=== PATIENT | male | born 1965 | race Caucasian/White ===

== ENCOUNTER 2020-08-05 13:24 | Emergency (ER) | payer BC ==
--- NOTE | 2020-08-05 15:55 | EDM.PDOC ---
ED HPI GENERAL MEDICAL PROBLEM - General Chief Complaint: Cardiovascular Problem Stated Complaint: WEAKNESS Time Seen by Provider: 08/05/20 13:40 Source of Information: Reports: Patient, RN Notes Reviewed - History of Present Illness INITIAL COMMENTS - FREE TEXT/NARRATIVE: 54 yr old male referred to ED to R/O OLEG. He apparently went to the clinic with C/O fatigue, not feeling well for about a month. Labs were done at the clinic, faxed over to us for review. He denies chest or abd pain at time of exam. He did admit to triage nurse that he is drinking large amounts of liquor daily. Not currently working. Chronic cough but not worse than usual. No recent fever or chills. - Related Data Allergies Allergy/AdvReac Type Severity Reaction Status Date / Time naproxen [From Aleve] Allergy Severe Rash Verified 08/05/20 13:45 Past Medical History HEENT History: Reports: Impaired Vision Cardiovascular History: Reports: Hypertension Psychiatric History: Reports: Depression - Past Surgical History Musculoskeletal Surgical History: Reports: Other (See Below) Other Musculoskeletal Surgeries/Procedures:: knee surgery Social & Family History - Tobacco Use Tobacco Use Status *Q: Current Every Day Tobacco User Years of Tobacco use: 25 Packs/Tins Daily: 2 - Caffeine Use Caffeine Use: Reports: Coffee - Recreational Drug Use Recreational Drug Use: No ED ROS GENERAL - Review of Systems Review Of Systems: See Below Constitutional: Denies: Fever, Chills, Diaphoresis HEENT: Reports: No Symptoms Respiratory: Reports: Cough Cardiovascular: Denies: Chest Pain Endocrine: Reports: Fatigue GI/Abdominal: Reports: Decreased Appetite. Denies: Nausea, Vomiting : Reports: No Symptoms Musculoskeletal: Reports: No Symptoms Skin: Reports: No Symptoms Neurological: Reports: Other (low energy). Denies: Trouble Speaking, Difficulty Walking ED EXAM, GENERAL - Physical Exam Exam: See Below General Appearance: Alert, No Apparent Distress Head: Atraumatic. No: Facial Swelling Neck: Supple, Other (No JVD) Respiratory/Chest: No Respiratory Distress, Lungs Clear, Normal Breath Sounds. No: Rhonchi, Wheezing Cardiovascular: Regular Rate, Rhythm GI/Abdominal: Soft, Non-Tender Back Exam: No: CVA Tenderness (L), CVA Tenderness (R) Extremities: Non-Tender. No: Pedal Edema, Leg Pain, Increased Warmth, Redness Neurological: Alert, Oriented, No Motor/Sensory Deficits Skin Exam: Warm, Dry, Normal Color #1 Interpretation EKG Date: 08/05/20 Rhythm: NSR [place]: Normal P-Wave: Present QRS: Normal ST-T: Normal Course - Vital Signs Last Recorded V/S: Last Vital Signs Temp 97.1 F 08/05/20 13:39 Pulse 96 08/05/20 13:39 Resp 16 08/05/20 13:39 BP 166/87 H 08/05/20 13:39 Pulse Ox 96 08/05/20 13:39 - Orders/Labs/Meds Orders: Active Orders 24 hr Category Date Time Status EKG 12 Lead [EKG Documentation Completion] [RC] STAT Care 08/05/20 13:56 Active Labs: Laboratory Tests 08/05/20 Range/Units 14:15 Troponin I < 0.017 (0.00-0.056) ng/mL - Re-Assessments/Exams Free Text/Narrative Re-Assessment/Exam: 08/05/20 16:18 EKG does not show acute changes, trop did come back neg. Labs from clinic reviewed. covid neg. Discharge instr. as documented. Departure - Departure Time of Disposition: 16:03 Disposition: Home, Self-Care 01 Condition: Fair Clinical Impression: Fatigue, Alcohol abuse Instructions: Alcohol Use Disorder, Fatigue Referrals: PCP,None [Primary Care Provider] - Forms: ED Department Discharge Additional Instructions: Cut back on the amount of alcohol you are drinking to a more reasonable amount. Eat a healthy balanced diet with regular meals and snacks. Start a multivitamin once daily. Follow up clinic later this week or early next week for further evaluation and treatment. Sepsis Event Note (ED) - Evaluation Sepsis Screening Result: No Definite Risk - Focused Exam Vital Signs: Vital Signs Temp Pulse Resp BP Pulse Ox 08/05/20 13:39 97.1 F 96 16 166/87 H 96 - My Orders Last 24 Hours: My Active Orders 08/05/20 13:56 EKG 12 Lead [EKG Documentation Completion] [RC] STAT - Assessment/Plan Last 24 Hours: My Active Orders 08/05/20 13:56 EKG 12 Lead [EKG Documentation Completion] [RC] STAT
== END 2020-08-05 16:15 | disposition home or self-care (01) ==
LOC: JD.ED 13:24
DX: R53.83 Other fatigue (principal); F10.10 Alcohol abuse, uncomplicated; I10 Essential (primary) hypertension; F17.210 Nicotine dependence, cigarettes, uncomplicated
CPT/HCPCS: 36415; 84484; 93005; 99282; 99284-25

== ENCOUNTER 2020-10-07 07:12 | Inpatient (IN) | payer BC ==
[~2020-10-07 07:12] MED LIST: Lidocaine 1%/Sod Bicarbonate in NS 8.4% 1 ML Syringe IDERM PRN; Sodium Chloride 0.9% 10 ML Syringe FLUSH PRN
[2020-10-07] MEDS ORDERED: Bupivacaine 0.5%/EPINEPHrine 1:200,000 50 ML MDV ONE (07:15)
[2020-10-07] MEDS ORDERED: Lidocaine 1% with EPINEPHrine 1:100,000 20 ML MDV ONE (07:15)
[2020-10-07] MEDS: Lactated Ringers 1,000 ML IV SCH ×2 (07:20→08:46)
[2020-10-07] MEDS ORDERED: Lidocaine 1% 4 ML ONE (07:22)
[2020-10-07] MEDS ORDERED: fentaNYL 250 MCG/5 ML SDV ONE (07:22)
[2020-10-07] MEDS ORDERED: Propofol 200 MG/20 ML SDV ONE (07:22)
[2020-10-07] MEDS ORDERED: Midazolam 1 MG/ML 2 ML SDV ONE (07:22)
[2020-10-07] MEDS ORDERED: Dexamethasone 4 MG/ML 5 ML MDV ONE (07:24)
[2020-10-07] MEDS ORDERED: Ondansetron 4 MG/2 ML SDV ONE (07:24)
[2020-10-07] MEDS ORDERED: Rocuronium 50 MG/5 ML Vial ONE ×3 (07:25→13:09)
[2020-10-07] MEDS ORDERED: Ertapenem 1 GM Vial ONE (07:26)
--- NOTE | 2020-10-07 07:29 | PCM.PREANE ---
Preanesthetic Assessment - Procedure Proposed Procedure: laparoscopic extended right colectomy - Anesthesia/Transfusion/Family Hx Anesthesia History: Prior Anesthesia Without Reaction Family History of Anesthesia Reaction: No Transfusion History: No Prior Transfusion(s) Intubation History: Unknown - Review of Systems General: No Symptoms Pulmonary: No Symptoms Cardiovascular: No Symptoms Gastrointestinal: No Symptoms Neurological: No Symptoms Other: Reports: Thyroid Problems - Physical Assessment NPO Status Date: 10/06/20 NPO Status Time: 23:00 Height: 1.93 m Weight: 90.5 kg ASA Class: 3 Mental Status: Alert & Oriented x3 Dentition: Reports: Caries (poor dentition ) Thyro-Mental Finger Breadths: 3 Mouth Opening Finger Breadths: 5 ROM/Head Extension: Full - Allergies Allergies/Adverse Reactions: Allergies Allergy/AdvReac Type Severity Reaction Status Date / Time naproxen [From Aleve] Allergy Severe Rash Verified 10/06/20 09:42 - Blood Blood Available: No - Anesthesia Plan Pre-Op Medication Ordered: None - Acknowledgements Anesthesia Type Planned: General Anesthesia Pt an Appropriate Candidate for the Planned Anesthesia: Yes Alternatives and Risks of Anesthesia Discussed w Pt/Guardian: Yes Pt/Guardian Understands and Agrees with Anesthesia Plan: Yes PreAnesthesia Questionnaire HEENT History: Reports: Impaired Vision Cardiovascular History: Reports: Hypertension Respiratory History: Reports: None Gastrointestinal History: Reports: Other (See Below) Other Gastrointestinal History: colon mass Genitourinary History: Reports: None BETTING AGENCY MANAGER History: Reports: None Musculoskeletal History: Reports: Other (See Below) Other Musculoskeletal History: left knee surgery Neurological History: Reports: Other (See Below) Other Neuro History: bilateral foot tingling Psychiatric History: Reports: Addiction, Depression Endocrine/Metabolic History: Reports: Hypothyroidism Hematologic History: Reports: None Immunologic History: Reports: None Oncologic (Cancer) History: Reports: Colon Dermatologic History: Reports: None - Infectious Disease History Infectious Disease History: Reports: None - Past Surgical History Head Surgeries/Procedures: Reports: None Cardiovascular Surgical History: Reports: None Respiratory Surgical History: Reports: None GI Surgical History: Reports: Colonoscopy Female Surgical History: Reports: None Male Surgical History: Reports: None Endocrine Surgical History: Reports: None Neurological Surgical History: Reports: None Musculoskeletal Surgical History: Reports: Arthroscopic Knee Oncologic Surgical History: Reports: None Dermatological Surgical History: Reports: None - SUBSTANCE USE Tobacco Use Status *Q: Current Every Day Tobacco User Days Per Week of Alcohol Use: 7 Number of Drinks Per Day: 8 Total Drinks Per Week: 56 Recreational Drug Use History: No - HOME MEDS Home Medications: Home Meds Folic Acid 1 mg PO DAILY 10/06/20 [History] Gabapentin [Neurontin] 300 mg PO BID 10/06/20 [History] Levothyroxine [Synthroid] 50 mcg PO DAILY 10/06/20 [History] Sertraline HCl [Zoloft] 50 mg PO DAILY 10/06/20 [History] lisinopriL [Lisinopril] 20 mg PO DAILY 10/06/20 [History] traZODone HCl [Trazodone HCl] 50 mg PO BEDTIME 10/06/20 [History] - CURRENT (IN HOUSE) MEDS Current Meds: Current Medications Lactated Ringer's (Ringers, Lactated) 1,000 mls @ 125 mls/hr IV ASDIRECTED JOSHUA Stop: 10/07/20 23:00 Lidocaine/Sodium Bicarbonate (Buffered Lidocaine 1% In Ns 8.4%) 0.25 ml IDERM ONETIME PRN PRN Reason: Prior to IV Start Stop: 10/07/20 18:00 Sodium Chloride (Saline Flush) 10 ml FLUSH ASDIRECTED PRN PRN Reason: Keep Vein Open Stop: 10/07/20 18:00
[2020-10-07] MEDS ORDERED: Morphine PF 10 MG/10 ML SDV ONE ×2 (08:10→09:08)
[2020-10-07] MEDS ORDERED: Sodium Chloride 0.9% 10 ML ONE (08:27)
[2020-10-07] MEDS ORDERED: Lidocaine 1% 2 ML ONE (08:31)
[2020-10-07] MEDS ORDERED: Dexmedetomidine 200 MCG/2 ML SDV ONE (09:08)
[2020-10-07] MEDS ORDERED: EPINEPHrine 1 MG/ML SDV ONE (09:10)
[2020-10-07] MEDS ORDERED: Sodium Chloride 0.9% 100 ML ONE (09:36)
[2020-10-07] MEDS ORDERED: ePHEDrine 50 MG/ML SDV ONE (10:20)
[2020-10-07] MEDS ORDERED: Glycopyrrolate 0.2 MG/ML SDV ONE (10:20)
[2020-10-07] MEDS ORDERED: Ketamine 500 mg/10 ML MDV ONE (10:28)
--- NOTE | 2020-10-07 11:30 | PCM.SN.2 ---
- Free Text/Narrative Note: 0810 - attempt made to place epidural catheter. 3 attempts by myself and and 2 attempts made by Shelley Riggins CRNA. When loss of resistance made, catheter unable to be thread. Decision made to cease procedure and administer test dose of 1% lidocaine , 5 cc of Lidocaine with 1:200,000 epi. negative test dose, and patient did feel that his legs did get heavy, however, narcotic not administered due to unability to ascertain this was epidural space due to lack of ability to thread catheter. Decision made to take patient to OR to place spinal narcotic for post operative pain control. Patient's anatomy of spine, is not midline, but denies any history of surgical procedure, nor does he have any incisions. Spinal anesthesia placed in the OR on first attempt with 150 mcg of duramorph, 10 mcg of precedex and 10 mcg of epi.
[2020-10-07] MEDS ORDERED: Lactated Ringers 2,000 ML ONE (12:08)
[2020-10-07] MEDS ORDERED: Furosemide 20 MG/2 ML VIAL ONE ×2 (12:41→13:39)
[2020-10-07] MEDS ORDERED: Lactated Ringers 1,000 ML ONE ×3 (13:40→15:38)
[2020-10-07] MEDS ORDERED: diphenhydrAMINE 50 MG/ML SDV IVPUSH PRN (15:06)
[2020-10-07] MEDS ORDERED: Ondansetron 4 MG/2 ML SDV IVPUSH PRN ×2 (15:06→17:10)
[2020-10-07] MEDS ORDERED: Bacitracin Oint 15 GM Tube ONE (16:19)
[2020-10-07] MEDS ORDERED: HYDROmorphone 1 MG/ML Syringe IVPUSH PRN ×2 (16:29→16:47)
--- NOTE | 2020-10-07 16:50 | PCM.POSTAN ---
POST ANESTHESIA ASSESSMENT - MENTAL STATUS Mental Status: Alert, Oriented - VITAL SIGNS Vital Signs: Last Vital Signs Temp 36.7 C 10/07/20 07:10 Pulse 69 10/07/20 08:50 Resp 16 10/07/20 07:10 BP 85/68 L 10/07/20 08:50 Pulse Ox 97 10/07/20 08:50 - RESPIRATORY Respiratory Status: Respiratory Rate WNL, Airway Patent, O2 Saturation Stable, Supplemental Oxygen - CARDIOVASCULAR CV Status: Pulse Rate WNL, Blood Pressure Stable - GASTROINTESTINAL GI Status: No Symptoms - PAIN Pain Score: 6 - POST OP HYDRATION Hydration Status: Adequate & Stable - OBSERVATIONS Free Text/Narrative:: no anesthesia complications noted
[2020-10-07] MEDS ORDERED: fentaNYL 100 MCG/2 ML SDV ONE (16:52)
[2020-10-07] MEDS: fentaNYL 100 MCG/2 ML SDV IVPUSH PRN ×2 (16:53→17:15)
[2020-10-07] MEDS ORDERED: Docusate Sodium 100 MG Cap PO PRN (17:10)
--- NOTE | 2020-10-07 18:43 | OR ---
DATE OF OPERATION: 10/07/2020 SURGEON: Barrera Chan MD PREOPERATIVE DIAGNOSIS: Colon mass in the proximal transverse colon. POSTOPERATIVE DIAGNOSIS: Colon mass in the proximal transverse colon. OPERATION PERFORMED: Laparoscopic extended right hemicolectomy. ANESTHESIA: General endotracheal and intrathecal morphine. ESTIMATED BLOOD LOSS: 100 mL. COMPLICATIONS: None. URINE OUTPUT: 340 mL. FLUIDS: 7 L. INDICATIONS AND CONSENT: The patient is a 54-year-old male with history significant for smoking and alcohol abuse. He has abstained from alcohol for the past 1.5 months. 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 He also had enlarged lymph nodes in the hepatic hilum. These were biopsied, and they appeared to be inflammatory in nature. Therefore, surgical resection of the colon mass given absence of metastatic disease was offered to the patient. We had a long discussion in clinic, where the patient and his mother were present. We discussed risks, benefits, and alternatives for this procedure specific risks discussed include complications from the surgery such as anastomotic leak, bleeding, infection, and need for further interventions. We discussed postoperative stay. The patient agreed to proceed with the procedure. All questions were answered and informed consent was obtained. DESCRIPTION OF PROCEDURE: The patient was met in the preop area. Anesthesia attempted to place an epidural catheter, but this was unsuccessful after multiple attempts, therefore intrathecal morphine was injected into the patient, and the patient was taken to the operating room and placed in supine position. The patient was padded appropriately, and general anesthesia was induced. Abdomen was clipped of any hair, and prepped and draped in the usual sterile fashion. A formal time-out was performed prior to the start of the procedure. The patient had already received 1 g of Invanz as a preoperative antibiotic. We began the procedure by injecting local anesthetic in the supraumbilical position, making a vertical incision. Then Paty clamp was used to elevate the umbilical stalk. A Veress needle was inserted through this incision, and the abdomen was insufflated to 15 mmHg. Then, at this point, the abdomen was quickly inspected. Abdominal wall was clear. Liver and the pelvis as well as the diaphragm did not reveal any evidence of metastasis. At this point, we proceeded with placing 3 additional 5 mm trocars, one was in the left lower quadrant, another in the left upper quadrant, and one in the suprapubic area. The patient was placed in the Trendelenburg position with left side down, and we began the procedure by elevating the ileocecal junction to reveal ridge of the ileocolic vessels. The peritoneum just below the ileocolic vessels was scored with LigaSure Impact, and the retroperitoneum was entered. Retroperitoneal dissection in the caudal-to- cranial fashion was performed using the lower 2 trocar sites. The duodenum was clearly visualized and protected. The right gerota's fascia was left posteriorly. The dissection was carried cranially all the way to the hepatic flexure and close to the white line of Toldt on the right side. Then, we returned to the ileocolic pedicle for ligation. Both artery and vein were dissected clear at their origin and ligated separately with 2 clips each before being transected. There was no bleeding upon ligation of this. We followed the course of the superior mesenteric artery, dissecting the right colon mesentery off the medial attachments all the way to the transverse mesocolon. Once we get to the transverse mesocolon, there was an appreciable edema at the base of the transverse mesocolon, right above the pancreatic neck. This area was thick. Middle colic vessels could not be clearly identified. Therefore, I made a decision to start cranially. The patient was changed position into reverse Trendelenburg and omentum was reflected caudally. The lesser sac was entered close to the stomach, sparing the epiploic artery. The gastrocolic ligament was divided avoiding injury to the right epiploic. This was taken all the way to the hepatic flexure which was taken down. The middle colic vessels were then meticulously identified and isolated. This was a challenging dissection due to think tissue and some edema in this area, likely secondary to the tumor. However, with meticulous dissection, the middle colic vein was isolated, and clipped at its origin with 5 mm clips and divided. Then the middle colic artery was similarly dissected, clipped and divided at its trunk before the division of the left and right branches. Efforts were made to confirm the origin of the middle colic artery both from the superior aspect and from the inferior aspect through the transverse mesocolon before its division. There was slight bleeding from the middle colic artery due to loose clip. This was controlled with a 0 Vicryl endoloop stitch successfully. Then, we proceeded with division of the transverse mesocolon. Dissection was continued until about 10 cm distal to the mass in the mid to distal transverse colon. Once this was accomplished, we proceeded with lateral mobilization of the right colon by dividing the right while line of Todt until the dissection was merged with medial dissection freeing the right colon. The terminal ileum was also mobilized. Once this was done, we went back and confirmed the margins around the mass, and these were good. Any blood from the abdomen was suctioned out, and we again inspected the ligations of all vessels, ileocolic as well as middle colic, and these were all hemostatic. Of note, in this patient there was no identifiable middle colic artery. Once colon mobilization was satisfactory, we proceeded with an extracorporeal anastomosis. To do this, a supraumbilical incision was extended. The medium Valdo wound protector was placed and the specimen was extruded from the abdomen. Proximal transection was done at the terminal ileum about 15 cm away from the ileocecal valve. We used a blue load of linear GIOVANNI stapler to divide the terminal ileum. The colon was transected at the mid to distal transverse colon, about 10 cm from the mass. Once again, we used a blue load linear GIOVANNI stapler to divide the colon at this site. The accompanying omentum of the divided colon was divided to be included with colon specimen, and the intervening mesocolon was divided as well as small bowel mesentery was also divided. Once this was done, the specimen was taken off the field. The mass was large and circumferential. It did not appear to be stuck to any particular organ, but it had caused a lot of inflammatory change around its mesentery. The mass was passed off for pathology. Then, we proceeded with side to side isoperistaltic anastomosis between the terminal ileum and distal transverse colon. To do this, the stump of the terminal ileum was opened up as well as the transverse colon, and a side to side isoperistaltic anastomosis was completed in a stapled fashion using a blue linear Endo GIOVANNI staple, and common enterotomy was closed with a TA stapler using a blue load. The staple line of the anastomosis was imbricated with 3-0 silk stitches. The staple line appeared to be hemostatic. The anastomosis was widely patent. The abdomen was reinspected. There was no accumulation of blood. Therefore, the anastomosis was placed back into the abdomen. Once this was done, we proceeded with closure of the abdominal wall. The Valdo was removed. The Mini-laparotomy was closed with 0 PDS stitches in a running fashion, and the skin was clean and reapproximated with mary. The three 5 mm trocar sites were also reapproximated with mary. This marked the end of the procedure. The patient tolerated the procedure very well. Counts were correct x2. The patient was awoken from anesthesia, extubated, and taken to the ICU for monitoring due to concerns of low urine output intraoperatively. Instruments, sharps and sponges were counted and found to be correct x 2. Patient was awakened from anesthesia, extubated and taken to the PACU in stable condition. SISSY /[id number] MTDPeña
[2020-10-07] MEDS: oxyCODONE 5 MG Tab PO PRN (19:18)
[2020-10-07] MEDS: Acetaminophen 325 MG Tab PO SCH (19:18)
[2020-10-07] MEDS: traZODone 50 MG Tab PO SCH (22:12)
[2020-10-07] MEDS: HYDROmorphone 1 MG/ML Syringe IVPUSH PRN (22:12)
[2020-10-08] MEDS ORDERED: Gabapentin 300 MG Cap PO ONE (00:30)
[2020-10-08] MEDS: Acetaminophen 325 MG Tab PO SCH ×5 (00:37→23:33)
[2020-10-08] MEDS: Lactated Ringers 1,000 ML IV SCH ×3 (02:06→22:31)
[2020-10-08] MEDS: HYDROmorphone 1 MG/ML Syringe IVPUSH PRN ×5 (03:56→23:13)
[2020-10-08] MEDS ORDERED: Magnesium Sulfate/Water 2 GM/50 ML BAG IV ONE (07:15)
--- NOTE | 2020-10-08 07:48 | PCM48HPAN ---
Post Anesthesia Note - EVALUATION WITHIN 48HRS OF ANESTHETIC Vital Signs in Normal Range: Yes Patient Participated in Evaluation: Yes Respiratory Function Stable: Yes Airway Patent: Yes Cardiovascular Function Stable: Yes Hydration Status Stable: Yes Pain Control Satisfactory: Yes Nausea and Vomiting Control Satisfactory: Yes Mental Status Recovered: Yes Vital Signs: Last Vital Signs Temp 99.2 F 10/08/20 04:00 Pulse 77 10/08/20 04:01 Resp 15 10/08/20 04:01 BP 100/56 L 10/08/20 04:00 Pulse Ox 94 L 10/08/20 04:01 - COMMENTS/OBSERVATIONS Free Text/Narrative:: laying in bed. States it doesn't hurt much unless move. Encouraged to deep breath and cough etc..States Anesthesia was good. Denies nausea
[2020-10-08] MEDS: Gabapentin 300 MG Cap PO SCH ×3 (08:26→21:04)
[2020-10-08] MEDS: oxyCODONE 5 MG Tab PO PRN ×3 (08:26→21:04)
[2020-10-08] MEDS: Enoxaparin 40 MG/0.4 ML Syringe SUBCUT SCH (08:29)
--- NOTE | 2020-10-08 14:31 | PCM.PN ---
- General Info Date of Service: 10/08/20 Subjective Update: Has pain, denies nausea, tolerating sips of water and ice chips. Has not ambulated much today. Functional Status: Reports: Pain Controlled (fairly), Ambulating - Review of Systems General: Reports: No Symptoms HEENT: Reports: No Symptoms Pulmonary: Reports: No Symptoms Cardiovascular: Reports: No Symptoms Gastrointestinal: Reports: Abdominal Pain (post surgical) Genitourinary: Reports: No Symptoms Musculoskeletal: Reports: No Symptoms Skin: Reports: No Symptoms Neurological: Reports: No Symptoms - Patient Data Vitals - Most Recent: Last Vital Signs Temp 99.1 F 10/08/20 08:00 Pulse 76 10/08/20 12:00 Resp 15 10/08/20 04:01 BP 97/59 L 10/08/20 12:00 Pulse Ox 94 L 10/08/20 12:00 Weight - Most Recent: 90.265 kg I&O - Last 24 Hours: Intake & Output 10/07/20 10/08/20 10/08/20 22:59 06:59 14:59 Intake Total 300 983 Output Total 900 1150 550 Balance -600 -167 -550 Lab Results Last 24 Hours: Laboratory Results - last 24 hr 10/08/20 10/08/20 Range/Units 05:51 05:51 WBC 8.93 (4.23-9.07) K/mm3 RBC 3.70 L (4.63-6.08) M/mm3 Hgb 11.0 L D (13.7-17.5) gm/dl Hct 34.8 L (40.1-51.0) % MCV 94.1 H (79.0-92.2) fl MCH 29.7 (25.7-32.2) pg MCHC 31.6 L (32.2-35.5) g/dl RDW Std Deviation 47.8 H (35.1-43.9) fL Plt Count 153 L D (163-337) K/mm3 MPV 10.4 (9.4-12.3) fl Neut % (Auto) 70.1 H (34.0-67.9) % Lymph % (Auto) 18.8 L (21.8-53.1) % [facility] % (Auto) 10.4 (5.3-12.2) % Eos % (Auto) 0.4 L (0.8-7.0) Baso % (Auto) 0.1 (0.1-1.2) % Neut # (Auto) 6.25 H (1.78-5.38) K/mm3 Lymph # (Auto) 1.68 (1.32-3.57) K/mm3 [facility] # (Auto) 0.93 H (0.30-0.82) K/mm3 Eos # (Auto) 0.04 (0.04-0.54) K/mm3 Baso # (Auto) 0.01 (0.01-0.08) K/mm3 Sodium 142 (136-145) mEq/L Potassium 4.1 (3.5-5.1) mEq/L Chloride 107 (98-107) mEq/L Carbon Dioxide 25 (21-32) mEq/L Anion Gap 14.1 (5-15) BUN 14 (7-18) mg/dL Creatinine 0.8 (0.7-1.3) mg/dL Est Cr Clr Drug Dosing 129.60 mL/min Estimated GFR (MDRD) > 60 (>60) mL/min BUN/Creatinine Ratio 17.5 (14-18) Glucose 109 H (74-106) mg/dL Calcium 8.6 (8.5-10.1) mg/dL Phosphorus 5.5 H (2.6-4.7) mg/dL Magnesium 1.4 L (1.8-2.4) mg/dl Med Orders - Current: Current Medications Acetaminophen (Tylenol) 650 mg PO Q6H [facility] Last Admin: 10/08/20 12:21 Dose: 650 mg Documented by: Docusate Sodium (Colace) 100 mg PO BID PRN PRN Reason: Constipation Enoxaparin Sodium (Lovenox) 40 mg SUBCUT DAILY [facility] Last Admin: 10/08/20 08:29 Dose: 40 mg Documented by: Gabapentin (Neurontin) 300 mg PO TID [facility] Last Admin: 10/08/20 08:26 Dose: 300 mg Documented by: Hydromorphone HCl (Dilaudid) 1 mg IVPUSH Q3H PRN PRN Reason: Pain (severe 7-10) Last Admin: 10/08/20 11:18 Dose: 1 mg Documented by: Lactated Ringer's (Ringers, Lactated) 1,000 mls @ 100 mls/hr IV ASDIRECTED [facility] Last Admin: 10/08/20 12:17 Dose: 100 mls/hr Documented by: Ondansetron HCl (Zofran) 4 mg IVPUSH Q6H PRN PRN Reason: Nausea/Vomiting Oxycodone HCl (Oxycodone) 5 mg PO Q6H PRN PRN Reason: Pain (moderate 4-6) Last Admin: 10/08/20 08:26 Dose: 5 mg Documented by: Trazodone HCl (Trazodone) 50 mg PO BEDTIME [facility] Last Admin: 10/07/20 22:12 Dose: Not Given Documented by: Discontinued Medications Bacitracin (Bacitracin Oint) Confirm Administered Dose 15 gm .ROUTE .STK-MED ONE Stop: 10/07/20 16:20 Bupivacaine HCl/Epinephrine Bitart (Marcaine 0.5%/Epinephrine 1:200,000) Confirm Administered Dose 50 ml .ROUTE .STK-MED ONE Stop: 10/07/20 07:16 Last Admin: 10/07/20 09:49 Dose: 38 ml Documented by: Dexamethasone (Dexamethasone) Confirm Administered Dose 20 mg .ROUTE .STK-MED ONE Stop: 10/07/20 07:25 Dexmedetomidine HCl (Precedex) Confirm Administered Dose 200 mcg .ROUTE .STK-MED ONE Stop: 10/07/20 09:09 Diphenhydramine HCl (Benadryl) 25 mg IVPUSH Q6H PRN PRN Reason: pruritis Stop: 10/07/20 18:00 Ephedrine Sulfate (Ephedrine Sulfate) Confirm Administered Dose 50 mg .ROUTE .STK-MED ONE Stop: 10/07/20 10:21 Epinephrine HCl (Adrenalin) Confirm Administered Dose 1 mg .ROUTE .STK-MED ONE Stop: 10/07/20 09:11 Ertapenem (Invanz) Confirm Administered Dose 1 gm .ROUTE .STK-MED ONE Stop: 10/07/20 07:27 Fentanyl (Sublimaze) Confirm Administered Dose 250 mcg .ROUTE .STK-MED ONE Stop: 10/07/20 07:23 Fentanyl (Sublimaze) 50 mcg IVPUSH Q5M PRN PRN Reason: Pain Stop: 10/07/20 19:00 Last Admin: 10/07/20 17:15 Dose: 50 mcg Documented by: Fentanyl (Sublimaze) Confirm Administered Dose 100 mcg .ROUTE .STK-MED ONE Stop: 10/07/20 16:53 Last Admin: 10/07/20 19:00 Dose: Not Given Documented by: Furosemide (Lasix) Confirm Administered Dose 20 mg .ROUTE .STK-MED ONE Stop: 10/07/20 12:42 Furosemide (Lasix) Confirm Administered Dose 20 mg .ROUTE .STK-MED ONE Stop: 10/07/20 13:40 Gabapentin (Neurontin) 300 mg PO ONETIME ONE Stop: 10/08/20 00:31 Last Admin: 10/08/20 00:38 Dose: 300 mg Documented by: Glycopyrrolate (Robinul) Confirm Administered Dose 0.6 mg .ROUTE .STK-MED ONE Stop: 10/07/20 10:21 Hydromorphone HCl (Dilaudid) 1 mg IVPUSH Q3H PRN PRN Reason: Pain Hydromorphone HCl (Dilaudid) 1 mg IVPUSH Q1H PRN PRN Reason: Abdominal Pain Stop: 10/07/20 19:00 Lactated Ringer's (Ringers, Lactated) 1,000 mls @ 125 mls/hr IV ASDIRECTED [facility] Stop: 10/07/20 23:00 Last Infusion: 10/07/20 18:01 Dose: Infused Documented by: Lidocaine HCl (Xylocaine-Mpf 1%) Confirm Administered Dose 4 mls @ as directed .ROUTE .ST-MED ONE Stop: 10/07/20 07:23 Sodium Chloride (Normal Saline) Confirm Administered Dose 10 mls @ as directed .ROUTE .ST-MED ONE Stop: 10/07/20 08:28 Lidocaine HCl (Xylocaine-Mpf 1%) Confirm Administered Dose 2 mls @ as directed .ROUTE .STK-MED ONE Stop: 10/07/20 08:32 Sodium Chloride (Normal Saline) Confirm Administered Dose 100 mls @ as directed .ROUTE .ST-MED ONE Stop: 10/07/20 09:37 Lactated Ringer's (Ringers, Lactated) Confirm Administered Dose 2,000 mls @ as directed .ROUTE .STK-MED ONE Stop: 10/07/20 12:09 Lactated Ringer's (Ringers, Lactated) Confirm Administered Dose 1,000 mls @ as directed .ROUTE .STK-MED ONE Stop: 10/07/20 13:41 Lactated Ringer's (Ringers, Lactated) Confirm Administered Dose 1,000 mls @ as directed .ROUTE .STK-MED ONE Stop: 10/07/20 14:20 Lactated Ringer's (Ringers, Lactated) Confirm Administered Dose 1,000 mls @ as directed .ROUTE .STK-MED ONE Stop: 10/07/20 15:39 Magnesium Sulfate (Magnesium Sulfate In Water 2 Gm/50 Ml) 2 gm in 50 mls @ 50 mls/hr IV ONETIME ONE Stop: 10/08/20 08:14 Last Admin: 10/08/20 08:29 Dose: 50 mls/hr Documented by: Ketamine HCl (Ketalar) Confirm Administered Dose 500 mg .ROUTE .STK-MED ONE Stop: 10/07/20 10:29 Lidocaine/Epinephrine (Xylocaine 1% With Epinephrine 1:100,000) Confirm Administered Dose 20 ml .ROUTE .STK-MED ONE Stop: 10/07/20 07:16 Lidocaine/Sodium Bicarbonate (Buffered Lidocaine 1% In Ns 8.4%) 0.25 ml IDERM ONETIME PRN PRN Reason: Prior to IV Start Stop: 10/07/20 18:00 Last Admin: 10/07/20 07:20 Dose: 0.25 ml Documented by: Midazolam HCl (Versed 1 Mg/Ml) Confirm Administered Dose 2 mg .ROUTE .STK-MED ONE Stop: 10/07/20 07:23 Morphine Sulfate (Duramorph Pf) Confirm Administered Dose 10 mg .ROUTE .STK-MED ONE Stop: 10/07/20 08:11 Morphine Sulfate (Duramorph Pf) Confirm Administered Dose 10 mg .ROUTE .STK-MED ONE Stop: 10/07/20 09:09 Neostigmine Methylsulfate (Neostigmine Methylsulfate) Confirm Administered Dose 5 mg .ROUTE .STK-MED ONE Stop: 10/07/20 10:21 Ondansetron HCl (Zofran) Confirm Administered Dose 4 mg .ROUTE .STK-MED ONE Stop: 10/07/20 07:25 Ondansetron HCl (Zofran) 4 mg IVPUSH ONETIME PRN PRN Reason: Nausea/Vomiting Stop: 10/07/20 18:00 Propofol (Diprivan 20 Ml) Confirm Administered Dose 200 mg .ROUTE .STK-MED ONE Stop: 10/07/20 07:23 Rocuronium [place] (Zemuron) Confirm Administered Dose 50 mg .ROUTE .STK-MED ONE Stop: 10/07/20 07:26 Rocuronium [place] (Zemuron) Confirm Administered Dose 50 mg .ROUTE .STK-MED ONE Stop: 10/07/20 09:48 Rocuronium [place] (Zemuron) Confirm Administered Dose 50 mg .ROUTE .STK-MED ONE Stop: 10/07/20 13:10 Sodium Chloride (Saline Flush) 10 ml FLUSH ASDIRECTED PRN PRN Reason: Keep Vein Open Stop: 10/07/20 18:00 - Exam Quality Assessment: DVT Prophylaxis General: Alert, Oriented, Cooperative Lungs: Clear to Auscultation, Normal Respiratory Effort, Crackles (at the bases) Cardiovascular: Regular Rate, Regular Rhythm, No Murmurs GI/Abdominal Exam: Soft, No Distention, No Mass, Tender (to palpation) Sepsis Event Note - Evaluation Sepsis Screening Result: No Definite Risk - Focused Exam Vital Signs: Vital Signs Temp Pulse Resp BP BP Pulse Ox Pulse Ox 10/08/20 12:00 76 97/59 L 94 L 10/08/20 09:06 95 10/08/20 08:50 78 114/52 L 94 L 10/08/20 08:00 99.1 F 69 92/52 L 98 10/08/20 04:01 77 15 94 L 10/08/20 04:00 99.2 F 84 16 100/56 L 94 L 10/08/20 03:59 85 15 95 10/08/20 03:30 80 16 102/54 L 99 10/08/20 03:29 83 15 99 10/08/20 03:01 81 15 97 10/08/20 03:00 77 15 102/53 L 97 10/08/20 02:59 78 16 96 10/08/20 02:30 79 15 97/55 L 97 10/08/20 02:29 77 17 96 - Problem List Review Problem List Initiated/Reviewed/Updated: No - My Orders Last 24 Hours: My Active Orders 10/07/20 Dinner Nothing Per Oral Diet [DIET] 10/07/20 17:03 Cardiac Monitoring [RC] . DIRECTED RT Incentive Spirometry [RC] Q1HWA Up ad Swetha [RC] ASDIRECTED Resuscitation Status Routine 10/07/20 17:04 Patient Status [ADT] Routine Oxygen Therapy [RC] PRN 10/07/20 17:05 Head of Bed Elevation [RC] BID Up to Chair [RC] .TID 10/07/20 17:10 Docusate Sodium [Colace] 100 mg PO BID PRN HYDROmorphone [Dilaudid] 1 mg IVPUSH Q3H PRN Ondansetron [Zofran] 4 mg IVPUSH Q6H PRN oxyCODONE 5 mg PO Q6H PRN DVT/VTE Prophylaxis Reflex [OM.PC] Routine 10/07/20 17:12 Antiembolic Devices [RC] BID VTE/DVT Education [RC] BID 10/07/20 18:00 Acetaminophen [TylenoL] 650 mg PO Q6H Lactated Ringers [Ringers, Lactated] 1,000 ml IV ASDIRECTED 10/07/20 21:00 traZODone 50 mg PO BEDTIME 10/08/20 09:00 Enoxaparin [Lovenox] 40 mg SUBCUT DAILY Gabapentin [Neurontin] 300 mg PO TID 10/09/20 05:11 BASIC METABOLIC PANEL,BMP [CHEM] AM CBC WITH AUTO DIFF [HEME] AM MAGNESIUM [CHEM] AM PHOSPHORUS [CHEM] AM 10/10/20 05:11 BASIC METABOLIC PANEL,BMP [CHEM] AM CBC WITH AUTO DIFF [HEME] AM MAGNESIUM [CHEM] AM PHOSPHORUS [CHEM] AM 10/11/20 05:11 BASIC METABOLIC PANEL,BMP [CHEM] AM CBC WITH AUTO DIFF [HEME] AM MAGNESIUM [CHEM] AM PHOSPHORUS [CHEM] AM 10/12/20 05:11 BASIC METABOLIC PANEL,BMP [CHEM] AM CBC WITH AUTO DIFF [HEME] AM MAGNESIUM [CHEM] AM PHOSPHORUS [CHEM] AM - Assessment Assessment:: POD1 extended right hemicolectomy. Progressing fine - Plan Plan:: - Pain control today - OOB to chair and ambulate - DC holbrook catheter - continue ice chips and sips of water - Will continue to follow
[2020-10-08] MEDS: traZODone 50 MG Tab PO SCH (21:04)
[2020-10-09] MEDS: HYDROmorphone 1 MG/ML Syringe IVPUSH PRN ×5 (03:17→22:58)
[2020-10-09] MEDS: Acetaminophen 325 MG Tab PO SCH ×3 (06:23→17:48)
[2020-10-09] MEDS ORDERED: Lidocaine 1% 2 ML ONE (08:08)
[2020-10-09] MEDS: D5 1/2 NS w/ 20 mEq/L KCl 1,000 ML IV SCH (08:27)
[2020-10-09] MEDS: Gabapentin 300 MG Cap PO SCH ×3 (08:27→20:30)
[2020-10-09] MEDS: Enoxaparin 40 MG/0.4 ML Syringe SUBCUT SCH (08:27)
[2020-10-09] MEDS: oxyCODONE 5 MG Tab PO PRN ×2 (08:30→17:48)
[2020-10-09] MEDS ORDERED: Magnesium Sulfate/Water 2 GM/50 ML BAG IV ONE (13:35)
--- NOTE | 2020-10-09 13:50 | PCM.PN ---
- General Info Date of Service: 10/09/20 Subjective Update: Patient had trouble voiding spontaneously and had to be straight cathed twice, more than 400 mL were removed. This morning he could not urinate again and 900 mL were drained after holbrook replaced. He denies nausea or vomiting. Tolerating sips of fluid. Has ambulated. Pain is better controlled. Functional Status: Reports: Pain Controlled, Ambulating, Incentive Spirometry - Review of Systems General: Reports: No Symptoms HEENT: Reports: No Symptoms Pulmonary: Reports: No Symptoms Cardiovascular: Reports: No Symptoms Gastrointestinal: Reports: Abdominal Pain (post op) Genitourinary: Reports: No Symptoms Musculoskeletal: Reports: No Symptoms Skin: Reports: No Symptoms Neurological: Reports: No Symptoms Psychiatric: Reports: No Symptoms - Patient Data Vitals - Most Recent: Last Vital Signs Temp 98.1 F 10/09/20 08:34 Pulse 76 10/09/20 05:00 Resp 13 10/09/20 08:34 BP 85/55 L 10/09/20 08:34 Pulse Ox 94 L 10/09/20 08:54 Weight - Most Recent: 95.118 kg I&O - Last 24 Hours: Intake & Output 10/08/20 10/09/20 10/09/20 22:59 06:59 14:59 Intake Total 1345 1200 Output Total 550 1500 900 Balance 795 -300 -900 Lab Results Last 24 Hours: Laboratory Results - last 24 hr 10/09/20 10/09/20 Range/Units 07:11 07:11 WBC 7.87 (4.23-9.07) K/mm3 RBC 3.44 L (4.63-6.08) M/mm3 Hgb 10.1 L (13.7-17.5) gm/dl Hct 32.5 L (40.1-51.0) % MCV 94.5 H (79.0-92.2) fl MCH 29.4 (25.7-32.2) pg MCHC 31.1 L (32.2-35.5) g/dl RDW Std Deviation 47.3 H (35.1-43.9) fL Plt Count 152 L (163-337) K/mm3 MPV 10.1 (9.4-12.3) fl Neut % (Auto) 65.8 (34.0-67.9) % Lymph % (Auto) 19.3 L (21.8-53.1) % Hand % (Auto) 11.3 (5.3-12.2) % Eos % (Auto) 3.2 (0.8-7.0) Baso % (Auto) 0.3 (0.1-1.2) % Neut # (Auto) 5.18 (1.78-5.38) K/mm3 Lymph # (Auto) 1.52 (1.32-3.57) K/mm3 Hand # (Auto) 0.89 H (0.30-0.82) K/mm3 Eos # (Auto) 0.25 (0.04-0.54) K/mm3 Baso # (Auto) 0.02 (0.01-0.08) K/mm3 Sodium 139 (136-145) mEq/L Potassium 3.8 (3.5-5.1) mEq/L Chloride 104 (98-107) mEq/L Carbon Dioxide 27 (21-32) mEq/L Anion Gap 11.8 (5-15) BUN 8 (7-18) mg/dL Creatinine 0.7 (0.7-1.3) mg/dL Est Cr Clr Drug Dosing 148.11 mL/min Estimated GFR (MDRD) > 60 (>60) mL/min BUN/Creatinine Ratio 11.4 L (14-18) Glucose 98 (74-106) mg/dL Calcium 9.0 (8.5-10.1) mg/dL Phosphorus 3.6 (2.6-4.7) mg/dL Magnesium 1.5 L (1.8-2.4) mg/dl Med Orders - Current: Current Medications Acetaminophen (Tylenol) 650 mg PO Q6H [facility] Last Admin: 10/09/20 12:16 Dose: 650 mg Documented by: Docusate Sodium (Colace) 100 mg PO BID PRN PRN Reason: Constipation Last Admin: 10/08/20 21:04 Dose: 100 mg Documented by: Enoxaparin Sodium (Lovenox) 40 mg SUBCUT DAILY [facility] Last Admin: 10/09/20 08:27 Dose: 40 mg Documented by: Gabapentin (Neurontin) 300 mg PO TID [facility] Last Admin: 10/09/20 08:27 Dose: 300 mg Documented by: Hydromorphone HCl (Dilaudid) 1 mg IVPUSH Q3H PRN PRN Reason: Pain (severe 7-10) Last Admin: 10/09/20 06:25 Dose: 1 mg Documented by: Potassium Chloride/Dextrose/Sod Cl (D5 1/2 Ns W/ 20 Meq/L Kcl) 1,000 mls @ 50 mls/hr IV ASDIRECTED [facility] Last Admin: 10/09/20 08:27 Dose: 50 mls/hr Documented by: Magnesium Sulfate (Magnesium Sulfate In Water 2 Gm/50 Ml) 2 gm in 50 mls @ 25 mls/hr IV ONETIME ONE Stop: 10/09/20 15:34 Ondansetron HCl (Zofran) 4 mg IVPUSH Q6H PRN PRN Reason: Nausea/Vomiting Oxycodone HCl (Oxycodone) 5 mg PO Q6H PRN PRN Reason: Pain (moderate 4-6) Last Admin: 10/09/20 08:30 Dose: 5 mg Documented by: Trazodone HCl (Trazodone) 50 mg PO BEDTIME [facility] Last Admin: 10/08/20 21:04 Dose: 50 mg Documented by: Discontinued Medications Bacitracin (Bacitracin Oint) Confirm Administered Dose 15 gm .ROUTE .STK-MED ONE Stop: 10/07/20 16:20 Bupivacaine HCl/Epinephrine Bitart (Marcaine 0.5%/Epinephrine 1:200,000) Confirm Administered Dose 50 ml .ROUTE .STK-MED ONE Stop: 10/07/20 07:16 Last Admin: 10/07/20 09:49 Dose: 38 ml Documented by: Dexamethasone (Dexamethasone) Confirm Administered Dose 20 mg .ROUTE .STK-MED ONE Stop: 10/07/20 07:25 Dexmedetomidine HCl (Precedex) Confirm Administered Dose 200 mcg .ROUTE .STK-MED ONE Stop: 10/07/20 09:09 Diphenhydramine HCl (Benadryl) 25 mg IVPUSH Q6H PRN PRN Reason: pruritis Stop: 10/07/20 18:00 Ephedrine Sulfate (Ephedrine Sulfate) Confirm Administered Dose 50 mg .ROUTE .STK-MED ONE Stop: 10/07/20 10:21 Epinephrine HCl (Adrenalin) Confirm Administered Dose 1 mg .ROUTE .STK-MED ONE Stop: 10/07/20 09:11 Ertapenem (Invanz) Confirm Administered Dose 1 gm .ROUTE .STK-MED ONE Stop: 10/07/20 07:27 Fentanyl (Sublimaze) Confirm Administered Dose 250 mcg .ROUTE .STK-MED ONE Stop: 10/07/20 07:23 Fentanyl (Sublimaze) 50 mcg IVPUSH Q5M PRN PRN Reason: Pain Stop: 10/07/20 19:00 Last Admin: 10/07/20 17:15 Dose: 50 mcg Documented by: Fentanyl (Sublimaze) Confirm Administered Dose 100 mcg .ROUTE .STK-MED ONE Stop: 10/07/20 16:53 Last Admin: 10/07/20 19:00 Dose: Not Given Documented by: Furosemide (Lasix) Confirm Administered Dose 20 mg .ROUTE .STK-MED ONE Stop: 10/07/20 12:42 Furosemide (Lasix) Confirm Administered Dose 20 mg .ROUTE .STK-MED ONE Stop: 10/07/20 13:40 Gabapentin (Neurontin) 300 mg PO ONETIME ONE Stop: 10/08/20 00:31 Last Admin: 10/08/20 00:38 Dose: 300 mg Documented by: Glycopyrrolate (Robinul) Confirm Administered Dose 0.6 mg .ROUTE .STK-MED ONE Stop: 10/07/20 10:21 Hydromorphone HCl (Dilaudid) 1 mg IVPUSH Q3H PRN PRN Reason: Pain Hydromorphone HCl (Dilaudid) 1 mg IVPUSH Q1H PRN PRN Reason: Abdominal Pain Stop: 10/07/20 19:00 Lactated Ringer's (Ringers, Lactated) 1,000 mls @ 125 mls/hr IV ASDIRECTED [facility] Stop: 10/07/20 23:00 Last Infusion: 10/07/20 18:01 Dose: Infused Documented by: Lidocaine HCl (Xylocaine-Mpf 1%) Confirm Administered Dose 4 mls @ as directed .ROUTE .STK-MED ONE Stop: 10/07/20 07:23 Sodium Chloride (Normal Saline) Confirm Administered Dose 10 mls @ as directed .ROUTE .STK-MED ONE Stop: 10/07/20 08:28 Lidocaine HCl (Xylocaine-Mpf 1%) Confirm Administered Dose 2 mls @ as directed .ROUTE .STK-MED ONE Stop: 10/07/20 08:32 Sodium Chloride (Normal Saline) Confirm Administered Dose 100 mls @ as directed .ROUTE .STK-MED ONE Stop: 10/07/20 09:37 Lactated Ringer's (Ringers, Lactated) Confirm Administered Dose 2,000 mls @ as directed .ROUTE .STK-MED ONE Stop: 10/07/20 12:09 Lactated Ringer's (Ringers, Lactated) Confirm Administered Dose 1,000 mls @ as directed .ROUTE .STK-MED ONE Stop: 10/07/20 13:41 Lactated Ringer's (Ringers, Lactated) Confirm Administered Dose 1,000 mls @ as directed .ROUTE .STK-MED ONE Stop: 10/07/20 14:20 Lactated Ringer's (Ringers, Lactated) Confirm Administered Dose 1,000 mls @ as directed .ROUTE .STK-MED ONE Stop: 10/07/20 15:39 Lactated Ringer's (Ringers, Lactated) 1,000 mls @ 100 mls/hr IV ASDIRECTED [facility] Last Admin: 10/08/20 22:31 Dose: 100 mls/hr Documented by: Magnesium Sulfate (Magnesium Sulfate In Water 2 Gm/50 Ml) 2 gm in 50 mls @ 50 mls/hr IV ONETIME ONE Stop: 10/08/20 08:14 Last Admin: 10/08/20 08:29 Dose: 50 mls/hr Documented by: Lidocaine HCl (Xylocaine-Mpf 1%) Confirm Administered Dose 2 mls @ as directed .ROUTE .ST-MED ONE Stop: 10/09/20 08:09 Ketamine HCl (Ketalar) Confirm Administered Dose 500 mg .ROUTE .STK-MED ONE Stop: 10/07/20 10:29 Lidocaine/Epinephrine (Xylocaine 1% With Epinephrine 1:100,000) Confirm Administered Dose 20 ml .ROUTE .STK-MED ONE Stop: 10/07/20 07:16 Lidocaine/Sodium Bicarbonate (Buffered Lidocaine 1% In Ns 8.4%) 0.25 ml IDERM ONETIME PRN PRN Reason: Prior to IV Start Stop: 10/07/20 18:00 Last Admin: 10/07/20 07:20 Dose: 0.25 ml Documented by: Midazolam HCl (Versed 1 Mg/Ml) Confirm Administered Dose 2 mg .ROUTE .STK-MED ONE Stop: 10/07/20 07:23 Morphine Sulfate (Duramorph Pf) Confirm Administered Dose 10 mg .ROUTE .STK-MED ONE Stop: 10/07/20 08:11 Morphine Sulfate (Duramorph Pf) Confirm Administered Dose 10 mg .ROUTE .STK-MED ONE Stop: 10/07/20 09:09 Neostigmine Methylsulfate (Neostigmine Methylsulfate) Confirm Administered Dose 5 mg .ROUTE .STK-MED ONE Stop: 10/07/20 10:21 Ondansetron HCl (Zofran) Confirm Administered Dose 4 mg .ROUTE .STK-MED ONE Stop: 10/07/20 07:25 Ondansetron HCl (Zofran) 4 mg IVPUSH ONETIME PRN PRN Reason: Nausea/Vomiting Stop: 10/07/20 18:00 Propofol (Diprivan 20 Ml) Confirm Administered Dose 200 mg .ROUTE .STK-MED ONE Stop: 10/07/20 07:23 Rocuronium [place] (Zemuron) Confirm Administered Dose 50 mg .ROUTE .STK-MED ONE Stop: 10/07/20 07:26 Rocuronium [place] (Zemuron) Confirm Administered Dose 50 mg .ROUTE .STK-MED ONE Stop: 10/07/20 09:48 Rocuronium [place] (Zemuron) Confirm Administered Dose 50 mg .ROUTE .STK-MED ONE Stop: 10/07/20 13:10 Sodium Chloride (Saline Flush) 10 ml FLUSH ASDIRECTED PRN PRN Reason: Keep Vein Open Stop: 10/07/20 18:00 - Exam Quality Assessment: Supplemental Oxygen General: Alert, Oriented, Cooperative Cardiovascular: Regular Rate, Regular Rhythm, No Murmurs GI/Abdominal Exam: Soft, Distended, Tender Sepsis Event Note - Evaluation Sepsis Screening Result: No Definite Risk - Focused Exam Vital Signs: Vital Signs Temp Pulse Resp BP Pulse Ox Pulse Ox 10/09/20 08:54 94 L 10/09/20 08:34 98.1 F 13 85/55 L 92 L 10/09/20 05:00 76 16 95 10/09/20 04:00 97.7 F 15 99/56 L 96 10/09/20 03:00 76 19 90 L 10/09/20 02:00 68 17 92 L - Problem List Review Problem List Initiated/Reviewed/Updated: No - My Orders Last 24 Hours: My Active Orders 10/09/20 07:24 Patient Status [ADT] Routine 10/09/20 08:00 D5 1/2 NS w/ 20 mEq/L KCl 1,000 ml IV ASDIRECTED 10/09/20 Lunch Clear Liquid Diet [DIET] 10/09/20 13:35 Magnesium Sulfate/Water [Magnesium Sulfate in Water 2 GM/50 ML] 2 gm in 50 ml IV ONETIME 10/10/20 05:11 BASIC METABOLIC PANEL,BMP [CHEM] AM CBC WITH AUTO DIFF [HEME] AM MAGNESIUM [CHEM] AM PHOSPHORUS [CHEM] AM 10/11/20 05:11 BASIC METABOLIC PANEL,BMP [CHEM] AM CBC WITH AUTO DIFF [HEME] AM MAGNESIUM [CHEM] AM PHOSPHORUS [CHEM] AM 10/12/20 05:11 BASIC METABOLIC PANEL,BMP [CHEM] AM CBC WITH AUTO DIFF [HEME] AM MAGNESIUM [CHEM] AM PHOSPHORUS [CHEM] AM - Assessment Assessment:: POD2 extended right hemicolectomy. Could not void, holbrook re-placed - Plan Plan:: - Continue ambulation - Start clears today, take it slow to avoid nausea and vomiting as the abdomen is still distended - Continue holbrook catheter for at least 48 hrs - change fluid to d5 1/2 NS with 20 mED KCL - Transfer to MEd/Surg status without Tele today - Repleted Mag - Continue daily labs
[2020-10-09] MEDS: traZODone 50 MG Tab PO SCH (20:30)
[2020-10-10] MEDS: oxyCODONE 5 MG Tab PO PRN (00:32)
[2020-10-10] MEDS: Acetaminophen 325 MG Tab PO SCH ×2 (00:33→05:41)
[2020-10-10] MEDS: HYDROmorphone 1 MG/ML Syringe IVPUSH PRN ×7 (02:06→22:23)
[2020-10-10] MEDS ORDERED: Lactated Ringers 500 ML IV ONE (02:36)
[2020-10-10] MEDS: D5 1/2 NS w/ 20 mEq/L KCl 1,000 ML IV SCH (04:22)
[2020-10-10] MEDS ORDERED: Lactated Ringers 1,000 ML IV ONE (08:31)
--- NOTE | 2020-10-10 08:47 | PCM.PN ---
- General Info Date of Service: 10/10/20 Subjective Update: Patient had increased pain overnight. Started having nausea and feelings of heartburn. No flatus or BM yet. No fevers or chills. UOP dropped to 15 cc/hr and appears concentrated. Functional Status: Reports: Ambulating Pain Score: 7 - Review of Systems General: Reports: Other (nausea) HEENT: Reports: No Symptoms Pulmonary: Reports: No Symptoms Cardiovascular: Reports: No Symptoms Gastrointestinal: Reports: Abdominal Pain, Nausea Genitourinary: Reports: No Symptoms Musculoskeletal: Reports: Back Pain - Patient Data Vitals - Most Recent: Last Vital Signs Temp 97.0 F 10/10/20 04:00 Pulse 79 10/09/20 22:00 Resp 20 10/10/20 04:00 BP 113/67 10/10/20 04:00 Pulse Ox 95 10/10/20 04:00 Weight - Most Recent: 95.311 kg I&O - Last 24 Hours: Intake & Output 10/09/20 10/10/20 10/10/20 22:59 06:59 14:59 Intake Total 1322 1404 Output Total 1110 150 Balance 212 1254 Lab Results Last 24 Hours: Laboratory Results - last 24 hr 10/10/20 10/10/20 Range/Units 05:27 05:27 WBC 13.28 H (4.23-9.07) K/mm3 RBC 4.12 L (4.63-6.08) M/mm3 Hgb 12.2 L D (13.7-17.5) gm/dl Hct 38.1 L (40.1-51.0) % MCV 92.5 H (79.0-92.2) fl MCH 29.6 (25.7-32.2) pg MCHC 32.0 L (32.2-35.5) g/dl RDW Std Deviation 47.0 H (35.1-43.9) fL Plt Count 216 (163-337) K/mm3 MPV 10.6 (9.4-12.3) fl Neut % (Auto) 83.0 H (34.0-67.9) % Lymph % (Auto) 9.9 L (21.8-53.1) % [place] % (Auto) 6.0 (5.3-12.2) % Eos % (Auto) 0.8 (0.8-7.0) Baso % (Auto) 0.1 (0.1-1.2) % Neut # (Auto) 11.02 H (1.78-5.38) K/mm3 Lymph # (Auto) 1.31 L (1.32-3.57) K/mm3 [place] # (Auto) 0.80 (0.30-0.82) K/mm3 Eos # (Auto) 0.11 (0.04-0.54) K/mm3 Baso # (Auto) 0.01 (0.01-0.08) K/mm3 Manual Slide Review Abnormal smear Sodium 140 (136-145) mEq/L Potassium 4.1 (3.5-5.1) mEq/L Chloride 102 (98-107) mEq/L Carbon Dioxide 28 (21-32) mEq/L Anion Gap 14.1 (5-15) BUN 8 (7-18) mg/dL Creatinine 0.7 (0.7-1.3) mg/dL Est Cr Clr Drug Dosing 148.11 mL/min Estimated GFR (MDRD) > 60 (>60) mL/min BUN/Creatinine Ratio 11.4 L (14-18) Glucose 140 H (74-106) mg/dL Calcium 9.2 (8.5-10.1) mg/dL Phosphorus 5.1 H (2.6-4.7) mg/dL Magnesium 1.5 L (1.8-2.4) mg/dl Med Orders - Current: Current Medications Docusate Sodium (Colace) 100 mg PO BID PRN PRN Reason: Constipation Last Admin: 10/08/20 21:04 Dose: 100 mg Documented by: Enoxaparin Sodium (Lovenox) 40 mg SUBCUT DAILY [facility] Last Admin: 10/09/20 08:27 Dose: 40 mg Documented by: Hydromorphone HCl (Dilaudid) 1 mg IVPUSH Q3H PRN PRN Reason: Pain (severe 7-10) Last Admin: 10/10/20 05:41 Dose: 1 mg Documented by: Potassium Chloride/Dextrose/Sod Cl (D5 1/2 Ns W/ 20 Meq/L Kcl) 1,000 mls @ 125 mls/hr IV ASDIRECTED [facility] Last Admin: 10/10/20 04:22 Dose: 100 mls/hr Documented by: Lactated Ringer's (Ringers, Lactated) 1,000 mls @ 1,000 mls/hr IV .BOLUS ONE Stop: 10/10/20 09:30 Magnesium Sulfate (Magnesium Sulfate In Water 2 Gm/50 Ml) 2 gm in 50 mls @ 25 mls/hr IV ONETIME ONE Stop: 10/10/20 10:59 Ondansetron HCl (Zofran) 4 mg IVPUSH Q6H PRN PRN Reason: Nausea/Vomiting Last Admin: 10/10/20 01:12 Dose: 4 mg Documented by: Trazodone HCl (Trazodone) 50 mg PO BEDTIME [facility] Last Admin: 10/09/20 20:30 Dose: 50 mg Documented by: Discontinued Medications Acetaminophen (Tylenol) 650 mg PO Q6H [facility] Last Admin: 10/10/20 05:41 Dose: 650 mg Documented by: Bacitracin (Bacitracin Oint) Confirm Administered Dose 15 gm .ROUTE .STK-MED ONE Stop: 10/07/20 16:20 Bupivacaine HCl/Epinephrine Bitart (Marcaine 0.5%/Epinephrine 1:200,000) Confirm Administered Dose 50 ml .ROUTE .STK-MED ONE Stop: 10/07/20 07:16 Last Admin: 10/07/20 09:49 Dose: 38 ml Documented by: Dexamethasone (Dexamethasone) Confirm Administered Dose 20 mg .ROUTE .STK-MED ONE Stop: 10/07/20 07:25 Dexmedetomidine HCl (Precedex) Confirm Administered Dose 200 mcg .ROUTE .STK-MED ONE Stop: 10/07/20 09:09 Diphenhydramine HCl (Benadryl) 25 mg IVPUSH Q6H PRN PRN Reason: pruritis Stop: 10/07/20 18:00 Ephedrine Sulfate (Ephedrine Sulfate) Confirm Administered Dose 50 mg .ROUTE .STK-MED ONE Stop: 10/07/20 10:21 Epinephrine HCl (Adrenalin) Confirm Administered Dose 1 mg .ROUTE .STK-MED ONE Stop: 10/07/20 09:11 Ertapenem (Invanz) Confirm Administered Dose 1 gm .ROUTE .STK-MED ONE Stop: 10/07/20 07:27 Fentanyl (Sublimaze) Confirm Administered Dose 250 mcg .ROUTE .STK-MED ONE Stop: 10/07/20 07:23 Fentanyl (Sublimaze) 50 mcg IVPUSH Q5M PRN PRN Reason: Pain Stop: 10/07/20 19:00 Last Admin: 10/07/20 17:15 Dose: 50 mcg Documented by: Fentanyl (Sublimaze) Confirm Administered Dose 100 mcg .ROUTE .STK-MED ONE Stop: 10/07/20 16:53 Last Admin: 10/07/20 19:00 Dose: Not Given Documented by: Furosemide (Lasix) Confirm Administered Dose 20 mg .ROUTE .STK-MED ONE Stop: 10/07/20 12:42 Furosemide (Lasix) Confirm Administered Dose 20 mg .ROUTE .STK-MED ONE Stop: 10/07/20 13:40 Gabapentin (Neurontin) 300 mg PO TID [facility] Last Admin: 10/09/20 20:30 Dose: 300 mg Documented by: Gabapentin (Neurontin) 300 mg PO ONETIME ONE Stop: 10/08/20 00:31 Last Admin: 10/08/20 00:38 Dose: 300 mg Documented by: Glycopyrrolate (Robinul) Confirm Administered Dose 0.6 mg .ROUTE .STK-MED ONE Stop: 10/07/20 10:21 Hydromorphone HCl (Dilaudid) 1 mg IVPUSH Q3H PRN PRN Reason: Pain Hydromorphone HCl (Dilaudid) 1 mg IVPUSH Q1H PRN PRN Reason: Abdominal Pain Stop: 10/07/20 19:00 Lactated Ringer's (Ringers, Lactated) 1,000 mls @ 125 mls/hr IV ASDIRECTED [facility] Stop: 10/07/20 23:00 Last Infusion: 10/07/20 18:01 Dose: Infused Documented by: Lidocaine HCl (Xylocaine-Mpf 1%) Confirm Administered Dose 4 mls @ as directed .ROUTE .STK-MED ONE Stop: 10/07/20 07:23 Sodium Chloride (Normal Saline) Confirm Administered Dose 10 mls @ as directed .ROUTE .STK-MED ONE Stop: 10/07/20 08:28 Lidocaine HCl (Xylocaine-Mpf 1%) Confirm Administered Dose 2 mls @ as directed .ROUTE .STK-MED ONE Stop: 10/07/20 08:32 Sodium Chloride (Normal Saline) Confirm Administered Dose 100 mls @ as directed .ROUTE .STK-MED ONE Stop: 10/07/20 09:37 Lactated Ringer's (Ringers, Lactated) Confirm Administered Dose 2,000 mls @ as directed .ROUTE .STK-MED ONE Stop: 10/07/20 12:09 Lactated Ringer's (Ringers, Lactated) Confirm Administered Dose 1,000 mls @ as directed .ROUTE .STK-MED ONE Stop: 10/07/20 13:41 Lactated Ringer's (Ringers, Lactated) Confirm Administered Dose 1,000 mls @ as directed .ROUTE .STK-MED ONE Stop: 10/07/20 14:20 Lactated Ringer's (Ringers, Lactated) Confirm Administered Dose 1,000 mls @ as directed .ROUTE .STK-MED ONE Stop: 10/07/20 15:39 Lactated Ringer's (Ringers, Lactated) 1,000 mls @ 100 mls/hr IV ASDIRECTED [facility] Last Admin: 10/08/20 22:31 Dose: 100 mls/hr Documented by: Magnesium Sulfate (Magnesium Sulfate In Water 2 Gm/50 Ml) 2 gm in 50 mls @ 50 mls/hr IV ONETIME ONE Stop: 10/08/20 08:14 Last Admin: 10/08/20 08:29 Dose: 50 mls/hr Documented by: Lidocaine HCl (Xylocaine-Mpf 1%) Confirm Administered Dose 2 mls @ as directed .ROUTE .STK-MED ONE Stop: 10/09/20 08:09 Magnesium Sulfate (Magnesium Sulfate In Water 2 Gm/50 Ml) 2 gm in 50 mls @ 25 mls/hr IV ONETIME ONE Stop: 10/09/20 15:34 Last Admin: 10/09/20 13:48 Dose: 25 mls/hr Documented by: Lactated Ringer's (Ringers, Lactated) 500 mls @ 999 mls/hr IV .BOLUS ONE Stop: 10/10/20 03:06 Last Admin: 10/10/20 03:40 Dose: 999 mls/hr Documented by: Ketamine HCl (Ketalar) Confirm Administered Dose 500 mg .ROUTE .STK-MED ONE Stop: 10/07/20 10:29 Lidocaine/Epinephrine (Xylocaine 1% With Epinephrine 1:100,000) Confirm Administered Dose 20 ml .ROUTE .STK-MED ONE Stop: 10/07/20 07:16 Lidocaine/Sodium Bicarbonate (Buffered Lidocaine 1% In Ns 8.4%) 0.25 ml IDERM ONETIME PRN PRN Reason: Prior to IV Start Stop: 10/07/20 18:00 Last Admin: 10/07/20 07:20 Dose: 0.25 ml Documented by: Midazolam HCl (Versed 1 Mg/Ml) Confirm Administered Dose 2 mg .ROUTE .STK-MED ONE Stop: 10/07/20 07:23 Morphine Sulfate (Duramorph Pf) Confirm Administered Dose 10 mg .ROUTE .STK-MED ONE Stop: 10/07/20 08:11 Morphine Sulfate (Duramorph Pf) Confirm Administered Dose 10 mg .ROUTE .STK-MED ONE Stop: 10/07/20 09:09 Neostigmine Methylsulfate (Neostigmine Methylsulfate) Confirm Administered Dose 5 mg .ROUTE .STK-MED ONE Stop: 10/07/20 10:21 Ondansetron HCl (Zofran) Confirm Administered Dose 4 mg .ROUTE .STK-MED ONE Stop: 10/07/20 07:25 Ondansetron HCl (Zofran) 4 mg IVPUSH ONETIME PRN PRN Reason: Nausea/Vomiting Stop: 10/07/20 18:00 Oxycodone HCl (Oxycodone) 5 mg PO Q6H PRN PRN Reason: Pain (moderate 4-6) Last Admin: 10/10/20 00:32 Dose: 5 mg Documented by: Propofol (Diprivan 20 Ml) Confirm Administered Dose 200 mg .ROUTE .STK-MED ONE Stop: 10/07/20 07:23 Rocuronium Tell (Zemuron) Confirm Administered Dose 50 mg .ROUTE .STK-MED ONE Stop: 10/07/20 07:26 Rocuronium Tell (Zemuron) Confirm Administered Dose 50 mg .ROUTE .STK-MED ONE Stop: 10/07/20 09:48 Rocuronium Tell (Zemuron) Confirm Administered Dose 50 mg .ROUTE .STK-MED ONE Stop: 10/07/20 13:10 Sodium Chloride (Saline Flush) 10 ml FLUSH ASDIRECTED PRN PRN Reason: Keep Vein Open Stop: 10/07/20 18:00 - Exam Quality Assessment: Supplemental Oxygen General: Alert, Oriented, Cooperative Lungs: Normal Respiratory Effort, Crackles Cardiovascular: Regular Rate, Regular Rhythm, No Murmurs GI/Abdominal Exam: Soft, Distended (significantly), Tender (diffusely, no rebound), Other (incisions are well appearing, mary intact. ) Sepsis Event Note - Evaluation Sepsis Screening Result: No Definite Risk - Focused Exam Vital Signs: Vital Signs Temp Pulse Resp BP Pulse Ox 10/10/20 04:00 97.0 F 20 113/67 95 10/09/20 22:00 97.1 F 79 17 117/62 95 - Problem List Review Problem List Initiated/Reviewed/Updated: No - My Orders Last 24 Hours: My Active Orders 10/09/20 08:00 D5 1/2 NS w/ 20 mEq/L KCl 1,000 ml IV ASDIRECTED 10/09/20 Lunch Clear Liquid Diet [DIET] 10/10/20 08:31 Lactated Ringers [Ringers, Lactated] 1,000 ml IV .BOLUS Magnesium Sulfate/Water [Magnesium Sulfate in Water 2 GM/50 ML] 2 gm in 50 ml IV ONETIME 10/10/20 08:34 Gastrointestinal Tube Mgmt [RC] ASDIRECTED Abdomen 1V Upright [CR] Stat Chest 1V Frontal [CR] Stat NG [Nasogastric Orogastric Tube Insertion] [OM.PC] Routine 10/11/20 05:11 BASIC METABOLIC PANEL,BMP [CHEM] AM CBC WITH AUTO DIFF [HEME] AM MAGNESIUM [CHEM] AM PHOSPHORUS [CHEM] AM 10/12/20 05:11 BASIC METABOLIC PANEL,BMP [CHEM] AM CBC WITH AUTO DIFF [HEME] AM MAGNESIUM [CHEM] AM PHOSPHORUS [CHEM] AM - Assessment Assessment:: POD3 extended right hemicolectomy. Developed worsening ileus and dehydration - Plan Plan:: - We will place NGT today to help with distention - Stop PO meds, we will do IV only at this time due to worsening ileus - Give 1L LR bolus and increase maintenance IVF to 125 mL/hr - Monitor UOP - Continue to encourage ambulation - Continue to encourage IS - Incisions appear well - Vitals are stable. We will continue to monitor
[2020-10-10] MEDS ORDERED: Magnesium Sulfate/Water 2 GM/50 ML BAG IV ONE (09:00)
--- NOTE | 2020-10-10 09:21 | CR ---
Chest: Frontal view of the chest was obtained. Comparison: No prior chest imaging is available. Free air is seen beneath the right and left hemidiaphragms. Atelectasis is noted within the left lung base. Endotracheal tube courses into the proximal stomach. No acute bony abnormality is appreciated. Impression: 1. Free air beneath both hemidiaphragms. 2. Left basilar atelectasis. 3. Tip of nasogastric tube is not seen but courses into the proximal stomach. Diagnostic code #3
--- NOTE | 2020-10-10 09:24 | CR ---
Abdomen: Supine and upright views of the abdomen were obtained. Comparison: No previous study. Tip of endogastric tube lies within the proximal stomach. Small bowel shows differential air-fluid levels and dilatation. Surgical clips are noted within the mid abdomen. Two surgical clips are also seen within the upper right abdomen. Free air is seen beneath both hemidiaphragms. Impression: 1. Dilated small bowel loops showing differential air-fluid levels, please correlate if this represents small bowel obstruction. 2. Free air beneath both hemidiaphragms. 3. Previous surgery as noted above. 4. Tip of nasogastric tube within the proximal stomach. Diagnostic code #3
[2020-10-10] MEDS: Enoxaparin 40 MG/0.4 ML Syringe SUBCUT SCH (09:47)
--- NOTE | 2020-10-10 11:26 | PCM.SN.2 ---
- Free Text/Narrative Note: I reviewed the Xrays chest and abdomen. - Patient has more free air than would be expected post operatively. Concern for anastomotic leak. Vitals are stable. - Will obtain CT a/p with PO and IV contrast - NPO now - Resuscitative IVF - LR at 150 cc/hr - Broad spectrum antibiotics - Zosyn
[2020-10-10] MEDS: Lactated Ringers 1,000 ML IV SCH (11:36)
[2020-10-10] MEDS ORDERED: Diatrizoate Meglumine/Diatrizoate Sodium 37% 120 ML Bottle PO ONE (11:38)
[2020-10-10] MEDS ORDERED: Sodium Chloride 0.9% 10 ML Syringe FLUSH PRN (11:38)
[2020-10-10] MEDS ORDERED: Iopamidol 612 MG/ML 50 ML SDV IVPUSH ONE (11:38)
[2020-10-10] MEDS ORDERED: Iopamidol 612 MG/ML 100 ML Bottle IVPUSH ONE (11:38)
[2020-10-10] MEDS ORDERED: Piperacillin/Tazobactam 4.5 GM in Sodium Chloride 0.9% 100 ML IV ONE (12:00)
--- NOTE | 2020-10-10 13:26 | CT ---
CT abdomen and pelvis Technique: Multiple axial sections were obtained from above the dome of the diaphragm inferiorly through the pubic symphysis. Intravenous contrast was utilized. No oral contrast has been given. Reconstructed coronal and sagittal images were obtained. Comparison: Prior abdominal x-ray performed on the same day (8:54 AM). Findings: Increased density is seen within both lung bases either due to prominent atelectasis, aspiration or pneumonia. Very minimal bilateral pleural effusions are noted. There is ascites being seen around the liver and around the spleen. Spleen has a length of 16.6 cm. Liver contains no focal parenchymal abnormality. Adrenal glands show no nodule. Pancreas is within normal limits. Gallbladder contains no calcified gallstones. Aorta shows no aneurysm. Anterior skin mary are present within the abdominal wall. Ascites is noted within the pelvis which extends along the paracolic gutters. No retroperitoneal adenopathy is seen. Dilated small bowel loops are seen and this finding is either due to prominent small bowel ileus or obstruction at the anastomotic site of the transverse colon. There is evidence of prior right colectomy. Free air is identified within the abdomen. No discrete pelvic abnormality is seen other than ascites. Bone window settings were reviewed and show scattered degenerative change within the spine. Impression: 1. Very minimal bilateral pleural effusions. Thick area of atelectasis, aspiration or pneumonia noted within both lung bases. 2. Ascites around the liver and spleen and extending along the paracolic gutter into the pelvis. 3. Small amount of free air. 4. Prior right colectomy is present. Small bowel is dilated down to the anastomotic site into the transverse colon. Findings most likely represent prominent small bowel ileus although difficult to exclude small bowel obstruction at the anastomotic site. 5. Splenomegaly is seen with a length of 16.6 cm. Diagnostic code #3
--- NOTE | 2020-10-10 14:02 | PCM.SN.2 ---
- Free Text/Narrative Note: I reviewed the Ct images and read. No clear evidence of anastomotic leakage. patient felt better after NGT placement. Vitals remain stable. Patient likely has an ileus and/or edema at the anastomosis. We will continue expectant management at this time. - IVF resuscitation - Antibiotics - NPO and NGT to low wall suction - Pain management
[2020-10-10] MEDS: Piperacillin/Tazobactam 4.5 GM in Sodium Chloride 0.9% 100 ML IV SCH (20:12)
[2020-10-10] MEDS: traZODone 50 MG Tab PO SCH (21:47)
[2020-10-11] MEDS: Lactated Ringers 1,000 ML IV SCH (01:27)
[2020-10-11] MEDS: HYDROmorphone 1 MG/ML Syringe IVPUSH PRN ×7 (01:59→23:15)
[2020-10-11] MEDS: Piperacillin/Tazobactam 4.5 GM in Sodium Chloride 0.9% 100 ML IV SCH ×3 (04:25→19:57)
[2020-10-11] MEDS ORDERED: Magnesium Sulfate/Water 2 GM/50 ML BAG IV ONE (07:20)
[2020-10-11] MEDS ORDERED: Magnesium Sulfate/Water 50 ML IV ONE (08:00)
--- NOTE | 2020-10-11 08:08 | PCM.PN ---
- General Info Date of Service: 10/11/20 Subjective Update: patient is stable. no major issues overnight except that the urine turned more turbid overnight. UA was sent and has bacteria and WBC. No fevers. 1100cc per NGT overnight Functional Status: Reports: Ambulating - Review of Systems General: Reports: No Symptoms HEENT: Reports: No Symptoms Pulmonary: Reports: No Symptoms Cardiovascular: Reports: No Symptoms Gastrointestinal: Reports: Abdominal Pain Genitourinary: Reports: No Symptoms Musculoskeletal: Reports: No Symptoms Skin: Reports: No Symptoms - Patient Data Vitals - Most Recent: Last Vital Signs Temp 98.0 F 10/11/20 04:00 Pulse 69 10/11/20 04:00 Resp 14 10/11/20 04:00 BP 118/67 10/11/20 04:00 Pulse Ox 96 10/11/20 06:00 Weight - Most Recent: 96.524 kg I&O - Last 24 Hours: Intake & Output 10/10/20 10/11/20 10/11/20 22:59 06:59 14:59 Intake Total 2530 2019 Output Total 1425 1285 Balance 1105 734 Lab Results Last 24 Hours: Laboratory Results - last 24 hr 10/11/20 10/11/20 10/11/20 Range/Units 00:18 04:54 04:54 WBC 9.01 (4.23-9.07) K/mm3 RBC 3.69 L (4.63-6.08) M/mm3 Hgb 10.7 L D (13.7-17.5) gm/dl Hct 34.1 L (40.1-51.0) % MCV 92.4 H (79.0-92.2) fl MCH 29.0 (25.7-32.2) pg MCHC 31.4 L (32.2-35.5) g/dl RDW Std Deviation 46.6 H (35.1-43.9) fL Plt Count 214 (163-337) K/mm3 MPV 10.4 (9.4-12.3) fl Neut % (Auto) 67.4 (34.0-67.9) % Lymph % (Auto) 20.2 L (21.8-53.1) % [place] % (Auto) 6.3 (5.3-12.2) % Eos % (Auto) 5.8 (0.8-7.0) Baso % (Auto) 0.2 (0.1-1.2) % Neut # (Auto) 6.07 H (1.78-5.38) K/mm3 Lymph # (Auto) 1.82 (1.32-3.57) K/mm3 [place] # (Auto) 0.57 (0.30-0.82) K/mm3 Eos # (Auto) 0.52 (0.04-0.54) K/mm3 Baso # (Auto) 0.02 (0.01-0.08) K/mm3 Sodium 142 (136-145) mEq/L Potassium 3.6 (3.5-5.1) mEq/L Chloride 102 (98-107) mEq/L Carbon Dioxide 31 (21-32) mEq/L Anion Gap 12.6 (5-15) BUN 8 (7-18) mg/dL Creatinine 0.7 (0.7-1.3) mg/dL Est Cr Clr Drug Dosing 148.11 mL/min Estimated GFR (MDRD) > 60 (>60) mL/min BUN/Creatinine Ratio 11.4 L (14-18) Glucose 106 (74-106) mg/dL Calcium 9.2 (8.5-10.1) mg/dL Phosphorus 4.8 H (2.6-4.7) mg/dL Magnesium 1.4 L (1.8-2.4) mg/dl Urine Color Yellow (Yellow) Urine Appearance Turbid H (Clear) Urine pH 6.0 (5.0-8.0) Ur Specific [place] 1.025 (1.005-1.030) Urine Protein Trace H (Negative) Urine Glucose (UA) Negative (Negative) Urine Ketones Trace H (Negative) Urine Occult Blood Trace-intact H (Negative) Urine Nitrite Negative (Negative) Urine Bilirubin 1+ H (Negative) Urine Urobilinogen 0.2 (0.2-1.0) Ur Leukocyte Esterase Negative (Negative) Urine RBC 0-5 (0-5) /hpf Urine WBC 0-5 (0-5) /hpf Ur Squamous Epith Cells 0-5 (0-5) /hpf Calcium Carbonate Cryst Few H (NONE) Amorphous Sediment Many H (NOT SEEN) /hpf Urine Bacteria Many H (FEW) /hpf Urine Mucus Not seen (FEW) /hpf Med Orders - Current: Current Medications Docusate Sodium (Colace) 100 mg PO BID PRN PRN Reason: Constipation Last Admin: 10/08/20 21:04 Dose: 100 mg Documented by: Enoxaparin Sodium (Lovenox) 40 mg SUBCUT DAILY [facility] Last Admin: 10/10/20 09:47 Dose: 40 mg Documented by: Hydromorphone HCl (Dilaudid) 1 mg IVPUSH Q3H PRN PRN Reason: Pain (severe 7-10) Last Admin: 10/11/20 05:47 Dose: 1 mg Documented by: Piperacillin Sod/Tazobactam (Sod 4.5 gm/ Sodium Chloride) 100 mls @ 25 mls/hr IV Q8H [facility] Last Admin: 10/11/20 04:25 Dose: 25 mls/hr Documented by: Magnesium Sulfate (Magnesium Sulfate In Water 4 Gm/50 Ml) 50 mls @ 12.5 mls/hr IV ONETIME ONE Stop: 10/11/20 11:59 Potassium Cl/Dextrose/Lact Ringer's (D5 Lr With 20 Meq Kcl) 1,000 mls @ 150 mls/hr IV ASDIRECTED [facility] Ondansetron HCl (Zofran) 4 mg IVPUSH Q6H PRN PRN Reason: Nausea/Vomiting Last Admin: 10/10/20 01:12 Dose: 4 mg Documented by: Pantoprazole Sodium (Protonix Iv) 40 mg IVPUSH Q12H [facility] Sodium Chloride (Saline Flush) 10 ml FLUSH ONETIME PRN PRN Reason: IV FLUSH Last Admin: 10/10/20 12:49 Dose: 10 ml Documented by: Tamsulosin HCl (Flomax) 0.4 mg PO BIDPC [facility] Trazodone HCl (Trazodone) 50 mg PO BEDTIME [facility] Last Admin: 10/10/20 21:47 Dose: Not Given Documented by: Discontinued Medications Acetaminophen (Tylenol) 650 mg PO Q6H [facility] Last Admin: 10/10/20 05:41 Dose: 650 mg Documented by: Bacitracin (Bacitracin Oint) Confirm Administered Dose 15 gm .ROUTE .STK-MED ONE Stop: 10/07/20 16:20 Bupivacaine HCl/Epinephrine Bitart (Marcaine 0.5%/Epinephrine 1:200,000) Confirm Administered Dose 50 ml .ROUTE .STK-MED ONE Stop: 10/07/20 07:16 Last Admin: 10/07/20 09:49 Dose: 38 ml Documented by: Dexamethasone (Dexamethasone) Confirm Administered Dose 20 mg .ROUTE .STK-MED ONE Stop: 10/07/20 07:25 Dexmedetomidine HCl (Precedex) Confirm Administered Dose 200 mcg .ROUTE .STK-MED ONE Stop: 10/07/20 09:09 Diatrizoate Meglum/Diatrizoate Sod (Gastrografin 37%) 120 ml PO ONETIME ONE Stop: 10/10/20 11:39 Diphenhydramine HCl (Benadryl) 25 mg IVPUSH Q6H PRN PRN Reason: pruritis Stop: 10/07/20 18:00 Ephedrine Sulfate (Ephedrine Sulfate) Confirm Administered Dose 50 mg .ROUTE .STK-MED ONE Stop: 10/07/20 10:21 Epinephrine HCl (Adrenalin) Confirm Administered Dose 1 mg .ROUTE .STK-MED ONE Stop: 10/07/20 09:11 Ertapenem (Invanz) Confirm Administered Dose 1 gm .ROUTE .STK-MED ONE Stop: 10/07/20 07:27 Fentanyl (Sublimaze) Confirm Administered Dose 250 mcg .ROUTE .STK-MED ONE Stop: 10/07/20 07:23 Fentanyl (Sublimaze) 50 mcg IVPUSH Q5M PRN PRN Reason: Pain Stop: 10/07/20 19:00 Last Admin: 10/07/20 17:15 Dose: 50 mcg Documented by: Fentanyl (Sublimaze) Confirm Administered Dose 100 mcg .ROUTE .STK-MED ONE Stop: 10/07/20 16:53 Last Admin: 10/07/20 19:00 Dose: Not Given Documented by: Furosemide (Lasix) Confirm Administered Dose 20 mg .ROUTE .STK-MED ONE Stop: 10/07/20 12:42 Furosemide (Lasix) Confirm Administered Dose 20 mg .ROUTE .STK-MED ONE Stop: 10/07/20 13:40 Gabapentin (Neurontin) 300 mg PO TID JOSHUA Last Admin: 10/09/20 20:30 Dose: 300 mg Documented by: Gabapentin (Neurontin) 300 mg PO ONETIME ONE Stop: 10/08/20 00:31 Last Admin: 10/08/20 00:38 Dose: 300 mg Documented by: Glycopyrrolate (Robinul) Confirm Administered Dose 0.6 mg .ROUTE .STK-MED ONE Stop: 10/07/20 10:21 Hydromorphone HCl (Dilaudid) 1 mg IVPUSH Q3H PRN PRN Reason: Pain Hydromorphone HCl (Dilaudid) 1 mg IVPUSH Q1H PRN PRN Reason: Abdominal Pain Stop: 10/07/20 19:00 Lactated Ringer's (Ringers, Lactated) 1,000 mls @ 125 mls/hr IV ASDIRECTED [facility] Stop: 10/07/20 23:00 Last Infusion: 10/07/20 18:01 Dose: Infused Documented by: Lidocaine HCl (Xylocaine-Mpf 1%) Confirm Administered Dose 4 mls @ as directed .ROUTE .ST-MED ONE Stop: 10/07/20 07:23 Sodium Chloride (Normal Saline) Confirm Administered Dose 10 mls @ as directed .ROUTE .ST-MED ONE Stop: 10/07/20 08:28 Lidocaine HCl (Xylocaine-Mpf 1%) Confirm Administered Dose 2 mls @ as directed .ROUTE .ST-MED ONE Stop: 10/07/20 08:32 Sodium Chloride (Normal Saline) Confirm Administered Dose 100 mls @ as directed .ROUTE .ST-MED ONE Stop: 10/07/20 09:37 Lactated Ringer's (Ringers, Lactated) Confirm Administered Dose 2,000 mls @ as directed .ROUTE .ST-MED ONE Stop: 10/07/20 12:09 Lactated Ringer's (Ringers, Lactated) Confirm Administered Dose 1,000 mls @ as directed .ROUTE .ST-MED ONE Stop: 10/07/20 13:41 Lactated Ringer's (Ringers, Lactated) Confirm Administered Dose 1,000 mls @ as directed .ROUTE .ST-MED ONE Stop: 10/07/20 14:20 Lactated Ringer's (Ringers, Lactated) Confirm Administered Dose 1,000 mls @ as directed .ROUTE .STK-MED ONE Stop: 10/07/20 15:39 Lactated Ringer's (Ringers, Lactated) 1,000 mls @ 100 mls/hr IV ASDIRECTED [facility] Last Admin: 10/08/20 22:31 Dose: 100 mls/hr Documented by: Magnesium Sulfate (Magnesium Sulfate In Water 2 Gm/50 Ml) 2 gm in 50 mls @ 50 mls/hr IV ONETIME ONE Stop: 10/08/20 08:14 Last Admin: 10/08/20 08:29 Dose: 50 mls/hr Documented by: Potassium Chloride/Dextrose/Sod Cl (D5 1/2 Ns W/ 20 Meq/L Kcl) 1,000 mls @ 125 mls/hr IV ASDIRECTED [facility] Last Infusion: 10/10/20 10:19 Dose: 125 mls/hr Documented by: Lidocaine HCl (Xylocaine-Mpf 1%) Confirm Administered Dose 2 mls @ as directed .ROUTE .STK-MED ONE Stop: 10/09/20 08:09 Magnesium Sulfate (Magnesium Sulfate In Water 2 Gm/50 Ml) 2 gm in 50 mls @ 25 mls/hr IV ONETIME ONE Stop: 10/09/20 15:34 Last Admin: 10/09/20 13:48 Dose: 25 mls/hr Documented by: Lactated Ringer's (Ringers, Lactated) 500 mls @ 999 mls/hr IV .BOLUS ONE Stop: 10/10/20 03:06 Last Admin: 10/10/20 03:40 Dose: 999 mls/hr Documented by: Lactated Ringer's (Ringers, Lactated) 1,000 mls @ 1,000 mls/hr IV .BOLUS ONE Stop: 10/10/20 09:30 Last Admin: 10/10/20 09:15 Dose: 1,000 mls/hr Documented by: Magnesium Sulfate (Magnesium Sulfate In Water 2 Gm/50 Ml) 2 gm in 50 mls @ 25 mls/hr IV ONETIME ONE Stop: 10/10/20 10:59 Last Admin: 10/10/20 09:49 Dose: 25 mls/hr Documented by: Lactated Ringer's (Ringers, Lactated) 1,000 mls @ 150 mls/hr IV ASDIRECTED [facility] Last Admin: 10/11/20 01:27 Dose: 150 mls/hr Documented by: Piperacillin Sod/Tazobactam (Sod 4.5 gm/ Sodium Chloride) 100 mls @ 200 mls/hr IV ONETIME ONE Stop: 10/10/20 12:29 Last Admin: 10/10/20 11:31 Dose: 200 mls/hr Documented by: Iopamidol (Isovue-300 (61%)) 50 ml IVPUSH ONETIME ONE Stop: 10/10/20 11:39 Last Admin: 10/10/20 12:48 Dose: 50 ml Documented by: Iopamidol (Isovue-300 (61%)) 100 ml IVPUSH ONETIME ONE Stop: 10/10/20 11:39 Last Admin: 10/10/20 12:49 Dose: 100 ml Documented by: Ketamine HCl (Ketalar) Confirm Administered Dose 500 mg .ROUTE .STK-MED ONE Stop: 10/07/20 10:29 Lidocaine/Epinephrine (Xylocaine 1% With Epinephrine 1:100,000) Confirm Admi nistered Dose 20 ml .ROUTE .STK-MED ONE Stop: 10/07/20 07:16 Lidocaine/Sodium Bicarbonate (Buffered Lidocaine 1% In Ns 8.4%) 0.25 ml IDERM ONETIME PRN PRN Reason: Prior to IV Start Stop: 10/07/20 18:00 Last Admin: 10/07/20 07:20 Dose: 0.25 ml Documented by: Midazolam HCl (Versed 1 Mg/Ml) Confirm Administered Dose 2 mg .ROUTE .STK-MED ONE Stop: 10/07/20 07:23 Morphine Sulfate (Duramorph Pf) Confirm Administered Dose 10 mg .ROUTE .STK-MED ONE Stop: 10/07/20 08:11 Morphine Sulfate (Duramorph Pf) Confirm Administered Dose 10 mg .ROUTE .STK-MED ONE Stop: 10/07/20 09:09 Neostigmine Methylsulfate (Neostigmine Methylsulfate) Confirm Administered Dose 5 mg .ROUTE .STK-MED ONE Stop: 10/07/20 10:21 Ondansetron HCl (Zofran) Confirm Administered Dose 4 mg .ROUTE .STK-MED ONE Stop: 10/07/20 07:25 Ondansetron HCl (Zofran) 4 mg IVPUSH ONETIME PRN PRN Reason: Nausea/Vomiting Stop: 10/07/20 18:00 Oxycodone HCl (Oxycodone) 5 mg PO Q6H PRN PRN Reason: Pain (moderate 4-6) Last Admin: 10/10/20 00:32 Dose: 5 mg Documented by: Propofol (Diprivan 20 Ml) Confirm Administered Dose 200 mg .ROUTE .STK-MED ONE Stop: 10/07/20 07:23 Rocuronium [place] (Zemuron) Confirm Administered Dose 50 mg .ROUTE .STK-MED ONE Stop: 10/07/20 07:26 Rocuronium [place] (Zemuron) Confirm Administered Dose 50 mg .ROUTE .STK-MED ONE Stop: 10/07/20 09:48 Rocuronium [place] (Zemuron) Confirm Administered Dose 50 mg .ROUTE .STK-MED ONE Stop: 10/07/20 13:10 Sodium Chloride (Saline Flush) 10 ml FLUSH ASDIRECTED PRN PRN Reason: Keep Vein Open Stop: 10/07/20 18:00 - Exam Quality Assessment: Supplemental Oxygen General: Alert, Oriented, Cooperative, Moderate Distress Lungs: Normal Respiratory Effort, Crackles (in lower lungs) GI/Abdominal Exam: Soft, Distended, Tender (no rebound), Other (incisions are well approximated.) Sepsis Event Note - Evaluation Sepsis Screening Result: No Definite Risk - Focused Exam Vital Signs: Vital Signs Temp Pulse Resp BP Pulse Ox Pulse Ox 10/11/20 06:00 96 10/11/20 04:00 98.0 F 69 14 118/67 95 10/11/20 00:00 97.4 F 62 13 115/71 94 L 10/10/20 21:51 97.3 F 20 136/89 95 10/10/20 20:48 94 L - Problem List Review Problem List Initiated/Reviewed/Updated: No - My Orders Last 24 Hours: My Active Orders 10/10/20 08:34 Gastrointestinal Tube Mgmt [RC] Q4H NG [Nasogastric Orogastric Tube Insertion] [OM.PC] Routine 10/10/20 Lunch NPO Now [Nothing per Oral Now Diet] [DIET] 10/10/20 11:38 Sodium Chloride 0.9% [Saline Flush] 10 ml FLUSH ONETIME PRN 10/10/20 12:51 Admission Status [Patient Status] [ADT] Routine 10/10/20 20:00 Piperacillin/Tazobactam [Piperacil-Tazobact] 4.5 gm Sodium Chloride 0.9% [Normal Saline] 100 ml IV Q8H 10/11/20 07:30 Dextrose 5%-Lact Ringers w/KCl [D5 LR with 20 mEq KCl] 1,000 ml IV ASDIRECTED 10/11/20 08:00 Magnesium Sulfate/Water [Magnesium Sulfate in Water 4 GM/50 ML] 50 ml IV ONETIME Pantoprazole [ProTONIX IV] 40 mg IVPUSH Q12H 10/11/20 09:00 Tamsulosin [Flomax] 0.4 mg PO BIDPC 10/12/20 05:11 BASIC METABOLIC PANEL,BMP [CHEM] AM CBC WITH AUTO DIFF [HEME] AM MAGNESIUM [CHEM] AM PHOSPHORUS [CHEM] AM - Assessment Assessment:: POD4 extended right hemicolectomy. Has passed flatus x 1 today. Still distended abdomen. More back pain than abd pain - Plan Plan:: - Continue NGT, NPO, IVF - Start Flomax PO and attempt holbrook removal later today - NGT output is slight coffee ground. We will start PPIs 40 IV BID - Continue ambulation and IS - Replete magnesium - will change IVF to d5 LR - Continue current pain meds with dilaudid.
[2020-10-11] MEDS: Dextrose 5%-Lact Ringers w/KCl 1,000 ML IV SCH ×3 (08:09→22:38)
[2020-10-11] MEDS: Enoxaparin 40 MG/0.4 ML Syringe SUBCUT SCH (08:12)
[2020-10-11] MEDS: Pantoprazole 40 MG Vial IVPUSH SCH ×2 (08:12→20:26)
[2020-10-11] MEDS: Tamsulosin 0.4 MG Cap.ER PO SCH ×2 (09:23→18:17)
[2020-10-11] MEDS: Lidocaine 4% 1 each Patch TOP SCH (16:51)
[2020-10-11] MEDS: traZODone 50 MG Tab PO SCH (22:17)
[2020-10-12] MEDS: Piperacillin/Tazobactam 4.5 GM in Sodium Chloride 0.9% 100 ML IV SCH (03:19)
[2020-10-12] MEDS: HYDROmorphone 1 MG/ML Syringe IVPUSH PRN ×5 (03:19→23:01)
[2020-10-12] MEDS: Dextrose 5%-Lact Ringers w/KCl 1,000 ML IV SCH ×3 (05:10→20:54)
[2020-10-12] MEDS: Pantoprazole 40 MG Vial IVPUSH SCH ×2 (08:11→20:53)
[2020-10-12] MEDS: Tamsulosin 0.4 MG Cap.ER PO SCH ×2 (08:15→17:21)
[2020-10-12] MEDS: Lidocaine 4% 1 each Patch TOP SCH (08:16)
[2020-10-12] MEDS: Enoxaparin 40 MG/0.4 ML Syringe SUBCUT SCH (08:16)
[2020-10-12] MEDS ORDERED: Magnesium Sulfate/Water 4 GM in Premix Bag 1 BAG IV ONE (09:45)
[2020-10-12] MEDS ORDERED: Dextrose 5%-0.9% NaCl with KCl 1,000 ML IV SCH (09:45)
--- NOTE | 2020-10-12 10:03 | PCM.PN ---
- General Info Date of Service: 10/12/20 Subjective Update: Patient is passing flatus and had bowel movements x 2 overnight and this morning. He is ambulating. Oxygen is weaned off. Back pain is the main problem for him now. He reports that the lidocaine patch did not help much. He voided spontaneously x 3 Functional Status: Reports: Ambulating, Urinating - Review of Systems General: Reports: No Symptoms HEENT: Reports: No Symptoms Pulmonary: Reports: No Symptoms Cardiovascular: Reports: No Symptoms Gastrointestinal: Reports: Abdominal Pain Genitourinary: Reports: No Symptoms Musculoskeletal: Reports: Back Pain Skin: Reports: No Symptoms Neurological: Reports: No Symptoms - Patient Data Vitals - Most Recent: Last Vital Signs Temp 97.7 F 10/12/20 04:42 Pulse 60 10/12/20 04:42 Resp 13 10/12/20 05:00 BP 117/65 10/12/20 04:42 Pulse Ox 97 10/12/20 08:54 Weight - Most Recent: 96.615 kg I&O - Last 24 Hours: Intake & Output 10/11/20 10/12/20 10/12/20 22:59 06:59 14:59 Intake Total 2250 2500 Output Total 1200 350 Balance 1050 2150 Lab Results Last 24 Hours: Laboratory Results - last 24 hr 10/12/20 10/12/20 10/12/20 Range/Units 01:01 05:09 05:09 WBC 6.50 (4.23-9.07) K/mm3 RBC 3.34 L (4.63-6.08) M/mm3 Hgb 9.7 L (13.7-17.5) gm/dl Hct 31.2 L (40.1-51.0) % MCV 93.4 H (79.0-92.2) fl MCH 29.0 (25.7-32.2) pg MCHC 31.1 L (32.2-35.5) g/dl RDW Std Deviation 46.6 H (35.1-43.9) fL Plt Count 187 (163-337) K/mm3 MPV 10.2 (9.4-12.3) fl Neut % (Auto) 65.3 (34.0-67.9) % Lymph % (Auto) 19.7 L (21.8-53.1) % [place] % (Auto) 8.0 (5.3-12.2) % Eos % (Auto) 6.5 (0.8-7.0) Baso % (Auto) 0.3 (0.1-1.2) % Neut # (Auto) 4.25 (1.78-5.38) K/mm3 Lymph # (Auto) 1.28 L (1.32-3.57) K/mm3 [place] # (Auto) 0.52 (0.30-0.82) K/mm3 Eos # (Auto) 0.42 (0.04-0.54) K/mm3 Baso # (Auto) 0.02 (0.01-0.08) K/mm3 Sodium 144 (136-145) mEq/L Potassium 3.6 (3.5-5.1) mEq/L Chloride 106 (98-107) mEq/L Carbon Dioxide 30 (21-32) mEq/L Anion Gap 11.6 (5-15) BUN 5 L (7-18) mg/dL Creatinine 0.7 (0.7-1.3) mg/dL Est Cr Clr Drug Dosing 148.11 mL/min Estimated GFR (MDRD) > 60 (>60) mL/min BUN/Creatinine Ratio 7.1 L (14-18) Glucose 131 H (74-106) mg/dL POC Glucose 136 H (70-105) mg/dL Calcium 8.7 (8.5-10.1) mg/dL Phosphorus 4.4 (2.6-4.7) mg/dL Magnesium 1.6 L (1.8-2.4) mg/dl Med Orders - Current: Current Medications Cyclobenzaprine HCl (Flexeril) 10 mg PO Q8HR PRN PRN Reason: Spasms Docusate Sodium (Colace) 100 mg PO BID PRN PRN Reason: Constipation Last Admin: 10/08/20 21:04 Dose: 100 mg Documented by: Enoxaparin Sodium (Lovenox) 40 mg SUBCUT DAILY JOS[facility]UA Last Admin: 10/12/20 08:16 Dose: 40 mg Documented by: Hydromorphone HCl (Dilaudid) 1 mg IVPUSH Q6H PRN PRN Reason: Pain Potassium Chloride/Dextrose/Sod Cl (D5 Ns With 20 Meq Kcl) 1,000 mls @ 125 mls/hr IV ASDIRECTED [facility] Magnesium Sulfate 4 gm/ Premix 50 mls @ 12.5 mls/hr IV ONETIME ONE Stop: 10/12/20 13:44 Miscellaneous Information (Remove Patch) 0 ea TRDERM BEDTIME [facility] Stop: 10/12/20 23:00 Last Admin: 10/12/20 00:53 Dose: 1 ea Documented by: Ondansetron HCl (Zofran) 4 mg IVPUSH Q6H PRN PRN Reason: Nausea/Vomiting Last Admin: 10/10/20 01:12 Dose: 4 mg Documented by: Pantoprazole Sodium (Protonix Iv) 40 mg IVPUSH Q12H [facility] Last Admin: 10/12/20 08:11 Dose: 40 mg Documented by: Tamsulosin HCl (Flomax) 0.4 mg PO BIDPC [facility] Last Admin: 10/12/20 08:15 Dose: 0.4 mg Documented by: Trazodone HCl (Trazodone) 50 mg PO BEDTIME [facility] Last Admin: 10/11/20 22:17 Dose: Not Given Documented by: Discontinued Medications Acetaminophen (Tylenol) 650 mg PO Q6H [facility] Last Admin: 10/10/20 05:41 Dose: 650 mg Documented by: Bacitracin (Bacitracin Oint) Confirm Administered Dose 15 gm .ROUTE .STK-MED ONE Stop: 10/07/20 16:20 Bupivacaine HCl/Epinephrine Bitart (Marcaine 0.5%/Epinephrine 1:200,000) Confirm Administered Dose 50 ml .ROUTE .STK-MED ONE Stop: 10/07/20 07:16 Last Admin: 10/07/20 09:49 Dose: 38 ml Documented by: Dexamethasone (Dexamethasone) Confirm Administered Dose 20 mg .ROUTE .STK-MED ONE Stop: 10/07/20 07:25 Dexmedetomidine HCl (Precedex) Confirm Administered Dose 200 mcg .ROUTE .STK-MED ONE Stop: 10/07/20 09:09 Diatrizoate Meglum/Diatrizoate Sod (Gastrografin 37%) 120 ml PO ONETIME ONE Stop: 10/10/20 11:39 Last Admin: 10/11/20 14:25 Dose: Not Given Documented by: Diphenhydramine HCl (Benadryl) 25 mg IVPUSH Q6H PRN PRN Reason: pruritis Stop: 10/07/20 18:00 Ephedrine Sulfate (Ephedrine Sulfate) Confirm Administered Dose 50 mg .ROUTE .STK-MED ONE Stop: 10/07/20 10:21 Epinephrine HCl (Adrenalin) Confirm Administered Dose 1 mg .ROUTE .STK-MED ONE Stop: 10/07/20 09:11 Ertapenem (Invanz) Confirm Administered Dose 1 gm .ROUTE .STK-MED ONE Stop: 10/07/20 07:27 Fentanyl (Sublimaze) Confirm Administered Dose 250 mcg .ROUTE .STK-MED ONE Stop: 10/07/20 07:23 Fentanyl (Sublimaze) 50 mcg IVPUSH Q5M PRN PRN Reason: Pain Stop: 10/07/20 19:00 Last Admin: 10/07/20 17:15 Dose: 50 mcg Documented by: Fentanyl (Sublimaze) Confirm Administered Dose 100 mcg .ROUTE .STK-MED ONE Stop: 10/07/20 16:53 Last Admin: 10/07/20 19:00 Dose: Not Given Documented by: Furosemide (Lasix) Confirm Administered Dose 20 mg .ROUTE .STK-MED ONE Stop: 10/07/20 12:42 Furosemide (Lasix) Confirm Administered Dose 20 mg .ROUTE .STK-MED ONE Stop: 10/07/20 13:40 Gabapentin (Neurontin) 300 mg PO TID JOSHUA Last Admin: 10/09/20 20:30 Dose: 300 mg Documented by: Gabapentin (Neurontin) 300 mg PO ONETIME ONE Stop: 10/08/20 00:31 Last Admin: 10/08/20 00:38 Dose: 300 mg Documented by: Glycopyrrolate (Robinul) Confirm Administered Dose 0.6 mg .ROUTE .STK-MED ONE Stop: 10/07/20 10:21 Hydromorphone HCl (Dilaudid) 1 mg IVPUSH Q3H PRN PRN Reason: Pain Hydromorphone HCl (Dilaudid) 1 mg IVPUSH Q1H PRN PRN Reason: Abdominal Pain Stop: 10/07/20 19:00 Hydromorphone HCl (Dilaudid) 1 mg IVPUSH Q3H PRN PRN Reason: Pain (severe 7-10) Last Admin: 10/12/20 06:36 Dose: 1 mg Documented by: Lactated Ringer's (Ringers, Lactated) 1,000 mls @ 125 mls/hr IV ASDIRECTED [facility] Stop: 10/07/20 23:00 Last Infusion: 10/07/20 18:01 Dose: Infused Documented by: Lidocaine HCl (Xylocaine-Mpf 1%) Confirm Administered Dose 4 mls @ as directed .ROUTE .[facility] ONE Stop: 10/07/20 07:23 Sodium Chloride (Normal Saline) Confirm Administered Dose 10 mls @ as directed .ROUTE .[facility] ONE Stop: 10/07/20 08:28 Lidocaine HCl (Xylocaine-Mpf 1%) Confirm Administered Dose 2 mls @ as directed .ROUTE .[facility] ONE Stop: 10/07/20 08:32 Sodium Chloride (Normal Saline) Confirm Administered Dose 100 mls @ as directed .ROUTE .[facility] ONE Stop: 10/07/20 09:37 Lactated Ringer's (Ringers, Lactated) Confirm Administered Dose 2,000 mls @ as directed .ROUTE .[facility] ONE Stop: 10/07/20 12:09 Lactated Ringer's (Ringers, Lactated) Confirm Administered Dose 1,000 mls @ as directed .ROUTE .[facility] ONE Stop: 10/07/20 13:41 Lactated Ringer's (Ringers, Lactated) Confirm Administered Dose 1,000 mls @ as directed .ROUTE .[facility] ONE Stop: 10/07/20 14:20 Lactated Ringer's (Ringers, Lactated) Confirm Administered Dose 1,000 mls @ as directed .ROUTE .[facility] ONE Stop: 10/07/20 15:39 Lactated Ringer's (Ringers, Lactated) 1,000 mls @ 100 mls/hr IV ASDIRECTED [facility] Last Admin: 10/08/20 22:31 Dose: 100 mls/hr Documented by: Magnesium Sulfate (Magnesium Sulfate In Water 2 Gm/50 Ml) 2 gm in 50 mls @ 50 mls/hr IV ONETIME ONE Stop: 10/08/20 08:14 Last Admin: 10/08/20 08:29 Dose: 50 mls/hr Documented by: Potassium Chloride/Dextrose/Sod Cl (D5 1/2 Ns W/ 20 Meq/L Kcl) 1,000 mls @ 125 mls/hr IV ASDIRECTED [facility] Last Infusion: 10/10/20 10:19 Dose: 125 mls/hr Documented by: Lidocaine HCl (Xylocaine-Mpf 1%) Confirm Administered Dose 2 mls @ as directed .ROUTE .STK-MED ONE Stop: 10/09/20 08:09 Magnesium Sulfate (Magnesium Sulfate In Water 2 Gm/50 Ml) 2 gm in 50 mls @ 25 mls/hr IV ONETIME ONE Stop: 10/09/20 15:34 Last Admin: 10/09/20 13:48 Dose: 25 mls/hr Documented by: Lactated Ringer's (Ringers, Lactated) 500 mls @ 999 mls/hr IV .[facility] ONE Stop: 10/10/20 03:06 Last Admin: 10/10/20 03:40 Dose: 999 mls/hr Documented by: Lactated Ringer's (Ringers, Lactated) 1,000 mls @ 1,000 mls/hr IV .[facility] ONE Stop: 10/10/20 09:30 Last Admin: 10/10/20 09:15 Dose: 1,000 mls/hr Documented by: Magnesium Sulfate (Magnesium Sulfate In Water 2 Gm/50 Ml) 2 gm in 50 mls @ 25 mls/hr IV ONETIME ONE Stop: 10/10/20 10:59 Last Admin: 10/10/20 09:49 Dose: 25 mls/hr Documented by: Lactated Ringer's (Ringers, Lactated) 1,000 mls @ 150 mls/hr IV ASDIRECTED [facility] Last Admin: 10/11/20 01:27 Dose: 150 mls/hr Documented by: Piperacillin Sod/Tazobactam (Sod 4.5 gm/ Sodium Chloride) 100 mls @ 25 mls/hr IV Q8H [facility] Last Admin: 10/12/20 03:19 Dose: 25 mls/hr Documented by: Piperacillin Sod/Tazobactam (Sod 4.5 gm/ Sodium Chloride) 100 mls @ 200 mls/hr IV ONETIME ONE Stop: 10/10/20 12:29 Last Admin: 10/10/20 11:31 Dose: 200 mls/hr Documented by: Magnesium Sulfate (Magnesium Sulfate In Water 4 Gm/50 Ml) 50 mls @ 12.5 mls/hr IV ONETIME ONE Stop: 10/11/20 11:59 Last Admin: 10/11/20 08:11 Dose: 12.5 mls/hr Documented by: Potassium Cl/Dextrose/Lact Ringer's (D5 Lr With 20 Meq Kcl) 1,000 mls @ 150 mls/hr IV ASDIRECTED [facility] Last Admin: 10/12/20 05:10 Dose: 150 mls/hr Documented by: Iopamidol (Isovue-300 (61%)) 50 ml IVPUSH ONETIME ONE Stop: 10/10/20 11:39 Last Admin: 10/10/20 12:48 Dose: 50 ml Documented by: Iopamidol (Isovue-300 (61%)) 100 ml IVPUSH ONETIME ONE Stop: 10/10/20 11:39 Last Admin: 10/10/20 12:49 Dose: 100 ml Documented by: Ketamine HCl (Ketalar) Confirm Administered Dose 500 mg .ROUTE .STK-MED ONE Stop: 10/07/20 10:29 Lidocaine (Aspercreme 4%) 1 each TOP DAILY [facility] Last Admin: 10/12/20 08:16 Dose: 1 each Documented by: Lidocaine/Epinephrine (Xylocaine 1% With Epinephrine 1:100,000) Confirm Administered Dose 20 ml .ROUTE .STK-MED ONE Stop: 10/07/20 07:16 Lidocaine/Sodium Bicarbonate (Buffered Lidocaine 1% In Ns 8.4%) 0.25 ml IDERM ONETIME PRN PRN Reason: Prior to IV Start Stop: 10/07/20 18:00 Last Admin: 10/07/20 07:20 Dose: 0.25 ml Documented by: Midazolam HCl (Versed 1 Mg/Ml) Confirm Administered Dose 2 mg .ROUTE .STK-MED ONE Stop: 10/07/20 07:23 Morphine Sulfate (Duramorph Pf) Confirm Administered Dose 10 mg .ROUTE .STK-MED ONE Stop: 10/07/20 08:11 Morphine Sulfate (Duramorph Pf) Confirm Administered Dose 10 mg .ROUTE .STK-MED ONE Stop: 10/07/20 09:09 Neostigmine Methylsulfate (Neostigmine Methylsulfate) Confirm Administered Dose 5 mg .ROUTE .STK-MED ONE Stop: 10/07/20 10:21 Ondansetron HCl (Zofran) Confirm Administered Dose 4 mg .ROUTE .STK-MED ONE Stop: 10/07/20 07:25 Ondansetron HCl (Zofran) 4 mg IVPUSH ONETIME PRN PRN Reason: Nausea/Vomiting Stop: 10/07/20 18:00 Oxycodone HCl (Oxycodone) 5 mg PO Q6H PRN PRN Reason: Pain (moderate 4-6) Last Admin: 10/10/20 00:32 Dose: 5 mg Documented by: Propofol (Diprivan 20 Ml) Confirm Administered Dose 200 mg .ROUTE .STK-MED ONE Stop: 10/07/20 07:23 Rocuronium [place] (Zemuron) Confirm Administered Dose 50 mg .ROUTE .STK-MED ONE Stop: 10/07/20 07:26 Rocuronium [place] (Zemuron) Confirm Administered Dose 50 mg .ROUTE .STK-MED ONE Stop: 10/07/20 09:48 Rocuronium [place] (Zemuron) Confirm Administered Dose 50 mg .ROUTE .STK-MED ONE Stop: 10/07/20 13:10 Sodium Chloride (Saline Flush) 10 ml FLUSH ASDIRECTED PRN PRN Reason: Keep Vein Open Stop: 10/07/20 18:00 Sodium Chloride (Saline Flush) 10 ml FLUSH ONETIME PRN PRN Reason: IV FLUSH Last Admin: 10/10/20 12:49 Dose: 10 ml Documented by: - Exam Quality Assessment: DVT Prophylaxis General: Alert, Oriented, Cooperative Lungs: Crackles (lower lungs) Cardiovascular: Regular Rate, Regular Rhythm, No Murmurs GI/Abdominal Exam: Soft, Distended (moderately), Tender (appropriately), Other (incisions are C/D/I) Sepsis Event Note - Evaluation Sepsis Screening Result: No Definite Risk - Focused Exam Vital Signs: Vital Signs Temp Pulse Resp BP Pulse Ox Pulse Ox Pulse Ox 10/12/20 08:54 97 10/12/20 06:00 99 10/12/20 05:59 99 10/12/20 05:00 13 10/12/20 04:42 97.7 F 60 18 117/65 96 10/12/20 04:00 14 10/12/20 03:00 11 L 10/12/20 02:01 14 10/12/20 01:00 13 10/12/20 00:09 69 95 10/12/20 00:00 14 10/11/20 23:57 98.1 F 71 20 121/94 H 90 L 10/11/20 23:10 65 16 94 L 10/11/20 23:00 18 10/11/20 22:00 16 - Problem List Review Problem List Initiated/Reviewed/Updated: No - My Orders Last 24 Hours: My Active Orders 10/11/20 09:00 Pantoprazole [ProTONIX IV] 40 mg IVPUSH Q12H Tamsulosin [Flomax] 0.4 mg PO BIDPC 10/11/20 11:28 Heat Therapy [OM.PC] Routine 10/11/20 21:00 Remove Patch 0 ea TRDERM BEDTIME 10/12/20 00:00 Blood Glucose Check, Bedside [RC] Q6H 10/12/20 09:44 Cyclobenzaprine [Flexeril] 10 mg PO Q8HR PRN 10/12/20 09:45 Dextrose 5%-0.9% NaCl with KCl [D5 NS with 20 mEq KCl] 1,000 ml IV ASDIRECTED Magnesium Sulfate/Water [Magnesium Sulfate in Water 4 GM/50 ML] 4 gm Premix Bag 1 bag IV ONETIME 10/12/20 09:47 HYDROmorphone [Dilaudid] 1 mg IVPUSH Q6H PRN - Assessment Assessment:: POD5 extended right hemicolectomy. Passing flatus and had loose stools. NGT output has dropped down significantly to 1100/24 hrs and mostly gastric contents - Plan Plan:: - Will take NGT out today. I discussed with him that is ileus worsens we may need to put it back in. He is willing to continue with plan to remove it - Start ice chips and sips of water today. It no nausea or vomiting, we will advance to clears for dinner around 4 PM - Able to void spontaneously. No need for interventions - Will make dilaudid Q6H PRN now, to help minimize narcotic ileus - Will add Flexeril for back pain/spasms - If tolerating diet, we will add PO pills tonight - Replete Magnesium - IVF to 125 mL/hr - We will stop antibiotics today. No signs of intraabdominal infection at this time. Dispo: pending clinical improvement
[2020-10-12] MEDS: Cyclobenzaprine 10 MG Tab PO PRN (15:53)
[2020-10-12] MEDS: Acetaminophen 325 MG Tab PO SCH (20:53)
[2020-10-12] MEDS: Gabapentin 300 MG Cap PO SCH (20:53)
[2020-10-12] MEDS: traZODone 50 MG Tab PO SCH (22:08)
[2020-10-13] MEDS: Acetaminophen 325 MG Tab PO SCH ×4 (01:48→20:16)
[2020-10-13] MEDS: Dextrose 5%-Lact Ringers w/KCl 1,000 ML IV SCH (05:01)
[2020-10-13] MEDS: HYDROmorphone 1 MG/ML Syringe IVPUSH PRN (05:01)
[2020-10-13] MEDS: Gabapentin 300 MG Cap PO SCH ×2 (08:31→20:17)
[2020-10-13] MEDS: Tamsulosin 0.4 MG Cap.ER PO SCH ×2 (08:33→17:21)
[2020-10-13] MEDS: Enoxaparin 40 MG/0.4 ML Syringe SUBCUT SCH (08:33)
[2020-10-13] MEDS: Pantoprazole 40 MG Vial IVPUSH SCH ×2 (08:34→20:17)
[2020-10-13] MEDS ORDERED: Docusate Sodium 100 MG Cap PO PRN (09:58)
[2020-10-13] MEDS ORDERED: Magnesium Sulfate/Water 2 GM/50 ML BAG IV ONE (10:03)
[2020-10-13] MEDS ORDERED: HYDROmorphone 0.5 MG/0.5 ML Syringe IVPUSH PRN (10:14)
[2020-10-13] MEDS ORDERED: Dextrose 5%-Lact Ringers w/KCl 1,000 ML IV SCH (10:15)
--- NOTE | 2020-10-13 10:21 | PCM.PN ---
- General Info Date of Service: 10/13/20 Subjective Update: Tolerated clears. continued to pass flatus. No nausea or vomiting. ambulating. Pain is controlled adequately Functional Status: Reports: Pain Controlled, Tolerating Diet (clears), Ambulating, Urinating - Review of Systems General: Reports: No Symptoms HEENT: Reports: No Symptoms Pulmonary: Reports: No Symptoms Cardiovascular: Reports: No Symptoms Gastrointestinal: Reports: Abdominal Pain, Flatus (passing) Genitourinary: Reports: No Symptoms Musculoskeletal: Reports: Back Pain Skin: Reports: No Symptoms Neurological: Reports: No Symptoms - Patient Data Vitals - Most Recent: Last Vital Signs Temp 98.1 F 10/13/20 07:51 Pulse 60 10/13/20 07:51 Resp 14 10/13/20 09:00 BP 119/66 10/13/20 07:51 Pulse Ox 91 L 10/13/20 07:51 Weight - Most Recent: 97.704 kg I&O - Last 24 Hours: Intake & Output 10/12/20 10/13/20 10/13/20 22:59 06:59 14:59 Intake Total 2645 600 Output Total 750 750 Balance 1895 -150 Lab Results Last 24 Hours: Laboratory Results - last 24 hr 10/12/20 10/12/20 10/13/20 Range/Units 12:27 18:40 05:11 Sodium 145 (136-145) mEq/L Potassium 3.6 (3.5-5.1) mEq/L Chloride 108 H (98-107) mEq/L Carbon Dioxide 29 (21-32) mEq/L Anion Gap 11.6 (5-15) BUN 4 L (7-18) mg/dL Creatinine 0.7 (0.7-1.3) mg/dL Est Cr Clr Drug Dosing 148.11 mL/min Estimated GFR (MDRD) > 60 (>60) mL/min BUN/Creatinine Ratio 5.7 L (14-18) Glucose 100 (74-106) mg/dL POC Glucose 129 H 140 H (70-105) mg/dL Calcium 8.6 (8.5-10.1) mg/dL Phosphorus 4.6 (2.6-4.7) mg/dL Magnesium 1.7 L (1.8-2.4) mg/dl Med Orders - Current: Current Medications Acetaminophen (Tylenol) 650 mg PO Q6H [facility] Last Admin: 10/13/20 08:31 Dose: 650 mg Documented by: Cyclobenzaprine HCl (Flexeril) 10 mg PO Q8HR PRN PRN Reason: Spasms Last Admin: 10/12/20 15:53 Dose: 10 mg Documented by: Docusate Sodium (Colace) 100 mg PO BID PRN PRN Reason: Constipation Last Admin: 10/08/20 21:04 Dose: 100 mg Documented by: Enoxaparin Sodium (Lovenox) 40 mg SUBCUT DAILY [facility] Last Admin: 10/13/20 08:33 Dose: 40 mg Documented by: Gabapentin (Neurontin) 300 mg PO BID [facility] Last Admin: 10/13/20 08:31 Dose: 300 mg Documented by: Hydromorphone HCl (Dilaudid) 0.5 mg IVPUSH Q6H PRN PRN Reason: Pain Magnesium Sulfate (Magnesium Sulfate In Water 2 Gm/50 Ml) 2 gm in 50 mls @ 25 mls/hr IV ONETIME ONE Stop: 10/13/20 12:02 Potassium Cl/Dextrose/Lact Ringer's (D5 Lr With 20 Meq Kcl) 1,000 mls @ 50 mls/hr IV ASDIRECTED [facility] Ondansetron HCl (Zofran) 4 mg IVPUSH Q6H PRN PRN Reason: Nausea/Vomiting Last Admin: 10/10/20 01:12 Dose: 4 mg Documented by: Oxycodone HCl (Oxycodone) 5 mg PO Q6H PRN PRN Reason: Abdominal Pain Pantoprazole Sodium (Protonix Iv) 40 mg IVPUSH Q12H [facility] Last Admin: 10/13/20 08:34 Dose: 40 mg Documented by: Tamsulosin HCl (Flomax) 0.4 mg PO BIDPC [facility] Last Admin: 10/13/20 08:33 Dose: 0.4 mg Documented by: Trazodone HCl (Trazodone) 50 mg PO BEDTIME [facility] Last Admin: 10/12/20 22:08 Dose: 50 mg Documented by: Discontinued Medications Acetaminophen (Tylenol) 650 mg PO Q6H [facility] Last Admin: 10/10/20 05:41 Dose: 650 mg Documented by: Bacitracin (Bacitracin Oint) Confirm Administered Dose 15 gm .ROUTE .STK-MED ONE Stop: 10/07/20 16:20 Bupivacaine HCl/Epinephrine Bitart (Marcaine 0.5%/Epinephrine 1:200,000) Confirm Administered Dose 50 ml .ROUTE .STK-MED ONE Stop: 10/07/20 07:16 Last Admin: 10/07/20 09:49 Dose: 38 ml Documented by: Dexamethasone (Dexamethasone) Confirm Administered Dose 20 mg .ROUTE .STK-MED ONE Stop: 10/07/20 07:25 Dexmedetomidine HCl (Precedex) Confirm Administered Dose 200 mcg .ROUTE .STK-MED ONE Stop: 10/07/20 09:09 Diatrizoate Meglum/Diatrizoate Sod (Gastrografin 37%) 120 ml PO ONETIME ONE Stop: 10/10/20 11:39 Last Admin: 10/11/20 14:25 Dose: Not Given Documented by: Diphenhydramine HCl (Benadryl) 25 mg IVPUSH Q6H PRN PRN Reason: pruritis Stop: 10/07/20 18:00 Docusate Sodium (Colace) 100 mg PO BID PRN PRN Reason: Constipation Ephedrine Sulfate (Ephedrine Sulfate) Confirm Administered Dose 50 mg .ROUTE .STK-MED ONE Stop: 10/07/20 10:21 Epinephrine HCl (Adrenalin) Confirm Administered Dose 1 mg .ROUTE .STK-MED ONE Stop: 10/07/20 09:11 Ertapenem (Invanz) Confirm Administered Dose 1 gm .ROUTE .STK-MED ONE Stop: 10/07/20 07:27 Fentanyl (Sublimaze) Confirm Administered Dose 250 mcg .ROUTE .STK-MED ONE Stop: 10/07/20 07:23 Fentanyl (Sublimaze) 50 mcg IVPUSH Q5M PRN PRN Reason: Pain Stop: 10/07/20 19:00 Last Admin: 10/07/20 17:15 Dose: 50 mcg Documented by: Fentanyl (Sublimaze) Confirm Administered Dose 100 mcg .ROUTE .STK-MED ONE Stop: 10/07/20 16:53 Last Admin: 10/07/20 19:00 Dose: Not Given Documented by: Furosemide (Lasix) Confirm Administered Dose 20 mg .ROUTE .STK-MED ONE Stop: 10/07/20 12:42 Furosemide (Lasix) Confirm Administered Dose 20 mg .ROUTE .STK-MED ONE Stop: 10/07/20 13:40 Gabapentin (Neurontin) 300 mg PO TID [facility] Last Admin: 10/09/20 20:30 Dose: 300 mg Documented by: Gabapentin (Neurontin) 300 mg PO ONETIME ONE Stop: 10/08/20 00:31 Last Admin: 10/08/20 00:38 Dose: 300 mg Documented by: Glycopyrrolate (Robinul) Confirm Administered Dose 0.6 mg .ROUTE .STK-MED ONE Stop: 10/07/20 10:21 Hydromorphone HCl (Dilaudid) 1 mg IVPUSH Q3H PRN PRN Reason: Pain Hydromorphone HCl (Dilaudid) 1 mg IVPUSH Q1H PRN PRN Reason: Abdominal Pain Stop: 10/07/20 19:00 Hydromorphone HCl (Dilaudid) 1 mg IVPUSH Q3H PRN PRN Reason: Pain (severe 7-10) Last Admin: 10/12/20 06:36 Dose: 1 mg Documented by: Hydromorphone HCl (Dilaudid) 1 mg IVPUSH Q6H PRN PRN Reason: Pain Last Admin: 10/13/20 05:01 Dose: 1 mg Documented by: Lactated Ringer's (Ringers, Lactated) 1,000 mls @ 125 mls/hr IV ASDIRECTED [facility] Stop: 10/07/20 23:00 Last Infusion: 10/07/20 18:01 Dose: Infused Documented by: Lidocaine HCl (Xylocaine-Mpf 1%) Confirm Administered Dose 4 mls @ as directed .ROUTE .STK-MED ONE Stop: 10/07/20 07:23 Sodium Chloride (Normal Saline) Confirm Administered Dose 10 mls @ as directed .ROUTE .STK-MED ONE Stop: 10/07/20 08:28 Lidocaine HCl (Xylocaine-Mpf 1%) Confirm Administered Dose 2 mls @ as directed .ROUTE .STK-MED ONE Stop: 10/07/20 08:32 Sodium Chloride (Normal Saline) Confirm Administered Dose 100 mls @ as directed .ROUTE .STK-MED ONE Stop: 10/07/20 09:37 Lactated Ringer's (Ringers, Lactated) Confirm Administered Dose 2,000 mls @ as directed .ROUTE .STK-MED ONE Stop: 10/07/20 12:09 Lactated Ringer's (Ringers, Lactated) Confirm Administered Dose 1,000 mls @ as directed .ROUTE .[facility] ONE Stop: 10/07/20 13:41 Lactated Ringer's (Ringers, Lactated) Confirm Administered Dose 1,000 mls @ as directed .ROUTE .[facility] ONE Stop: 10/07/20 14:20 Lactated Ringer's (Ringers, Lactated) Confirm Administered Dose 1,000 mls @ as directed .ROUTE .[facility] ONE Stop: 10/07/20 15:39 Lactated Ringer's (Ringers, Lactated) 1,000 mls @ 100 mls/hr IV ASDIRECTED [facility] Last Admin: 10/08/20 22:31 Dose: 100 mls/hr Documented by: Magnesium Sulfate (Magnesium Sulfate In Water 2 Gm/50 Ml) 2 gm in 50 mls @ 50 mls/hr IV ONETIME ONE Stop: 10/08/20 08:14 Last Admin: 10/08/20 08:29 Dose: 50 mls/hr Documented by: Potassium Chloride/Dextrose/Sod Cl (D5 1/2 Ns W/ 20 Meq/L Kcl) 1,000 mls @ 125 mls/hr IV ASDIRECTED [facility] Last Infusion: 10/10/20 10:19 Dose: 125 mls/hr Documented by: Lidocaine HCl (Xylocaine-Mpf 1%) Confirm Administered Dose 2 mls @ as directed .ROUTE .[facility] ONE Stop: 10/09/20 08:09 Magnesium Sulfate (Magnesium Sulfate In Water 2 Gm/50 Ml) 2 gm in 50 mls @ 25 mls/hr IV ONETIME ONE Stop: 10/09/20 15:34 Last Admin: 10/09/20 13:48 Dose: 25 mls/hr Documented by: Lactated Ringer's (Ringers, Lactated) 500 mls @ 999 mls/hr IV .[facility] ONE Stop: 10/10/20 03:06 Last Admin: 10/10/20 03:40 Dose: 999 mls/hr Documented by: Lactated Ringer's (Ringers, Lactated) 1,000 mls @ 1,000 mls/hr IV .[facility]OLUS ONE Stop: 10/10/20 09:30 Last Admin: 10/10/20 09:15 Dose: 1,000 mls/hr Documented by: Magnesium Sulfate (Magnesium Sulfate In Water 2 Gm/50 Ml) 2 gm in 50 mls @ 25 mls/hr IV ONETIME ONE Stop: 10/10/20 10:59 Last Admin: 10/10/20 09:49 Dose: 25 mls/hr Documented by: Lactated Ringer's (Ringers, Lactated) 1,000 mls [facility] Admin: 10/11/20 01:27 Dose: 150 mls/hr Documented by: Piperacillin Sod/Tazobactam (Sod 4.5 gm/ Sodium Chloride) 100 mls @ 25 mls/hr IV Q8H [facility] Last Admin: 10/12/20 03:19 Dose: 25 mls/hr Documented by: Piperacillin Sod/Tazobactam (Sod 4.5 gm/ Sodium Chloride) 100 mls @ 200 mls/hr IV ONETIME ONE Stop: 10/10/20 12:29 Last Admin: 10/10/20 11:31 Dose: 200 mls/hr Documented by: Magnesium Sulfate (Magnesium Sulfate In Water 4 Gm/50 Ml) 50 mls @ 12.5 mls/hr IV ONETIME ONE Stop: 10/11/20 11:59 Last Admin: 10/11/20 08:11 Dose: 12.5 mls/hr Documented by: Potassium Cl/Dextrose/Lact Ringer's (D5 Lr With 20 Meq Kcl) 1,000 mls @ 150 [facility] Last Admin: 10/12/20 05:10 Dose: 150 mls/hr Documented by: Magnesium Sulfate 4 gm/ Premix 50 mls @ 12.5 mls/hr IV ONETIME ONE Stop: 10/12/20 13:44 Last Admin: 10/12/20 09:54 Dose: 12.5 mls/hr Documented by: Potassium Cl/Dextrose/Lact Ringer's (D5 Lr With 20 Meq Kcl) 1,000 mls @ 125 [facility]ls[facility] Last Admin: 10/13/20 05:01 Dose: 125 mls/hr Documented by: Iopamidol (Isovue-300 (61%)) 50 ml IVPUSH ONETIME ONE Stop: 10/10/20 11:39 Last Admin: 10/10/20 12:48 Dose: 50 ml Documented by: Iopamidol (Isovue-300 (61%)) 100 ml IVPUSH ONETIME ONE Stop: 10/10/20 11:39 Last Admin: 10/10/20 12:49 Dose: 100 ml Documented by: Ketamine HCl (Ketalar) Confirm Administered Dose 500 mg .ROUTE .STK-MED ONE Stop: 10/07/20 10:29 Lidocaine (Aspercreme 4%) 1 each TOP DAILY [facility] Last Admin: 10/12/20 08:16 Dose: 1 each Documented by: Lidocaine/Epinephrine (Xylocaine 1% With Epinephrine 1:100,000) Confirm Administered Dose 20 ml .ROUTE .STK-MED ONE Stop: 10/07/20 07:16 Lidocaine/Sodium Bicarbonate (Buffered Lidocaine 1% In Ns 8.4%) 0.25 ml IDERM ONETIME PRN PRN Reason: Prior to IV Start Stop: 10/07/20 18:00 Last Admin: 10/07/20 07:20 Dose: 0.25 ml Documented by: Midazolam HCl (Versed 1 Mg/Ml) Confirm Administered Dose 2 mg .ROUTE .STK-MED ONE Stop: 10/07/20 07:23 Miscellaneous Information (Remove Patch) 0 ea TRDERM BEDTIME [facility] Stop: 10/12/20 23:00 Last Admin: 10/12/20 20:56 Dose: 1 ea Documented by: Morphine Sulfate (Duramorph Pf) Confirm Administered Dose 10 mg .ROUTE .STK-MED ONE Stop: 10/07/20 08:11 Morphine Sulfate (Duramorph Pf) Confirm Administered Dose 10 mg .ROUTE .STK-MED ONE Stop: 10/07/20 09:09 Neostigmine Methylsulfate (Neostigmine Methylsulfate) Confirm Administered Dose 5 mg .ROUTE .STK-MED ONE Stop: 10/07/20 10:21 Ondansetron HCl (Zofran) Confirm Administered Dose 4 mg .ROUTE .STK-MED ONE Stop: 10/07/20 07:25 Ondansetron HCl (Zofran) 4 mg IVPUSH ONETIME PRN PRN Reason: Nausea/Vomiting Stop: 10/07/20 18:00 Oxycodone HCl (Oxycodone) 5 mg PO Q6H PRN PRN Reason: Pain (moderate 4-6) Last Admin: 10/10/20 00:32 Dose: 5 mg Documented by: Propofol (Diprivan 20 Ml) Confirm Administered Dose 200 mg .ROUTE .STK-MED ONE Stop: 10/07/20 07:23 Rocuronium [place] (Zemuron) Confirm Administered Dose 50 mg .ROUTE .STK-MED ONE Stop: 10/07/20 07:26 Rocuronium [place] (Zemuron) Confirm Administered Dose 50 mg .ROUTE .STK-MED ONE Stop: 10/07/20 09:48 Rocuronium [place] (Zemuron) Confirm Administered Dose 50 mg .ROUTE .STK-MED ONE Stop: 10/07/20 13:10 Sodium Chloride (Saline Flush) 10 ml FLUSH ASDIRECTED PRN PRN Reason: Keep Vein Open Stop: 10/07/20 18:00 Sodium Chloride (Saline Flush) 10 ml FLUSH ONETIME PRN PRN Reason: IV FLUSH Last Admin: 10/10/20 12:49 Dose: 10 ml Documented by: - Exam Quality Assessment: DVT Prophylaxis General: Alert, Oriented, Cooperative Lungs: Normal Respiratory Effort, Crackles (lower lngs) Cardiovascular: Regular Rate, Regular Rhythm, No Murmurs GI/Abdominal Exam: Soft, Distended (still moderately distended), Tender, Other (incisions c/d/i) Extremities: Normal Inspection, No Pedal Edema Sepsis Event Note - Evaluation Sepsis Screening Result: No Definite Risk - Focused Exam Vital Signs: Vital Signs Temp Pulse Resp BP Pulse Ox 10/13/20 09:00 14 10/13/20 08:00 27 H 10/13/20 07:51 98.1 F 60 16 119/66 91 L 10/13/20 07:00 14 10/13/20 06:00 14 10/13/20 05:00 22 H 10/13/20 04:58 71 19 117/61 92 L 10/13/20 04:55 97.5 F 66 20 100/59 L 90 L 10/13/20 04:00 16 10/13/20 03:00 17 10/13/20 02:00 15 10/13/20 01:01 12 10/13/20 00:10 98.2 F 61 16 109/54 L 91 L 10/13/20 00:00 12 10/12/20 23:00 24 H - Problem List Review Problem List Initiated/Reviewed/Updated: No - My Orders Last 24 Hours: My Active Orders 10/12/20 09:44 Cyclobenzaprine [Flexeril] 10 mg PO Q8HR PRN 10/12/20 Dinner Clear Liquid Diet [DIET] 10/12/20 20:38 oxyCODONE 5 mg PO Q6H PRN 10/12/20 20:45 Acetaminophen [TylenoL] 650 mg PO Q6H 10/12/20 21:00 Gabapentin [Neurontin] 300 mg PO BID 10/13/20 10:03 Magnesium Sulfate/Water [Magnesium Sulfate in Water 2 GM/50 ML] 2 gm in 50 ml IV ONETIME 10/13/20 10:14 HYDROmorphone [Dilaudid] 0.5 mg IVPUSH Q6H PRN 10/13/20 10:15 Dextrose 5%-Lact Ringers w/KCl [D5 LR with 20 mEq KCl] 1,000 ml IV ASDIRECTED 10/13/20 Lunch Full Liquid Diet [DIET] 10/14/20 05:11 BASIC METABOLIC PANEL,BMP [CHEM] AM CBC WITH AUTO DIFF [HEME] AM MAGNESIUM [CHEM] AM PHOSPHORUS [CHEM] AM 10/15/20 05:11 BASIC METABOLIC PANEL,BMP [CHEM] AM CBC WITH AUTO DIFF [HEME] AM MAGNESIUM [CHEM] AM PHOSPHORUS [CHEM] AM 10/16/20 05:11 BASIC METABOLIC PANEL,BMP [CHEM] AM CBC WITH AUTO DIFF [HEME] AM MAGNESIUM [CHEM] AM PHOSPHORUS [CHEM] AM 10/17/20 05:11 BASIC METABOLIC PANEL,BMP [CHEM] AM MAGNESIUM [CHEM] AM PHOSPHORUS [CHEM] AM - Assessment Assessment:: POD6 extended right hemicolectomy. Passing flatus. Tolerating clears. continues to pass flatus. Abdomen is still moderately distended - Plan Plan:: - Will advance to FLD today. I discussed with the patient to take it slow with PO intake - IVF to 50 cc/hr - will add colace and Miralax - Continue ambulation and incentive spirometry - Continue current pain management with multimodal therapy - Will replete Magnesium Dispo: pending clinical improvement
[2020-10-13] MEDS: Polyethylene Glycol 3350 Powder 17 GM Packet PO SCH (10:33)
[2020-10-13] MEDS: oxyCODONE 5 MG Tab PO PRN ×2 (10:42→17:21)
[2020-10-13] MEDS: Cyclobenzaprine 10 MG Tab PO PRN ×2 (13:38→22:39)
[2020-10-13] MEDS: traZODone 50 MG Tab PO SCH (20:16)
[2020-10-14] MEDS: oxyCODONE 5 MG Tab PO PRN ×2 (00:03→06:19)
[2020-10-14] MEDS: Acetaminophen 325 MG Tab PO SCH ×4 (05:34→21:22)
[2020-10-14] MEDS: Enoxaparin 40 MG/0.4 ML Syringe SUBCUT SCH (08:18)
[2020-10-14] MEDS: Tamsulosin 0.4 MG Cap.ER PO SCH ×2 (08:19→17:51)
[2020-10-14] MEDS: Gabapentin 300 MG Cap PO SCH ×2 (08:19→21:22)
[2020-10-14] MEDS: Pantoprazole 40 MG Vial IVPUSH SCH ×2 (08:19→21:22)
[2020-10-14] MEDS ORDERED: Magnesium Sulfate/Water 4 GM in Premix Bag 1 BAG IV ONE (08:24)
[2020-10-14] MEDS: Polyethylene Glycol 3350 Powder 17 GM Packet PO SCH (10:00)
--- NOTE | 2020-10-14 13:50 | PCM.PN ---
- General Info Date of Service: 10/14/20 Subjective Update: Patient tolerated full liquid diet since yesterday. He denies any nausea or vomiting. He continues to pass flatus and had 2 BMs. he continues to ambulate and voiding spontaneously. Pain is controlled. Functional Status: Reports: Pain Controlled, Tolerating Diet, Ambulating, Urinating - Review of Systems General: Reports: No Symptoms HEENT: Reports: No Symptoms Pulmonary: Reports: No Symptoms Cardiovascular: Reports: No Symptoms Gastrointestinal: Reports: Abdominal Pain (post op) Musculoskeletal: Reports: No Symptoms Skin: Reports: No Symptoms Neurological: Reports: No Symptoms Psychiatric: Reports: No Symptoms - Patient Data Vitals - Most Recent: Last Vital Signs Temp 98.1 F 10/14/20 08:30 Pulse 64 10/14/20 08:30 Resp 18 10/14/20 08:30 BP 125/66 10/14/20 08:30 Pulse Ox 94 L 10/14/20 08:30 Weight - Most Recent: 98.747 kg I&O - Last 24 Hours: Intake & Output 10/13/20 10/14/20 10/14/20 22:59 06:59 14:59 Intake Total 2370 950 180 Output Total 2150 900 Balance 220 50 180 Lab Results Last 24 Hours: Laboratory Results - last 24 hr 10/14/20 10/14/20 Range/Units 05:44 05:44 WBC 6.32 (4.23-9.07) K/mm3 RBC 3.59 L (4.63-6.08) M/mm3 Hgb 10.3 L (13.7-17.5) gm/dl Hct 33.4 L (40.1-51.0) % MCV 93.0 H (79.0-92.2) fl MCH 28.7 (25.7-32.2) pg MCHC 30.8 L (32.2-35.5) g/dl RDW Std Deviation 46.7 H (35.1-43.9) fL Plt Count 199 (163-337) K/mm3 MPV 10.4 (9.4-12.3) fl Neut % (Auto) 60.7 (34.0-67.9) % Lymph % (Auto) 25.3 (21.8-53.1) % Mccone % (Auto) 7.0 (5.3-12.2) % Eos % (Auto) 6.3 (0.8-7.0) Baso % (Auto) 0.5 (0.1-1.2) % Neut # (Auto) 3.84 (1.78-5.38) K/mm3 Lymph # (Auto) 1.60 (1.32-3.57) K/mm3 Mccone # (Auto) 0.44 (0.30-0.82) K/mm3 Eos # (Auto) 0.40 (0.04-0.54) K/mm3 Baso # (Auto) 0.03 (0.01-0.08) K/mm3 Sodium 147 H (136-145) mEq/L Potassium 3.9 (3.5-5.1) mEq/L Chloride 108 H (98-107) mEq/L Carbon Dioxide 29 (21-32) mEq/L Anion Gap 13.9 (5-15) BUN 3 L (7-18) mg/dL Creatinine 0.8 (0.7-1.3) mg/dL Est Cr Clr Drug Dosing 129.60 mL/min Estimated GFR (MDRD) > 60 (>60) mL/min BUN/Creatinine Ratio 3.8 L (14-18) Glucose 92 (74-106) mg/dL Calcium 8.9 (8.5-10.1) mg/dL Phosphorus 4.9 H (2.6-4.7) mg/dL Magnesium 1.6 L (1.8-2.4) mg/dl Med Orders - Current: Current Medications Acetaminophen (Tylenol) 650 mg PO Q6H [facility] Last Admin: 10/14/20 08:18 Dose: 650 mg Documented by: Cyclobenzaprine HCl (Flexeril) 10 mg PO Q8HR PRN PRN Reason: Spasms Last Admin: 10/13/20 22:39 Dose: 10 mg Documented by: Docusate Sodium (Colace) 100 mg PO BID PRN PRN Reason: Constipation Last Admin: 10/08/20 21:04 Dose: 100 mg Documented by: Enoxaparin Sodium (Lovenox) 40 mg SUBCUT DAILY [facility] Last Admin: 10/14/20 08:18 Dose: 40 mg Documented by: Gabapentin (Neurontin) 300 mg PO BID [facility] Last Admin: 10/14/20 08:19 Dose: 300 mg Documented by: Ondansetron HCl (Zofran) 4 mg IVPUSH Q6H PRN PRN Reason: Nausea/Vomiting Last Admin: 10/10/20 01:12 Dose: 4 mg Documented by: Oxycodone HCl (Oxycodone) 5 mg PO Q6H PRN PRN Reason: Abdominal Pain Last Admin: 10/14/20 06:19 Dose: 5 mg Documented by: Pantoprazole Sodium (Protonix Iv) 40 mg IVPUSH Q12H [facility] Last Admin: 10/14/20 08:19 Dose: 40 mg Documented by: Polyethylene Glycol (Miralax) 17 gm PO DAILY [facility] Last Admin: 10/14/20 10:00 Dose: 17 gm Documented by: Tamsulosin HCl (Flomax) 0.4 mg PO BIDPC [facility] Last Admin: 10/14/20 08:19 Dose: 0.4 mg Documented by: Trazodone HCl (Trazodone) 50 mg PO BEDTIME [facility] Last Admin: 10/13/20 20:16 Dose: 50 mg Documented by: Discontinued Medications Acetaminophen (Tylenol) 650 mg PO Q6H [facility] Last Admin: 10/10/20 05:41 Dose: 650 mg Documented by: Bacitracin (Bacitracin Oint) Confirm Administered Dose 15 gm .ROUTE .STK-MED ONE Stop: 10/07/20 16:20 Bupivacaine HCl/Epinephrine Bitart (Marcaine 0.5%/Epinephrine 1:200,000) Confirm Administered Dose 50 ml .ROUTE .STK-MED ONE Stop: 10/07/20 07:16 Last Admin: 10/07/20 09:49 Dose: 38 ml Documented by: Dexamethasone (Dexamethasone) Confirm Administered Dose 20 mg .ROUTE .STK-MED ONE Stop: 10/07/20 07:25 Dexmedetomidine HCl (Precedex) Confirm Administered Dose 200 mcg .ROUTE .STK-MED ONE Stop: 10/07/20 09:09 Diatrizoate Meglum/Diatrizoate Sod (Gastrografin 37%) 120 ml PO ONETIME ONE Stop: 10/10/20 11:39 Last Admin: 10/11/20 14:25 Dose: Not Given Documented by: Diphenhydramine HCl (Benadryl) 25 mg IVPUSH Q6H PRN PRN Reason: pruritis Stop: 10/07/20 18:00 Docusate Sodium (Colace) 100 mg PO BID PRN PRN Reason: Constipation Ephedrine Sulfate (Ephedrine Sulfate) Confirm Administered Dose 50 mg .ROUTE .STK-MED ONE Stop: 10/07/20 10:21 Epinephrine HCl (Adrenalin) Confirm Administered Dose 1 mg .ROUTE .STK-MED ONE Stop: 10/07/20 09:11 Ertapenem (Invanz) Confirm Administered Dose 1 gm .ROUTE .STK-MED ONE Stop: 10/07/20 07:27 Fentanyl (Sublimaze) Confirm Administered Dose 250 mcg .ROUTE .STK-MED ONE Stop: 10/07/20 07:23 Fentanyl (Sublimaze) 50 mcg IVPUSH Q5M PRN PRN Reason: Pain Stop: 10/07/20 19:00 Last Admin: 10/07/20 17:15 Dose: 50 mcg Documented by: Fentanyl (Sublimaze) Confirm Administered Dose 100 mcg .ROUTE .STK-MED ONE Stop: 10/07/20 16:53 Last Admin: 10/07/20 19:00 Dose: Not Given Documented by: Furosemide (Lasix) Confirm Administered Dose 20 mg .ROUTE .STK-MED ONE Stop: 10/07/20 12:42 Furosemide (Lasix) Confirm Administered Dose 20 mg .ROUTE .STK-MED ONE Stop: 10/07/20 13:40 Gabapentin (Neurontin) 300 mg PO TID JOSHUA Last Admin: 10/09/20 20:30 Dose: 300 mg Documented by: Gabapentin (Neurontin) 300 mg PO ONETIME ONE Stop: 10/08/20 00:31 Last Admin: 10/08/20 00:38 Dose: 300 mg Documented by: Glycopyrrolate (Robinul) Confirm Administered Dose 0.6 mg .ROUTE .STK-MED ONE Stop: 10/07/20 10:21 Hydromorphone HCl (Dilaudid) 1 mg IVPUSH Q3H PRN PRN Reason: Pain Hydromorphone HCl (Dilaudid) 1 mg IVPUSH Q1H PRN PRN Reason: Abdominal Pain Stop: 10/07/20 19:00 Hydromorphone HCl (Dilaudid) 1 mg IVPUSH Q3H PRN PRN Reason: Pain (severe 7-10) Last Admin: 10/12/20 06:36 Dose: 1 mg Documented by: Hydromorphone HCl (Dilaudid) 1 mg IVPUSH Q6H PRN PRN Reason: Pain Last Admin: 10/13/20 05:01 Dose: 1 mg Documented by: Hydromorphone HCl (Dilaudid) 0.5 mg IVPUSH Q6H PRN PRN Reason: Pain Lactated Ringer's (Ringers, Lactated) 1,000 mls @ 125 mls/hr IV ASDIRECTED [facility] Stop: 10/07/20 23:00 Last Infusion: 10/07/20 18:01 Dose: Infused Documented by: Lidocaine HCl (Xylocaine-Mpf 1%) Confirm Administered Dose 4 mls @ as directed .ROUTE .[facility] ONE Stop: 10/07/20 07:23 Sodium Chloride (Normal Saline) Confirm Administered Dose 10 mls @ as directed .ROUTE .[facility] ONE Stop: 10/07/20 08:28 Lidocaine HCl (Xylocaine-Mpf 1%) Confirm Administered Dose 2 mls @ as directed .ROUTE .[facility] ONE Stop: 10/07/20 08:32 Sodium Chloride (Normal Saline) Confirm Administered Dose 100 mls @ as directed .ROUTE .[facility] ONE Stop: 10/07/20 09:37 Lactated Ringer's (Ringers, Lactated) Confirm Administered Dose 2,000 mls @ as directed .ROUTE .[facility] ONE Stop: 10/07/20 12:09 Lactated Ringer's (Ringers, Lactated) Confirm Administered Dose 1,000 mls @ as directed .ROUTE .[facility] ONE Stop: 10/07/20 13:41 Lactated Ringer's (Ringers, Lactated) Confirm Administered Dose 1,000 mls @ as directed .ROUTE .ST-MED ONE Stop: 10/07/20 14:20 Lactated Ringer's (Ringers, Lactated) Confirm Administered Dose 1,000 mls @ as directed .ROUTE .ST-MED ONE Stop: 10/07/20 15:39 Lactated Ringer's (Ringers, Lactated) 1,000 mls @ 100 mls/hr IV ASDIRECTED [facility] Last Admin: 10/08/20 22:31 Dose: 100 mls/hr Documented by: Magnesium Sulfate (Magnesium Sulfate In Water 2 Gm/50 Ml) 2 gm in 50 mls @ 50 mls/hr IV ONETIME ONE Stop: 10/08/20 08:14 Last Admin: 10/08/20 08:29 Dose: 50 mls/hr Documented by: Potassium Chloride/Dextrose/Sod Cl (D5 1/2 Ns W/ 20 Meq/L Kcl) 1,000 mls @ 125 mls/hr IV ASDIRECTED [facility] Last Infusion: 10/10/20 10:19 Dose: 125 mls/hr Documented by: Lidocaine HCl (Xylocaine-Mpf 1%) Confirm Administered Dose 2 mls @ as directed .ROUTE .STK-MED ONE Stop: 10/09/20 08:09 Magnesium Sulfate (Magnesium Sulfate In Water 2 Gm/50 Ml) 2 gm in 50 mls @ 25 mls/hr IV ONETIME ONE Stop: 10/09/20 15:34 Last Admin: 10/09/20 13:48 Dose: 25 mls/hr Documented by: Lactated Ringer's (Ringers, Lactated) 500 mls @ 999 mls/hr IV .[facility] ONE Stop: 10/10/20 03:06 Last Admin: 10/10/20 03:40 Dose: 999 mls/hr Documented by: Lactated Ringer's (Ringers, Lactated) 1,000 mls @ 1,000 mls/hr IV .[facility] ONE Stop: 10/10/20 09:30 Last Admin: 10/10/20 09:15 Dose: 1,000 mls/hr Documented by: Magnesium Sulfate (Magnesium Sulfate In Water 2 Gm/50 Ml) 2 gm in 50 mls @ 25 mls/hr IV ONETIME ONE Stop: 10/10/20 10:59 Last Admin: 10/10/20 09:49 Dose: 25 mls/hr Documented by: Lactated Ringer's (Ringers, Lactated) 1,000 mls @ 150 mls/hr IV ASDIRECTED [facility] Last Admin: 10/11/20 01:27 Dose: 150 mls/hr Documented by: Piperacillin Sod/Tazobactam (Sod 4.5 gm/ Sodium Chloride) 100 mls @ 25 mls/hr IV Q8H [facility] Last Admin: 10/12/20 03:19 Dose: 25 mls/hr Documented by: Piperacillin Sod/Tazobactam (Sod 4.5 gm/ Sodium Chloride) 100 mls @ 200 mls/hr IV ONETIME ONE Stop: 10/10/20 12:29 Last Admin: 10/10/20 11:31 Dose: 200 mls/hr Documented by: Magnesium Sulfate (Magnesium Sulfate In Water 4 Gm/50 Ml) 50 mls @ 12.5 mls/hr IV ONETIME ONE Stop: 10/11/20 11:59 Last Admin: 10/11/20 08:11 Dose: 12.5 mls/hr Documented by: Potassium Cl/Dextrose/Lact Ringer's (D5 Lr With 20 Meq Kcl) 1,000 mls @ 150 [facility] Last Admin: 10/12/20 05:10 Dose: 150 mls/hr Documented by: Magnesium Sulfate 4 gm/ Premix 50 mls @ 12.5 mls/hr IV ONETIME ONE Stop: 10/12/20 13:44 Last Admin: 10/12/20 09:54 Dose: 12.5 mls/hr Documented by: Potassium Cl/Dextrose/Lact Ringer's (D5 Lr With 20 Meq Kcl) 1,000 mls [facility] Admin: 10/13/20 05:01 Dose: 125 mls/hr Documented by: Magnesium Sulfate (Magnesium Sulfate In Water 2 Gm/50 Ml) 2 gm in 50 mls @ 25 mls/hr IV ONETIME ONE Stop: 10/13/20 12:02 Last Admin: 10/13/20 10:33 Dose: 25 mls/hr Documented by: Potassium Cl/Dextrose/Lact Ringer's (D5 Lr With 20 Meq Kcl) 1,000 mls [facility] Last Admin: 10/13/20 16:26 Dose: 50 mls/hr Documented by: Magnesium Sulfate 4 gm/ Premix 50 mls @ 12.5 mls/hr IV ONETIME ONE Stop: 10/14/20 12:23 Last Admin: 10/14/20 08:39 Dose: 12.5 mls/hr Documented by: Iopamidol (Isovue-300 (61%)) 50 ml IVPUSH ONETIME ONE Stop: 10/10/20 11:39 Last Admin: 10/10/20 12:48 Dose: 50 ml Documented by: Iopamidol (Isovue-300 (61%)) 100 ml IVPUSH ONETIME ONE Stop: 10/10/20 11:39 Last Admin: 10/10/20 12:49 Dose: 100 ml Documented by: Ketamine HCl (Ketalar) Confirm Administered Dose 500 mg .ROUTE .STK-MED ONE Stop: 10/07/20 10:29 Lidocaine (Aspercreme 4%) 1 each TOP DAILY [facility]OS[facility] Last Admin: 10/12/20 08:16 Dose: 1 each Documented by: Lidocaine/Epinephrine (Xylocaine 1% With Epinephrine 1:100,000) Confirm Administered Dose 20 ml .ROUTE .STK-MED ONE Stop: 10/07/20 07:16 Lidocaine/Sodium Bicarbonate (Buffered Lidocaine 1% In Ns 8.4%) 0.25 ml IDERM ONETIME PRN PRN Reason: Prior to IV Start Stop: 10/07/20 18:00 Last Admin: 10/07/20 07:20 Dose: 0.25 ml Documented by: Midazolam HCl (Versed 1 Mg/Ml) Confirm Administered Dose 2 mg .ROUTE .STK-MED ONE Stop: 10/07/20 07:23 Miscellaneous Information (Remove Patch) 0 ea TRDERM BEDTIME JOSHUA Stop: 10/12/20 23:00 Last Admin: 10/12/20 20:56 Dose: 1 ea Documented by: Morphine Sulfate (Duramorph Pf) Confirm Administered Dose 10 mg .ROUTE .STK-MED ONE Stop: 10/07/20 08:11 Morphine Sulfate (Duramorph Pf) Confirm Administered Dose 10 mg .ROUTE .STK-MED ONE Stop: 10/07/20 09:09 Neostigmine Methylsulfate (Neostigmine Methylsulfate) Confirm Administered Dose 5 mg .ROUTE .STK-MED ONE Stop: 10/07/20 10:21 Ondansetron HCl (Zofran) Confirm Administered Dose 4 mg .ROUTE .STK-MED ONE Stop: 10/07/20 07:25 Ondansetron HCl (Zofran) 4 mg IVPUSH ONETIME PRN PRN Reason: Nausea/Vomiting Stop: 10/07/20 18:00 Oxycodone HCl (Oxycodone) 5 mg PO Q6H PRN PRN Reason: Pain (moderate 4-6) Last Admin: 10/10/20 00:32 Dose: 5 mg Documented by: Propofol (Diprivan 20 Ml) Confirm Administered Dose 200 mg .ROUTE .STK-MED ONE Stop: 10/07/20 07:23 Rocuronium [place] (Zemuron) Confirm Administered Dose 50 mg .ROUTE .STK-MED ONE Stop: 10/07/20 07:26 Rocuronium [place] (Zemuron) Confirm Administered Dose 50 mg .ROUTE .STK-MED ONE Stop: 10/07/20 09:48 Rocuronium [place] (Zemuron) Confirm Administered Dose 50 mg .ROUTE .STK-MED ONE Stop: 10/07/20 13:10 Sodium Chloride (Saline Flush) 10 ml FLUSH ASDIRECTED PRN PRN Reason: Keep Vein Open Stop: 10/07/20 18:00 Sodium Chloride (Saline Flush) 10 ml FLUSH ONETIME PRN PRN Reason: IV FLUSH Last Admin: 10/10/20 12:49 Dose: 10 ml Documented by: - Exam General: Alert, Oriented, Cooperative Lungs: Normal Respiratory Effort, Crackles (bibasilar) Cardiovascular: Regular Rate, Regular Rhythm, No Murmurs GI/Abdominal Exam: Soft, Distended (moderately), Tender (mildly), Other (incisions c/d/i) Sepsis Event Note - Evaluation Sepsis Screening Result: No Definite Risk - Focused Exam Vital Signs: Vital Signs Temp Temp Pulse Resp BP BP Pulse Ox 10/14/20 08:30 98.1 F 64 18 125/66 94 L 10/14/20 06:17 98.4 F 62 16 126/73 95 - Problem List Review Problem List Initiated/Reviewed/Updated: No - My Orders Last 24 Hours: My Active Orders 10/14/20 Breakfast Regular Diet [DIET] 10/15/20 05:11 BASIC METABOLIC PANEL,BMP [CHEM] AM MAGNESIUM [CHEM] AM PHOSPHORUS [CHEM] AM 10/16/20 05:11 BASIC METABOLIC PANEL,BMP [CHEM] AM MAGNESIUM [CHEM] AM PHOSPHORUS [CHEM] AM 10/17/20 05:11 BASIC METABOLIC PANEL,BMP [CHEM] AM MAGNESIUM [CHEM] AM PHOSPHORUS [CHEM] AM - Assessment Assessment:: POD7 extended right hemicolectomy. Passing flatus. Tolerating diet. Still moderate distension - Plan Plan:: - Will advance diet to regular - D/c IVF - D/C IV pain meds - continue ambulation and incentive spirometer - Replete magnesium - daily chem, d/c CBC since has been stable Dispo: pending diet tolerance. Possibly tomorrow.
[2020-10-14] MEDS: traZODone 50 MG Tab PO SCH (21:22)
[2020-10-15] MEDS: Acetaminophen 325 MG Tab PO SCH ×3 (03:42→14:39)
--- NOTE | 2020-10-15 07:21 | PCM.PN ---
- General Info Date of Service: 10/15/20 Subjective Update: Patient is tolerating diet, feeling better. No nausea or vomiting. Functional Status: Reports: Pain Controlled, Tolerating Diet, Ambulating, Urinating - Review of Systems General: Reports: No Symptoms HEENT: Reports: No Symptoms Pulmonary: Reports: No Symptoms Cardiovascular: Reports: No Symptoms Gastrointestinal: Reports: Abdominal Pain (eloy-incisional) - Patient Data Vitals - Most Recent: Last Vital Signs Temp 97.8 F 10/15/20 04:00 Pulse 66 10/15/20 04:00 Resp 18 10/15/20 04:00 BP 97/53 L 10/15/20 04:00 Pulse Ox 96 10/15/20 04:00 Weight - Most Recent: 98.883 kg I&O - Last 24 Hours: Intake & Output 10/14/20 10/15/20 10/15/20 22:59 06:59 14:59 Intake Total 717 325 Output Total 1000 1200 Balance -283 -875 Lab Results Last 24 Hours: Laboratory Results - last 24 hr 10/15/20 Range/Units 04:50 Sodium 144 (136-145) mEq/L Potassium 3.7 (3.5-5.1) mEq/L Chloride 108 H (98-107) mEq/L Carbon Dioxide 25 (21-32) mEq/L Anion Gap 14.7 (5-15) BUN 6 L (7-18) mg/dL Creatinine 0.9 (0.7-1.3) mg/dL Est Cr Clr Drug Dosing 113.86 mL/min Estimated GFR (MDRD) > 60 (>60) mL/min BUN/Creatinine Ratio 6.7 L (14-18) Glucose 105 (74-106) mg/dL Calcium 8.5 (8.5-10.1) mg/dL Phosphorus 4.6 (2.6-4.7) mg/dL Magnesium 1.7 L (1.8-2.4) mg/dl Med Orders - Current: Current Medications Acetaminophen (Tylenol) 650 mg PO Q6H [facility] Last Admin: 10/15/20 03:42 Dose: Not Given Documented by: Cyclobenzaprine HCl (Flexeril) 10 mg PO Q8HR PRN PRN Reason: Spasms Last Admin: 10/13/20 22:39 Dose: 10 mg Documented by: Docusate Sodium (Colace) 100 mg PO BID PRN PRN Reason: Constipation Last Admin: 10/08/20 21:04 Dose: 100 mg Documented by: Enoxaparin Sodium (Lovenox) 40 mg SUBCUT DAILY [facility] Last Admin: 10/14/20 08:18 Dose: 40 mg Documented by: Gabapentin (Neurontin) 300 mg PO BID [facility] Last Admin: 10/14/20 21:22 Dose: 300 mg Documented by: Ondansetron HCl (Zofran) 4 mg IVPUSH Q6H PRN PRN Reason: Nausea/Vomiting Last Admin: 10/10/20 01:12 Dose: 4 mg Documented by: Oxycodone HCl (Oxycodone) 5 mg PO Q6H PRN PRN Reason: Abdominal Pain Last Admin: 10/14/20 06:19 Dose: 5 mg Documented by: Pantoprazole Sodium (Protonix Iv) 40 mg IVPUSH Q12H [facility] Last Admin: 10/14/20 21:22 Dose: 40 mg Documented by: Polyethylene Glycol (Miralax) 17 gm PO DAILY [facility] Last Admin: 10/14/20 10:00 Dose: 17 gm Documented by: Tamsulosin HCl (Flomax) 0.4 mg PO BIDPC [facility] Last Admin: 10/14/20 17:51 Dose: 0.4 mg Documented by: Trazodone HCl (Trazodone) 50 mg PO BEDTIME [facility] Last Admin: 10/14/20 21:22 Dose: 50 mg Documented by: Discontinued Medications Acetaminophen (Tylenol) 650 mg PO Q6H [facility] Last Admin: 10/10/20 05:41 Dose: 650 mg Documented by: Bacitracin (Bacitracin Oint) Confirm Administered Dose 15 gm .ROUTE .STK-MED ONE Stop: 10/07/20 16:20 Bupivacaine HCl/Epinephrine Bitart (Marcaine 0.5%/Epinephrine 1:200,000) Confirm Administered Dose 50 ml .ROUTE .STK-MED ONE Stop: 10/07/20 07:16 Last Admin: 10/07/20 09:49 Dose: 38 ml Documented by: Dexamethasone (Dexamethasone) Confirm Administered Dose 20 mg .ROUTE .STK-MED ONE Stop: 10/07/20 07:25 Dexmedetomidine HCl (Precedex) Confirm Administered Dose 200 mcg .ROUTE .STK-MED ONE Stop: 10/07/20 09:09 Diatrizoate Meglum/Diatrizoate Sod (Gastrografin 37%) 120 ml PO ONETIME ONE Stop: 10/10/20 11:39 Last Admin: 10/11/20 14:25 Dose: Not Given Documented by: Diphenhydramine HCl (Benadryl) 25 mg IVPUSH Q6H PRN PRN Reason: pruritis Stop: 10/07/20 18:00 Docusate Sodium (Colace) 100 mg PO BID PRN PRN Reason: Constipation Ephedrine Sulfate (Ephedrine Sulfate) Confirm Administered Dose 50 mg .ROUTE .STK-MED ONE Stop: 10/07/20 10:21 Epinephrine HCl (Adrenalin) Confirm Administered Dose 1 mg .ROUTE .STK-MED ONE Stop: 10/07/20 09:11 Ertapenem (Invanz) Confirm Administered Dose 1 gm .ROUTE .STK-MED ONE Stop: 10/07/20 07:27 Fentanyl (Sublimaze) Confirm Administered Dose 250 mcg .ROUTE .STK-MED ONE Stop: 10/07/20 07:23 Fentanyl (Sublimaze) 50 mcg IVPUSH Q5M PRN PRN Reason: Pain Stop: 10/07/20 19:00 Last Admin: 10/07/20 17:15 Dose: 50 mcg Documented by: Fentanyl (Sublimaze) Confirm Administered Dose 100 mcg .ROUTE .STK-MED ONE Stop: 10/07/20 16:53 Last Admin: 10/07/20 19:00 Dose: Not Given Documented by: Furosemide (Lasix) Confirm Administered Dose 20 mg .ROUTE .STK-MED ONE Stop: 10/07/20 12:42 Furosemide (Lasix) Confirm Administered Dose 20 mg .ROUTE .STK-MED ONE Stop: 10/07/20 13:40 Gabapentin (Neurontin) 300 mg PO TID [facility] Last Admin: 10/09/20 20:30 Dose: 300 mg Documented by: Gabapentin (Neurontin) 300 mg PO ONETIME ONE Stop: 10/08/20 00:31 Last Admin: 10/08/20 00:38 Dose: 300 mg Documented by: Glycopyrrolate (Robinul) Confirm Administered Dose 0.6 mg .ROUTE .STK-MED ONE Stop: 10/07/20 10:21 Hydromorphone HCl (Dilaudid) 1 mg IVPUSH Q3H PRN PRN Reason: Pain Hydromorphone HCl (Dilaudid) 1 mg IVPUSH Q1H PRN PRN Reason: Abdominal Pain Stop: 10/07/20 19:00 Hydromorphone HCl (Dilaudid) 1 mg IVPUSH Q3H PRN PRN Reason: Pain (severe 7-10) Last Admin: 10/12/20 06:36 Dose: 1 mg Documented by: Hydromorphone HCl (Dilaudid) 1 mg IVPUSH Q6H PRN PRN Reason: Pain Last Admin: 10/13/20 05:01 Dose: 1 mg Documented by: Hydromorphone HCl (Dilaudid) 0.5 mg IVPUSH Q6H PRN PRN Reason: Pain Lactated Ringer's (Ringers, Lactated) 1,000 mls @ 125 mls/hr IV ASDIRECTED JOSHUA Stop: 10/07/20 23:00 Last Infusion: 10/07/20 18:01 Dose: Infused Documented by: Lidocaine HCl (Xylocaine-Mpf 1%) Confirm Administered Dose 4 mls @ as directed .ROUTE .STK-MED ONE Stop: 10/07/20 07:23 Sodium Chloride (Normal Saline) Confirm Administered Dose 10 mls @ as directed .ROUTE .STK-MED ONE Stop: 10/07/20 08:28 Lidocaine HCl (Xylocaine-Mpf 1%) Confirm Administered Dose 2 mls @ as directed .ROUTE .STK-MED ONE Stop: 10/07/20 08:32 Sodium Chloride (Normal Saline) Confirm Administered Dose 100 mls @ as directed .ROUTE .STK-MED ONE Stop: 10/07/20 09:37 Lactated Ringer's (Ringers, Lactated) Confirm Administered Dose 2,000 mls @ as directed .ROUTE .STK-MED ONE Stop: 10/07/20 12:09 Lactated Ringer's (Ringers, Lactated) Confirm Administered Dose 1,000 mls @ as directed .ROUTE .STK-MED ONE Stop: 10/07/20 13:41 Lactated Ringer's (Ringers, Lactated) Confirm Administered Dose 1,000 mls @ as directed .ROUTE .STK-MED ONE Stop: 10/07/20 14:20 Lactated Ringer's (Ringers, Lactated) Confirm Administered Dose 1,000 mls @ as directed .ROUTE .STK-MED ONE Stop: 10/07/20 15:39 Lactated Ringer's (Ringers, Lactated) 1,000 [facility]ls [facility]: 10/08/20 22:31 Dose: 100 mls/hr Documented by: Magnesium Sulfate (Magnesium Sulfate In Water 2 Gm/50 Ml) 2 gm in 50 mls @ 50 mls/hr IV ONETIME ONE Stop: 10/08/20 08:14 Last Admin: 10/08/20 08:29 Dose: 50 mls/hr Documented by: Potassium Chloride/Dextrose/Sod Cl (D5 1/2 Ns W/ 20 Meq/L Kcl) 1,000 mls @ 125 mls/hr IV ASDIRECTED [facility] Last Infusion: 10/10/20 10:19 Dose: 125 mls/hr Documented by: Lidocaine HCl (Xylocaine-Mpf 1%) Confirm Administered Dose 2 mls @ as directed .ROUTE .[facility] ONE Stop: 10/09/20 08:09 Magnesium Sulfate (Magnesium Sulfate In Water 2 Gm/50 Ml) 2 gm in 50 mls @ 25 mls/hr IV ONETIME ONE Stop: 10/09/20 15:34 Last Admin: 10/09/20 13:48 Dose: 25 mls/hr Documented by: Lactated Ringer's (Ringers, Lactated) 500 mls @ 999 mls/hr IV .BOLUS ONE Stop: 10/10/20 03:06 Last Admin: 10/10/20 03:40 Dose: 999 mls/hr Documented by: Lactated Ringer's (Ringers, Lactated) 1,000 mls @ 1,000 mls/hr IV .BOLUS ONE Stop: 10/10/20 09:30 Last Admin: 10/10/20 09:15 Dose: 1,000 mls/hr Documented by: Magnesium Sulfate (Magnesium Sulfate In Water 2 Gm/50 Ml) 2 gm in 50 mls @ 25 mls/hr IV ONETIME ONE Stop: 10/10/20 10:59 Last Admin: 10/10/20 09:49 Dose: 25 mls/hr Documented by: Lactated Ringer's (Ringers, Lactated) 1,000 mls [facility] Admin: 10/11/20 01:27 Dose: 150 mls/hr Documented by: Piperacillin Sod/Tazobactam (Sod 4.5 gm/ Sodium Chloride) 100 mls @ 25 mls/hr IV Q8H [facility] Last Admin: 10/12/20 03:19 Dose: 25 mls/hr Documented by: Piperacillin Sod/Tazobactam (Sod 4.5 gm/ Sodium Chloride) 100 mls @ 200 mls/hr IV ONETIME ONE Stop: 10/10/20 12:29 Last Admin: 10/10/20 11:31 Dose: 200 mls/hr Documented by: Magnesium Sulfate (Magnesium Sulfate In Water 4 Gm/50 Ml) 50 mls @ 12.5 mls/hr IV ONETIME ONE Stop: 10/11/20 11:59 Last Admin: 10/11/20 08:11 Dose: 12.5 mls/hr Documented by: Potassium Cl/Dextrose/Lact Ringer's (D5 Lr With 20 Meq Kcl) 1,000 mls [facility] Admin: 10/12/20 05:10 Dose: 150 mls/hr Documented by: Magnesium Sulfate 4 gm/ Premix 50 mls @ 12.5 mls/hr IV ONETIME ONE Stop: 10/12/20 13:44 Last Admin: 10/12/20 09:54 Dose: 12.5 mls/hr Documented by: Potassium Cl/Dextrose/Lact Ringer's (D5 Lr With 20 Meq Kcl) 1,000 mls @ 125 [facility] Last Admin: 10/13/20 05:01 Dose: 125 mls/hr Documented by: Magnesium Sulfate (Magnesium Sulfate In Water 2 Gm/50 Ml) 2 gm in 50 mls @ 25 mls/hr IV ONETIME ONE Stop: 10/13/20 12:02 Last Admin: 10/13/20 10:33 Dose: 25 mls/hr Documented by: Potassium Cl/Dextrose/Lact Ringer's (D5 Lr With 20 Meq Kcl) 1,000 mls @ 50 [facility] Last Admin: 10/13/20 16:26 Dose: 50 mls/hr Documented by: Magnesium Sulfate 4 gm/ Premix 50 mls @ 12.5 mls/hr IV ONETIME ONE Stop: 10/14/20 12:23 Last Admin: 10/14/20 08:39 Dose: 12.5 mls/hr Documented by: Iopamidol (Isovue-300 (61%)) 50 ml IVPUSH ONETIME ONE Stop: 10/10/20 11:39 Last Admin: 10/10/20 12:48 Dose: 50 ml Documented by: Iopamidol (Isovue-300 (61%)) 100 ml IVPUSH ONETIME ONE Stop: 10/10/20 11:39 Last Admin: 10/10/20 12:49 Dose: 100 ml Documented by: Ketamine HCl (Ketalar) Confirm Administered Dose 500 mg .ROUTE .STK-MED ONE Stop: 10/07/20 10:29 Lidocaine (Aspercreme 4%) 1 each TOP DAILY [facility] Last Admin: 10/12/20 08:16 Dose: 1 each Documented by: Lidocaine/Epinephrine (Xylocaine 1% With Epinephrine 1:100,000) Confirm Administered Dose 20 ml .ROUTE .STK-MED ONE Stop: 10/07/20 07:16 Lidocaine/Sodium Bicarbonate (Buffered Lidocaine 1% In Ns 8.4%) 0.25 ml IDERM ONETIME PRN PRN Reason: Prior to IV Start Stop: 10/07/20 18:00 Last Admin: 10/07/20 07:20 Dose: 0.25 ml Documented by: Midazolam HCl (Versed 1 Mg/Ml) Confirm Administered Dose 2 mg .ROUTE .STK-MED ONE Stop: 10/07/20 07:23 Miscellaneous Information (Remove Patch) 0 ea TRDERM BEDTIME [facility] Stop: 10/12/20 23:00 Last Admin: 10/12/20 20:56 Dose: 1 ea Documented by: Morphine Sulfate (Duramorph Pf) Confirm Administered Dose 10 mg .ROUTE .STK-MED ONE Stop: 10/07/20 08:11 Morphine Sulfate (Duramorph Pf) Confirm Administered Dose 10 mg .ROUTE .STK-MED ONE Stop: 10/07/20 09:09 Neostigmine Methylsulfate (Neostigmine Methylsulfate) Confirm Administered Dose 5 mg .ROUTE .STK-MED ONE Stop: 10/07/20 10:21 Ondansetron HCl (Zofran) Confirm Administered Dose 4 mg .ROUTE .STK-MED ONE Stop: 10/07/20 07:25 Ondansetron HCl (Zofran) 4 mg IVPUSH ONETIME PRN PRN Reason: Nausea/Vomiting Stop: 10/07/20 18:00 Oxycodone HCl (Oxycodone) 5 mg PO Q6H PRN PRN Reason: Pain (moderate 4-6) Last Admin: 10/10/20 00:32 Dose: 5 mg Documented by: Propofol (Diprivan 20 Ml) Confirm Administered Dose 200 mg .ROUTE .STK-MED ONE Stop: 10/07/20 07:23 Rocuronium Wallace (Zemuron) Confirm Administered Dose 50 mg .ROUTE .STK-MED ONE Stop: 10/07/20 07:26 Rocuronium Wallace (Zemuron) Confirm Administered Dose 50 mg .ROUTE .STK-MED ONE Stop: 10/07/20 09:48 Rocuronium Wallace (Zemuron) Confirm Administered Dose 50 mg .ROUTE .STK-MED ONE Stop: 10/07/20 13:10 Sodium Chloride (Saline Flush) 10 ml FLUSH ASDIRECTED PRN PRN Reason: Keep Vein Open Stop: 10/07/20 18:00 Sodium Chloride (Saline Flush) 10 ml FLUSH ONETIME PRN PRN Reason: IV FLUSH Last Admin: 10/10/20 12:49 Dose: 10 ml Documented by: - Exam General: Alert, Oriented, Cooperative Lungs: Clear to Auscultation, Normal Respiratory Effort Cardiovascular: Regular Rate, Regular Rhythm, No Murmurs GI/Abdominal Exam: Soft, No Distention, No Abnormal Bruit, Tender (appropriately) Sepsis Event Note - Evaluation Sepsis Screening Result: No Definite Risk - Focused Exam Vital Signs: Vital Signs Temp Temp Pulse Pulse Resp BP BP 10/15/20 04:00 97.8 F 66 18 97/53 L 10/15/20 00:00 98.0 F 66 20 106/62 10/14/20 20:00 98.2 F 73 20 121/85 10/14/20 19:47 98.2 F 73 20 121/85 Pulse Ox 10/15/20 04:00 96 10/15/20 00:00 97 10/14/20 20:00 97 10/14/20 19:47 97 - Problem List Review Problem List Initiated/Reviewed/Updated: No - My Orders Last 24 Hours: My Active Orders 10/14/20 Breakfast Regular Diet [DIET] 10/16/20 05:11 BASIC METABOLIC PANEL,BMP [CHEM] AM MAGNESIUM [CHEM] AM PHOSPHORUS [CHEM] AM 10/17/20 05:11 BASIC METABOLIC PANEL,BMP [CHEM] AM MAGNESIUM [CHEM] AM PHOSPHORUS [CHEM] AM - Assessment Assessment:: POD8 extended right hemicolectomy. Has BF. Tolerating diet, ambulating, pain controlled, off oxygen - Plan Plan:: - Patient is doing well. - May remove skin mary today and placed steri strips - Plan is to dc home today
[2020-10-15] MEDS: Gabapentin 300 MG Cap PO SCH (09:23)
[2020-10-15] MEDS: Tamsulosin 0.4 MG Cap.ER PO SCH (09:23)
[2020-10-15] MEDS: Enoxaparin 40 MG/0.4 ML Syringe SUBCUT SCH (09:24)
[2020-10-15] MEDS: Pantoprazole 40 MG Vial IVPUSH SCH (09:25)
[2020-10-15] MEDS: Polyethylene Glycol 3350 Powder 17 GM Packet PO SCH ×2 (09:26→09:29)
--- NOTE | 2020-10-15 13:57 | PCM.DCSUM1 ---
Discharge Summary - Hospital Course Free Text/Narrative:: Patient underwent extended right colectomy on 10/07/2020 for colon cancer. His post operative stay was complicated by urinary retention requiring holbrook catheter placement and paralytic ileus requiring NG tube placement. Patient improved and holbrook was discontinued and NGt removed. he tolerated diet which was advanced slowly to regular. His pain was controlled well on oral medications, he was having bowel function and ambulating without requiring supplemental oxygen. He will be discharged to home. He will follow up with me in clinic in 1 week. Diagnosis: Stroke: No - Discharge Data Discharge Date: 10/15/20 Discharge Disposition: Home, Self-Care 01 Condition: Good - Referral to Home Health Primary Care Physician: Rex Julian MD - Patient Instructions Diet: Heart Healthy Diet Activity: As Tolerated, No Lifting Over 20 Pounds (for 6 weeks) Driving: Do Not Drive (until of opioid pain medications for 24 hrs) Showering/Bathing: May Shower (do not scrub the incisions), No Tub Bathi ng/Swimming Wound/Incision Care: Keep Operative Site/Wound Site Clean and Dry, Do NOT Change Dressing Notify Provider of: Fever, Increased Pain, Swelling and Redness, Drainage, Nausea and/or Vomiting Other/Special Instructions: - Continue to ambulate. - Continue breathing exercises - Discharge Plan *PRESCRIPTION DRUG MONITORING PROGRAM REVIEWED*: No *COPY OF PRESCRIPTION DRUG MONITORING REPORT IN PATIENT JOE: No Prescriptions/Med Rec: Docusate Sodium [Colace] 100 mg PO BID 15 Days #30 cap oxyCODONE 5 mg PO Q6H PRN 5 Days #20 tablet PRN Reason: Abdominal Pain Tobacco Cessation Medication: Prescription Refused Home Medications: Home Meds Folic Acid 1 mg PO DAILY 10/06/20 [History] Gabapentin [Neurontin] 300 mg PO BID 10/06/20 [History] Levothyroxine [Synthroid] 50 mcg PO DAILY 10/06/20 [History] Sertraline HCl [Zoloft] 50 mg PO DAILY 10/06/20 [History] lisinopriL [Lisinopril] 20 mg PO DAILY 10/06/20 [History] traZODone HCl [Trazodone HCl] 50 mg PO BEDTIME 10/06/20 [History] Acetaminophen [Tylenol] 650 mg PO Q6H tablet 10/15/20 [Rx] Docusate Sodium [Colace] 100 mg PO BID 15 Days #30 cap 10/15/20 [Rx] Gabapentin [Neurontin] 300 mg PO BID cap 10/15/20 [Rx] oxyCODONE 5 mg PO Q6H PRN 5 Days #20 tablet 10/15/20 [Rx] Oxygen Therapy Mode: Room Air Patient Handouts: Steps to Quit Smoking Referrals: Rex Julian MD [Primary Care Provider] - Barrera Chan MD [Physician] - 10/23/20 1:30 pm (Please arrive at 1:15 to check in and appt. time is at 1:30) - Discharge Summary/Plan Comment DC Time >30 min.: Yes - General Info Date of Service: 10/15/20 Admission Dx/Problem (Free Text: Colectomy Subjective Update: Tolerating regular food, ambulating, urinating. No issues Functional Status: Reports: Pain Controlled, Tolerating Diet, Ambulating, Urinating - Review of Systems General: Reports: No Symptoms HEENT: Reports: No Symptoms Pulmonary: Reports: No Symptoms Cardiovascular: Reports: No Symptoms Gastrointestinal: Reports: Abdominal Pain (post op) Genitourinary: Reports: No Symptoms Musculoskeletal: Reports: Back Pain (chronic) - Patient Data Vitals - Most Recent: Last Vital Signs Temp 98.0 F 10/15/20 11:50 Pulse 64 10/15/20 11:50 Resp 16 10/15/20 11:50 BP 124/54 L 10/15/20 11:50 Pulse Ox 95 10/15/20 11:50 Weight - Most Recent: 98.883 kg I&O - Last 24 hours: Intake & Output 10/14/20 10/15/20 10/15/20 22:59 06:59 14:59 Intake Total 717 325 360 Output Total 1000 1200 Balance -283 -870 360 Lab Results - Last 24 hrs: Laboratory Results - last 24 hr 10/15/20 Range/Units 04:50 Sodium 144 (136-145) mEq/L Potassium 3.7 (3.5-5.1) mEq/L Chloride 108 H (98-107) mEq/L Carbon Dioxide 25 (21-32) mEq/L Anion Gap 14.7 (5-15) BUN 6 L (7-18) mg/dL Creatinine 0.9 (0.7-1.3) mg/dL Est Cr Clr Drug Dosing 113.86 mL/min Estimated GFR (MDRD) > 60 (>60) mL/min BUN/Creatinine Ratio 6.7 L (14-18) Glucose 105 (74-106) mg/dL Calcium 8.5 (8.5-10.1) mg/dL Phosphorus 4.6 (2.6-4.7) mg/dL Magnesium 1.7 L (1.8-2.4) mg/dl Med Orders - Current: Current Medications Acetaminophen (Tylenol) 650 mg PO Q6H [facility] Last Admin: 10/15/20 09:23 Dose: 650 mg Documented by: Cyclobenzaprine HCl (Flexeril) 10 mg PO Q8HR PRN PRN Reason: Spasms Last Admin: 10/13/20 22:39 Dose: 10 mg Documented by: Docusate Sodium (Colace) 100 mg PO BID PRN PRN Reason: Constipation Last Admin: 10/08/20 21:04 Dose: 100 mg Documented by: Enoxaparin Sodium (Lovenox) 40 mg SUBCUT DAILY [facility] Last Admin: 10/15/20 09:24 Dose: 40 mg Documented by: Gabapentin (Neurontin) 300 mg PO BID [facility] Last Admin: 10/15/20 09:23 Dose: 300 mg Documented by: Ondansetron HCl (Zofran) 4 mg IVPUSH Q6H PRN PRN Reason: Nausea/Vomiting Last Admin: 10/10/20 01:12 Dose: 4 mg Documented by: Oxycodone HCl (Oxycodone) 5 mg PO Q6H PRN PRN Reason: Abdominal Pain Last Admin: 10/14/20 06:19 Dose: 5 mg Documented by: Pantoprazole Sodium (Protonix Iv) 40 mg IVPUSH Q12H [facility] Last Admin: 10/15/20 09:25 Dose: 40 mg Documented by: Polyethylene Glycol (Miralax) 17 gm PO DAILY [facility] Last Admin: 10/15/20 09:29 Dose: Not Given Documented by: Tamsulosin HCl (Flomax) 0.4 mg PO BIDPC [facility] Last Admin: 10/15/20 09:23 Dose: 0.4 mg Documented by: Trazodone HCl (Trazodone) 50 mg PO BEDTIME [facility] Last Admin: 10/14/20 21:22 Dose: 50 mg Documented by: Discontinued Medications Acetaminophen (Tylenol) 650 mg PO Q6H [facility] Last Admin: 10/10/20 05:41 Dose: 650 mg Documented by: Bacitracin (Bacitracin Oint) Confirm Administered Dose 15 gm .ROUTE .STK-MED ONE Stop: 10/07/20 16:20 Bupivacaine HCl/Epinephrine Bitart (Marcaine 0.5%/Epinephrine 1:200,000) Confirm Administered Dose 50 ml .ROUTE .STK-MED ONE Stop: 10/07/20 07:16 Last Admin: 10/07/20 09:49 Dose: 38 ml Documented by: Dexamethasone (Dexamethasone) Confirm Administered Dose 20 mg .ROUTE .STK-MED ONE Stop: 10/07/20 07:25 Dexmedetomidine HCl (Precedex) Confirm Administered Dose 200 mcg .ROUTE .STK-MED ONE Stop: 10/07/20 09:09 Diatrizoate Meglum/Diatrizoate Sod (Gastrografin 37%) 120 ml PO ONETIME ONE Stop: 10/10/20 11:39 Last Admin: 10/11/20 14:25 Dose: Not Given Documented by: Diphenhydramine HCl (Benadryl) 25 mg IVPUSH Q6H PRN PRN Reason: pruritis Stop: 10/07/20 18:00 Docusate Sodium (Colace) 100 mg PO BID PRN PRN Reason: Constipation Ephedrine Sulfate (Ephedrine Sulfate) Confirm Administered Dose 50 mg .ROUTE .STK-MED ONE Stop: 10/07/20 10:21 Epinephrine HCl (Adrenalin) Confirm Administered Dose 1 mg .ROUTE .STK-MED ONE Stop: 10/07/20 09:11 Ertapenem (Invanz) Confirm Administered Dose 1 gm .ROUTE .STK-MED ONE Stop: 10/07/20 07:27 Fentanyl (Sublimaze) Confirm Administered Dose 250 mcg .ROUTE .STK-MED ONE Stop: 10/07/20 07:23 Fentanyl (Sublimaze) 50 mcg IVPUSH Q5M PRN PRN Reason: Pain Stop: 10/07/20 19:00 Last Admin: 10/07/20 17:15 Dose: 50 mcg Documented by: Fentanyl (Sublimaze) Confirm Administered Dose 100 mcg .ROUTE .STK-MED ONE Stop: 10/07/20 16:53 Last Admin: 10/07/20 19:00 Dose: Not Given Documented by: Furosemide (Lasix) Confirm Administered Dose 20 mg .ROUTE .STK-MED ONE Stop: 10/07/20 12:42 Furosemide (Lasix) Confirm Administered Dose 20 mg .ROUTE .ST-MED ONE Stop: 10/07/20 13:40 Gabapentin (Neurontin) 300 mg PO TID [facility] Last Admin: 10/09/20 20:30 Dose: 300 mg Documented by: Gabapentin (Neurontin) 300 mg PO ONETIME ONE Stop: 10/08/20 00:31 Last Admin: 10/08/20 00:38 Dose: 300 mg Documented by: Glycopyrrolate (Robinul) Confirm Administered Dose 0.6 mg .ROUTE .[facility]-MED ONE Stop: 10/07/20 10:21 Hydromorphone HCl (Dilaudid) 1 mg IVPUSH Q3H PRN PRN Reason: Pain Hydromorphone HCl (Dilaudid) 1 mg IVPUSH Q1H PRN PRN Reason: Abdominal Pain Stop: 10/07/20 19:00 Hydromorphone HCl (Dilaudid) 1 mg IVPUSH Q3H PRN PRN Reason: Pain (severe 7-10) Last Admin: 10/12/20 06:36 Dose: 1 mg Documented by: Hydromorphone HCl (Dilaudid) 1 mg IVPUSH Q6H PRN PRN Reason: Pain Last Admin: 10/13/20 05:01 Dose: 1 mg Documented by: Hydromorphone HCl (Dilaudid) 0.5 mg IVPUSH Q6H PRN PRN Reason: Pain Lactated Ringer's (Ringers, Lactated) 1,000 mls @ 125 mls/hr IV ASDIRECTED [facility] Stop: 10/07/20 23:00 Last Infusion: 10/07/20 18:01 Dose: Infused Documented by: Lidocaine HCl (Xylocaine-Mpf 1%) Confirm Administered Dose 4 mls @ as directed .ROUTE .ST-MED ONE Stop: 10/07/20 07:23 Sodium Chloride (Normal Saline) Confirm Administered Dose 10 mls @ as directed .ROUTE .[facility]-MED ONE Stop: 10/07/20 08:28 Lidocaine HCl (Xylocaine-Mpf 1%) Confirm Administered Dose 2 mls @ as directed .ROUTE .[facility]-MED ONE Stop: 10/07/20 08:32 Sodium Chloride (Normal Saline) Confirm Administered Dose 100 mls @ as directed .ROUTE .[facility] ONE Stop: 10/07/20 09:37 Lactated Ringer's (Ringers, Lactated) Confirm Administered Dose 2,000 mls @ as directed .ROUTE .[facility] ONE Stop: 10/07/20 12:09 Lactated Ringer's (Ringers, Lactated) Confirm Administered Dose 1,000 mls @ as directed .ROUTE .[facility] ONE Stop: 10/07/20 13:41 Lactated Ringer's (Ringers, Lactated) Confirm Administered Dose 1,000 mls @ as directed .ROUTE .[facility] ONE Stop: 10/07/20 14:20 Lactated Ringer's (Ringers, Lactated) Confirm Administered Dose 1,000 mls @ as directed .ROUTE .[facility] ONE Stop: 10/07/20 15:39 Lactated Ringer's (Ringers, Lactated) 1,000 mls @ 100 [facility] Last Admin: 10/08/20 22:31 Dose: 100 mls/hr Documented by: Magnesium Sulfate (Magnesium Sulfate In Water 2 Gm/50 Ml) 2 gm in 50 mls @ 50 mls/hr IV ONETIME ONE Stop: 10/08/20 08:14 Last Admin: 10/08/20 08:29 Dose: 50 mls/hr Documented by: Potassium Chloride/Dextrose/Sod Cl (D5 1/2 Ns W/ 20 Meq/L Kcl) 1,000 mls @ 125 mls/hr IV ASDIRECTED [facility] Last Infusion: 10/10/20 10:19 Dose: 125 mls/hr Documented by: Lidocaine HCl (Xylocaine-Mpf 1%) Confirm Administered Dose 2 mls @ as directed .ROUTE .[facility] ONE Stop: 10/09/20 08:09 Magnesium Sulfate (Magnesium Sulfate In Water 2 Gm/50 Ml) 2 gm in 50 mls @ 25 mls/hr IV ONETIME ONE Stop: 10/09/20 15:34 Last Admin: 10/09/20 13:48 Dose: 25 mls/hr Documented by: Lactated Ringer's (Ringers, Lactated) 500 mls @ 999 mls/hr IV .[facility] ONE Stop: 10/10/20 03:06 Last Admin: 10/10/20 03:40 Dose: 999 mls/hr Documented by: Lactated Ringer's (Ringers, Lactated) 1,000 mls @ 1,000 mls/hr IV .BOLUS ONE Stop: 10/10/20 09:30 Last Admin: 10/10/20 09:15 Dose: 1,000 mls/hr Documented by: Magnesium Sulfate (Magnesium Sulfate In Water 2 Gm/50 Ml) 2 gm in 50 mls @ 25 mls/hr IV ONETIME ONE Stop: 10/10/20 10:59 Last Admin: 10/10/20 09:49 Dose: 25 mls/hr Documented by: Lactated Ringer's (Ringers, Lactated) 1,000 mls @ 150 mls/hr IV ASDIRECTED [facility] Last Admin: 10/11/20 01:27 Dose: 150 mls/hr Documented by: Piperacillin Sod/Tazobactam (Sod 4.5 gm/ Sodium Chloride) 100 mls @ 25 mls/hr IV Q8H [facility] Last Admin: 10/12/20 03:19 Dose: 25 mls/hr Documented by: Piperacillin Sod/Tazobactam (Sod 4.5 gm/ Sodium Chloride) 100 mls @ 200 mls/hr IV ONETIME ONE Stop: 10/10/20 12:29 Last Admin: 10/10/20 11:31 Dose: 200 mls/hr Documented by: Magnesium Sulfate (Magnesium Sulfate In Water 4 Gm/50 Ml) 50 mls @ 12.5 mls/hr IV ONETIME ONE Stop: 10/11/20 11:59 Last Admin: 10/11/20 08:11 Dose: 12.5 mls/hr Documented by: Potassium Cl/Dextrose/Lact Ringer's (D5 Lr With 20 Meq Kcl) 1,000 mls @ 150 mls/hr IV ASDIRECTED [facility] Last Admin: 10/12/20 05:10 Dose: 150 mls/hr Documented by: Magnesium Sulfate 4 gm/ Premix 50 mls @ 12.5 mls/hr IV ONETIME ONE Stop: 10/12/20 13:44 Last Admin: 10/12/20 09:54 Dose: 12.5 mls/hr Documented by: Potassium Cl/Dextrose/Lact Ringer's (D5 Lr With 20 Meq Kcl) 1,000 mls @ 125 mls/hr IV ASDIRECTED [facility] Last Admin: 10/13/20 05:01 Dose: 125 mls/hr Documented by: Magnesium Sulfate (Magnesium Sulfate In Water 2 Gm/50 Ml) 2 gm in 50 mls @ 25 mls/hr IV ONETIME ONE Stop: 10/13/20 12:02 Last Admin: 10/13/20 10:33 Dose: 25 mls/hr Documented by: Potassium Cl/Dextrose/Lact Ringer's (D5 Lr With 20 Meq Kcl) 1,000 mls @ 50 mls/hr IV ASDIRECTED [facility] Last Admin: 10/13/20 16:26 Dose: 50 mls/hr Documented by: Magnesium Sulfate 4 gm/ Premix 50 mls @ 12.5 mls/hr IV ONETIME ONE Stop: 10/14/20 12:23 Last Admin: 10/14/20 08:39 Dose: 12.5 mls/hr Documented by: Iopamidol (Isovue-300 (61%)) 50 ml IVPUSH ONETIME ONE Stop: 10/10/20 11:39 Last Admin: 10/10/20 12:48 Dose: 50 ml Documented by: Iopamidol (Isovue-300 (61%)) 100 ml IVPUSH ONETIME ONE Stop: 10/10/20 11:39 Last Admin: 10/10/20 12:49 Dose: 100 ml Documented by: Ketamine HCl (Ketalar) Confirm Administered Dose 500 mg .ROUTE .STK-MED ONE Stop: 10/07/20 10:29 Lidocaine (Aspercreme 4%) 1 each TOP DAILY [facility] Last Admin: 10/12/20 08:16 Dose: 1 each Documented by: Lidocaine/Epinephrine (Xylocaine 1% With Epinephrine 1:100,000) Confirm Administered Dose 20 ml .ROUTE .STK-MED ONE Stop: 10/07/20 07:16 Lidocaine/Sodium Bicarbonate (Buffered Lidocaine 1% In Ns 8.4%) 0.25 ml IDERM ONETIME PRN PRN Reason: Prior to IV Start Stop: 10/07/20 18:00 Last Admin: 10/07/20 07:20 Dose: 0.25 ml Documented by: Midazolam HCl (Versed 1 Mg/Ml) Confirm Administered Dose 2 mg .ROUTE .STK-MED ONE Stop: 10/07/20 07:23 Miscellaneous Information (Remove Patch) 0 ea TRDERM BEDTIME JOSHUA Stop: 10/12/20 23:00 Last Admin: 10/12/20 20:56 Dose: 1 ea Documented by: Morphine Sulfate (Duramorph Pf) Confirm Administered Dose 10 mg .ROUTE .STK-MED ONE Stop: 10/07/20 08:11 Morphine Sulfate (Duramorph Pf) Confirm Administered Dose 10 mg .ROUTE .STK-MED ONE Stop: 10/07/20 09:09 Neostigmine Methylsulfate (Neostigmine Methylsulfate) Confirm Administered Dose 5 mg .ROUTE .STK-MED ONE Stop: 10/07/20 10:21 Ondansetron HCl (Zofran) Confirm Administered Dose 4 mg .ROUTE .STK-MED ONE Stop: 10/07/20 07:25 Ondansetron HCl (Zofran) 4 mg IVPUSH ONETIME PRN PRN Reason: Nausea/Vomiting Stop: 10/07/20 18:00 Oxycodone HCl (Oxycodone) 5 mg PO Q6H PRN PRN Reason: Pain (moderate 4-6) Last Admin: 10/10/20 00:32 Dose: 5 mg Documented by: Propofol (Diprivan 20 Ml) Confirm Administered Dose 200 mg .ROUTE .STK-MED ONE Stop: 10/07/20 07:23 Rocuronium [place] (Zemuron) Confirm Administered Dose 50 mg .ROUTE .STK-MED ONE Stop: 10/07/20 07:26 Rocuronium [place] (Zemuron) Confirm Administered Dose 50 mg .ROUTE .STK-MED ONE Stop: 10/07/20 09:48 Rocuronium [place] (Zemuron) Confirm Administered Dose 50 mg .ROUTE .STK-MED ONE Stop: 10/07/20 13:10 Sodium Chloride (Saline Flush) 10 ml FLUSH ASDIRECTED PRN PRN Reason: Keep Vein Open Stop: 10/07/20 18:00 Sodium Chloride (Saline Flush) 10 ml FLUSH ONETIME PRN PRN Reason: IV FLUSH Last Admin: 10/10/20 12:49 Dose: 10 ml Documented by: - Exam General: Reports: Alert, Oriented, Cooperative Lungs: Reports: Normal Respiratory Effort, Crackles (slight, bibasilar) Cardiovascular: Reports: Regular Rate, Regular Rhythm, No Murmurs GI/Abdominal Exam: Soft, Non-Tender, Distended (mildly), Tender (appropriately around the incisions)
== END 2020-10-15 14:50 | disposition home or self-care (01) | DRG 230 ==
LOC: JD.ICU 07:12 → JD.MS 10-11 18:52
PROVIDERS: ADMIT Surgery; ATTEND Surgery
PROC: 0DTF4ZZ Resection of Right Large Intestine, Percutaneous Endoscopic Approach (ICD-10-PCS; principal; 2020-10-07)
PROC: 0DBB4ZZ Excision of Ileum, Percutaneous Endoscopic Approach (ICD-10-PCS; 2020-10-07)
PROC: 0DBU4ZZ Excision of Omentum, Percutaneous Endoscopic Approach (ICD-10-PCS; 2020-10-07)
PROC: 07BB4ZZ Excision of Mesenteric Lymphatic, Percutaneous Endoscopic Approach (ICD-10-PCS; 2020-10-07)
PROC: 0D9670Z Drainage of Stomach with Drainage Device, Via Natural or Artificial Opening (ICD-10-PCS; 2020-10-10)
DX: C18.9 Malignant neoplasm of colon, unspecified (principal); F17.210 Nicotine dependence, cigarettes, uncomplicated; F10.10 Alcohol abuse, uncomplicated; R33.9 Retention of urine, unspecified; K56.7 Ileus, unspecified; I10 Essential (primary) hypertension; Z79.899 Other long term (current) drug therapy; Z79.890 Hormone replacement therapy; Z88.6 Allergy status to analgesic agent; E86.0 Dehydration
CPT/HCPCS: 00790; 36415; 51701; 51702; 62320; 71045; 71045-26; 74018; 74018-26; 74177; 74177-26; 80048; 80053; 80179; 81001; 82962; 83735; 84100; 85025; 86850; 86900; 86901; 94760; 94761; A9270-GY; C9113; J0171; J1100; J1170; J1335; J1650; J1940; J2250; J2270; J2405; J2543; J2704; J2710; J3010; J3475; J3480; J3490; J7120; Q9963; Q9967

== ENCOUNTER 2021-04-04 15:31 | Inpatient (IN) | payer BC ==
[2021-04-04] MEDS ORDERED: Sodium Chloride 0.9% 10 ML Syringe FLUSH PRN (15:58)
[2021-04-04] MEDS ORDERED: Diltiazem 50 MG/10 ML SDV IVPUSH ONE (15:58)
--- NOTE | 2021-04-04 16:11 | EDM.PDOC ---
ED HPI GENERAL MEDICAL PROBLEM - General Chief Complaint: Cardiovascular Problem Stated Complaint: RAPID HEART BEAT Time Seen by Provider: 04/04/21 15:41 Source of Information: Reports: Patient, Family (spouse), RN Notes Reviewed - History of Present Illness INITIAL COMMENTS - FREE TEXT/NARRATIVE: 55 yr male noted to be in a fib/flutter at [facility] this afternoon. He has been receiving chemo for colon cancer S/P resection about 5 to 6 months ago. He is not sure when this started. He does not feel palpitations, not aware of the rapid heart rate. No chest pain or difficulty breathing. Hx Htn on lisinopril for that. No recent cough, fever or chills. Treatments JAVA APPLICATION DEVELOPER: Reports: Other (see below) Other Treatments JAVA APPLICATION DEVELOPER: iv fluids at the [facility] - Related Data Allergies Allergy/AdvReac Type Severity Reaction Status Date / Time naproxen [From Aleve] Allergy Severe Rash Verified 04/04/21 15:50 Home Meds: Home Meds Folic Acid 1 mg PO DAILY 10/06/20 [History] Gabapentin [Neurontin] 300 mg PO BID 10/06/20 [History] Levothyroxine [Synthroid] 50 mcg PO DAILY 10/06/20 [History] Sertraline HCl [Zoloft] 50 mg PO DAILY 10/06/20 [History] lisinopriL [Lisinopril] 20 mg PO DAILY 10/06/20 [History] traZODone HCl [Trazodone HCl] 50 mg PO BEDTIME 10/06/20 [History] Acetaminophen [Tylenol] 650 mg PO Q6H tablet 10/15/20 [Rx] Docusate Sodium [Colace] 100 mg PO BID 15 Days #30 cap 10/15/20 [Rx] Gabapentin [Neurontin] 300 mg PO BID cap 10/15/20 [Rx] oxyCODONE 5 mg PO Q6H PRN 5 Days #20 tablet 10/15/20 [Rx] Past Medical History HEENT History: Reports: Impaired Vision Cardiovascular History: Reports: Hypertension Respiratory History: Reports: None Gastrointestinal History: Reports: Other (See Below) Other Gastrointestinal History: colon mass-cancer Genitourinary History: Reports: None [employer]PER History: Reports: None Musculoskeletal History: Reports: Other (See Below) Other Musculoskeletal History: left knee surgery Neurological History: Reports: Other (See Below) Other Neuro History: bilateral foot tingling Psychiatric History: Reports: Addiction, Depression Endocrine/Metabolic History: Reports: Hypothyroidism Hematologic History: Reports: None Immunologic History: Reports: None Oncologic (Cancer) History: Reports: Colon Dermatologic History: Reports: None - Infectious Disease History Infectious Disease History: Reports: None - Past Surgical History Head Surgeries/Procedures: Reports: None Cardiovascular Surgical History: Reports: None Respiratory Surgical History: Reports: None GI Surgical History: Reports: Colonoscopy Male Surgical History: Reports: None Endocrine Surgical History: Reports: None Neurological Surgical History: Reports: None Musculoskeletal Surgical History: Reports: Arthroscopic Knee Oncologic Surgical History: Reports: None Dermatological Surgical History: Reports: None Social & Family History - Tobacco Use Tobacco Use Status *Q: Current Every Day Tobacco User Years of Tobacco use: 25 Packs/Tins Daily: 1 - Caffeine Use Caffeine Use: Reports: Coffee, Soda, Tea Other Caffeine Use: 2 pots/day - Recreational Drug Use Recreational Drug Use: No ED ROS GENERAL - Review of Systems Review Of Systems: See Below Constitutional: Denies: Fever, Chills, Diaphoresis HEENT: Reports: No Symptoms Respiratory: Denies: Shortness of Breath, Pleuritic Chest Pain Cardiovascular: Denies: Chest Pain, Palpitations Endocrine: Reports: Fatigue GI/Abdominal: Reports: Decreased Appetite. Denies: Abdominal Pain, Vomiting Musculoskeletal: Denies: Shoulder Pain, Arm Pain Skin: Reports: No Symptoms Neurological: Reports: Dizziness ED EXAM, GENERAL - Physical Exam Exam: See Below General Appearance: Alert, No Apparent Distress Throat/Mouth: Normal Inspection Head: Atraumatic Neck: Supple Respiratory/Chest: No Respiratory Distress, Lungs Clear, Normal Breath Sounds Cardiovascular: Regular Rate, Rhythm GI/Abdominal: Soft, Non-Tender Extremities: Normal Inspection Neurological: Alert, Oriented, No Motor/Sensory Deficits Skin Exam: Warm, Dry, Normal Color #1 Interpretation EKG Date: 04/04/21 Rhythm: A-Flutter Rate (Beats/Min): 130 P-Wave: Absent QRS: Normal ST-T: Normal Course - Vital Signs Last Recorded V/S: Last Vital Signs Temp 97.1 F 04/04/21 15:41 Pulse 139 H 04/04/21 15:41 Resp 18 04/04/21 15:41 BP 115/77 04/04/21 15:41 Pulse Ox 100 04/04/21 15:41 - Orders/Labs/Meds Orders: Active Orders 24 hr Category Date Time Status EKG Documentation Completion [RC] ASDIRECTED Care 04/04/21 15:42 Active Peripheral IV Care [RC] . DIRECTED Care 04/04/21 15:59 Active Diltiazem [Cardizem] 100 mg Med 04/04/21 18:45 Active Sodium Chloride 0.9% [Normal Saline] 100 ml IV TITRATE Sodium Chloride 0.9% [Saline Flush] Med 04/04/21 15:58 Active 10 ml FLUSH ASDIRECTED PRN Peripheral IV Insertion Adult [OM.PC] Stat Oth 04/04/21 15:58 Ordered EKG 12 Lead [EK] Stat Ther 04/04/21 15:42 Ordered Medication Orders Diltiazem HCl 100 mg/ Sodium (Chloride) 100 mls @ 5 mls/hr IV TITRATE JOSHUA; Protocol Last Admin: 04/04/21 18:43 Dose: 5 mg/hr, 5 mls/hr Documented by: TIMBO Sodium Chloride (Sodium Chloride 0.9% 10 Ml Syringe) 10 ml FLUSH ASDIRECTED PRN PRN Reason: Keep Vein Open Last Admin: 04/04/21 16:08 Dose: 10 ml Documented by: TIMBO Meds: Medications Generic Name Dose Route Start Last Admin Trade Name Freq PRN Reason Stop Dose Admin Diltiazem HCl 100 mg/ Sodium 100 mls @ 5 mls/hr 04/04/21 18:45 04/04/21 18:43 Chloride IV 5 mg/hr TITRATE JOSHUA 5 mls/hr Administration Protocol 5 MG/HR Sodium Chloride 10 ml 04/04/21 15:58 04/04/21 16:08 Sodium Chloride 0.9% 10 Ml Syringe FLUSH 10 ml ASDIRECTED PRN Administration Keep Vein Open Discontinued Medications Generic Name Dose Route Start Last Admin Trade Name Freq PRN Reason Stop Dose Admin Diltiazem HCl 20 mg 04/04/21 15:58 04/04/21 16:08 Diltiazem 50 Mg/10 Ml Sdv IVPUSH 04/04/21 15:59 20 mg ONETIME ONE Administration - Re-Assessments/Exams Free Text/Narrative Re-Assessment/Exam: 04/04/21 16:13 EKG shows A flutter, rate 130. Labs drawn 3 days ago at time of last chemo. have been sent over, they have been reviewed and are all relatively normal. 04/04/21 17:15. BP has been in the 80's and 90' s systolic after diltiazem 10 mg IV times 2. Rate is down to upper 90's, low 100's. CXR normal. Because of his recent chemo 3 days ago. 04/04/21 18:51 Rate went back up to the 130's a short time ago, dilitiazem drip to start at 5 mg /hr ordered a short time ago. Pt will be admitted for further treatment. Departure - Departure Time of Disposition: 18:45 Disposition: Refer to Observation Condition: Fair Clinical Impression: History of recent chemotherapy Atrial flutter Qualifiers: Atrial flutter type: unspecified Qualified Code(s): I48.92 - Unspecified atrial flutter Hypotension Qualifiers: Hypotension type: unspecified hypotension type Qualified Code(s): I95.9 - Hypotension, unspecified Referrals: Rex Julian MD [Primary Care Provider] - Forms: ED Department Discharge Sepsis Event Note (ED) - Evaluation Sepsis Screening Result: No Definite Risk - Focused Exam Vital Signs: Vital Signs Temp Pulse Resp BP Pulse Ox 04/04/21 15:41 97.1 F 139 H 18 115/77 100 ED Communication - Discussed Case With (1) Discussed Case With (1): Admitting Provider (Dr Jackman, decision to admit at about 18:45) - My Orders Last 24 Hours: My Active Orders 04/04/21 15:42 EKG Documentation Completion [RC] ASDIRECTED EKG 12 Lead [EK] Stat 04/04/21 15:58 Sodium Chloride 0.9% [Saline Flush] 10 ml FLUSH ASDIRECTED PRN Peripheral IV Insertion Adult [OM.PC] Stat 04/04/21 15:59 Peripheral IV Care [RC] . DIRECTED 04/04/21 18:45 Diltiazem [Cardizem] 100 mg Sodium Chloride 0.9% [Normal Saline] 100 ml IV TITRATE - Assessment/Plan Last 24 Hours: My Active Orders 04/04/21 15:42 EKG Documentation Completion [RC] ASDIRECTED EKG 12 Lead [EK] Stat 04/04/21 15:58 Sodium Chloride 0.9% [Saline Flush] 10 ml FLUSH ASDIRECTED PRN Peripheral IV Insertion Adult [OM.PC] Stat 04/04/21 15:59 Peripheral IV Care [RC] . DIRECTED 04/04/21 18:45 Diltiazem [Cardizem] 100 mg Sodium Chloride 0.9% [Normal Saline] 100 ml IV TITRATE
--- NOTE | 2021-04-04 18:37 | CR ---
Chest: Portable view of the chest was obtained. Comparison: Prior chest x-ray of 10/10/20. Heart size and mediastinum are within normal limits. Right-sided infusion catheter is seen. Minimal linear density is seen within the left lung base most likely representing scarring. Lungs otherwise are clear with no acute parenchymal change. Scattered degenerative endplate spurring is noted within the spine. Impression: 1. Findings as noted above. 2. Nothing acute is seen on portable chest x-ray. Diagnostic code #2
[2021-04-04] MEDS ORDERED: Diltiazem 100 MG in Sodium Chloride 0.9% 100 ML IV SCH (18:45)
--- NOTE | 2021-04-04 19:46 | PCM.HP.2 ---
H&P History of Present Illness - General Date of Service: 04/04/21 Admit Problem/Dx: Admission Diagnosis/Problem Admission Diagnosis/Problem Atrial fibrillation with rapid ventricular response Source of Information: Patient, Provider History Limitations: Reports: No Limitations - History of Present Illness Initial Comments - Free Text/Narative: 55 year old male presented to e.[facility]. with manuel after i.v infusion for malaise after chemotherapy. feeling dizzy ,no pleurisy,syncope or anginal like pain. found in afib/flutter vent [id number]. on cardizem slowed down but b.p dropped and rate slowed down. currently at 5 and hr 110-120. feels fairly well otherwise. hx of colon ca stage unknown treated with surgical resection followed by chemo.tolerates fairly well gained weight of 20 lbs. ros. 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 works in oil field but unable to drive currently . Onset of Symptoms: Reports: Today Symptom Onset Date: 04/04/21 Duration of Symptoms: Reports: Hour(s):, Getting Worse Severity: Moderate Improves with: Reports: None Worsens with: Reports: None Context: Denies: Sick Contact Associated Symptoms: Reports: No Other Symptoms, Malaise - Related Data Allergies/Adverse Reactions: Allergies Allergy/AdvReac Type Severity Reaction Status Date / Time naproxen [From Aleve] Allergy Severe Rash Verified 04/04/21 15:50 Home Medications: Home Meds Folic Acid 1 mg PO DAILY 10/06/20 [History] Levothyroxine [Synthroid] 50 mcg PO DAILY 10/06/20 [History] Sertraline HCl [Zoloft] 50 mg PO DAILY 10/06/20 [History] lisinopriL [Lisinopril] 20 mg PO DAILY 10/06/20 [History] Docusate Sodium [Colace] 100 mg PO BID 15 Days #30 cap 10/15/20 [Rx] Gabapentin [Neurontin] 300 mg PO BID cap 10/15/20 [Rx] Nortriptyline 25 mg PO BEDTIME 04/04/21 [History] Prochlorperazine Maleate [Compazine] 10 mg PO QID PRN 04/04/21 [History] bisacodyL [Bisacodyl] 5 mg PO BEDTIME 04/04/21 [History] dexAMETHasone [Dexamethasone] 2 tab PO DAILY 04/04/21 [History] metFORMIN [Glucophage XR] 500 mg PO DAILY 04/04/21 [History] Past Medical History HEENT History: Reports: Impaired Vision Cardiovascular History: Reports: Hypertension Respiratory History: Reports: None Gastrointestinal History: Reports: Other (See Below) Other Gastrointestinal History: colon mass-cancer Genitourinary History: Reports: None [employer] History: Reports: None Musculoskeletal History: Reports: Other (See Below) Other Musculoskeletal History: left knee surgery Neurological History: Reports: Other (See Below) Other Neuro History: bilateral foot tingling Psychiatric History: Reports: Addiction, Depression Endocrine/Metabolic History: Reports: Hypothyroidism Hematologic History: Reports: None Immunologic History: Reports: None Oncologic (Cancer) History: Reports: Colon Dermatologic History: Reports: None - Infectious Disease History Infectious Disease History: Reports: None - Past Surgical History Head Surgeries/Procedures: Reports: None Cardiovascular Surgical History: Reports: None Respiratory Surgical History: Reports: None GI Surgical History: Reports: Colonoscopy Male Surgical History: Reports: None Endocrine Surgical History: Reports: None Neurological Surgical History: Reports: None Musculoskeletal Surgical History: Reports: Arthroscopic Knee Oncologic Surgical History: Reports: None Dermatological Surgical History: Reports: None Social & Family History - Tobacco Use Tobacco Use Status *Q: Current Every Day Tobacco User Years of Tobacco use: 25 Packs/Tins Daily: 1 - Caffeine Use Caffeine Use: Reports: Coffee, Soda, Tea Other Caffeine Use: 2 pots/day - Recreational Drug Use Recreational Drug Use: No H&P Review of Systems - Review of Systems: Review Of Systems: See Below General: Reports: No Symptoms, Weakness HEENT: Reports: No Symptoms Pulmonary: Reports: Shortness of Breath Cardiovascular: Reports: No Symptoms, Lightheadedness Gastrointestinal: Reports: No Symptoms Genitourinary: Reports: No Symptoms Musculoskeletal: Reports: No Symptoms Skin: Reports: No Symptoms Psychiatric: Reports: No Symptoms Neurological: Reports: No Symptoms Hematologic/Lymphatic: Reports: No Symptoms Immunologic: Reports: No Symptoms Exam - Exam Exam: See Below - Vital Signs Vital Signs: Last Vital Signs Temp 36.2 C 04/04/21 15:41 Pulse 139 H 04/04/21 15:41 Resp 18 04/04/21 15:41 BP 115/77 04/04/21 15:41 Pulse Ox 100 04/04/21 15:41 Weight: 104.326 kg - Exam General: Alert, Oriented, 4 HEENT: PERRLA, Hearing Intact, Mucosa Moist & Oakes, Nares Patent, Normal Nasal Septum, Posterior Pharynx Clear, Conjunctiva Clear, EOMI, EACs Clear, TMs Clear Neck: Supple, Trachea Midline, 2 Lungs: Clear to Auscultation, Normal Respiratory Effort Cardiovascular: Regular Rate, Regular Rhythm GI/Abdominal Exam: Normal Bowel Sounds, Soft, Non-Tender, No Organomegaly, No Distention, No Abnormal Bruit, No Mass, Pelvis Stable (Male) Exam: Deferred. No: No Hernia, Normal Inspection, Normal Prostate, Circumcised Rectal (Males) Exam: No: Normal Exam, Normal Rectal Tone, Prostate Normal Back Exam: Normal Inspection, Full Range of Motion, NT Extremities: Normal Inspection, Normal Range of Motion, Non-Tender, No Pedal Edema, Normal Capillary Refill Skin: Warm, Dry, Intact Neurological: Cranial Nerves Intact, Reflexes Equal Bilateral Neuro Extensive - Mental Status: Alert, Oriented x3, Normal Mood/Affect, Normal Cognition Neuro Extensive - Motor, Sensory, Reflexes: CN II-XII Intact, Normal Gait, Normal Reflexes Psychiatric: Alert, Normal Affect, Normal Mood Sepsis Event Note - Evaluation Sepsis Screening Result: No Definite Risk Current Stage of Sepsis: Ruled Out Reason for Ruling Out Sepsis: manuel/chemo - Focused Exam Sepsis Event Note Statement: denies symptoms Vital Signs: Vital Signs Temp Pulse Resp BP Pulse Ox 04/04/21 15:41 36.2 C 139 H 18 115/77 100 Pulse Description: 2+ Normal Peripheral Pulse Location: Carotid Skin Exam (Focused Sepsis): Normal Turgor - Bedside Monitoring CVP Measures: Less than 8 ScvO2 Measures: Greater than or Equal to 70% Bedside Ultrasound Performed: No Passive Leg Raise/Fluid Bolus: Not Performed Date Bedside Monitoring was Performed: 04/04/21 Time Bedside Monitoring was Performed: 20:06 - Problem List (1) Colon cancer SNOMED Code(s): 935935388 ICD Code: C18.9 - MALIGNANT NEOPLASM OF COLON, UNSPECIFIED Status: Acute Priority: Medium Current Visit: Yes Onset Date: ~04/04/21 Qualifiers: Colon location: descending Qualified Code(s): C18.6 - Malignant neoplasm of descending colon (2) Atrial flutter SNOMED Code(s): 1649961 ICD Code: I48.92 - UNSPECIFIED ATRIAL FLUTTER Status: Acute Priority: High Current Visit: Yes Onset Date: ~04/04/21 Qualifiers: Atrial flutter type: unspecified Qualified Code(s): I48.92 - Unspecified atrial flutter (3) History of recent chemotherapy SNOMED Code(s): 790030557 ICD Code: [id number] - Status: Acute Priority: Medium Current Visit: Yes Onset Date: ~04/04/21 (4) Hypotension SNOMED Code(s): 48597098 ICD Code: I95.9 - HYPOTENSION, UNSPECIFIED Status: Acute Priority: Medium Current Visit: Yes Onset Date: ~04/04/21 Qualifiers: Hypotension type: orthostatic hypotension Qualified Code(s): I95.1 - Orthostatic hypotension Problem List Initiated/Reviewed/Updated: Yes Orders Last 24hrs: Active Orders 24 hr Category Date Time Status Patient Status [ADT] Routine ADT 04/04/21 19:19 Active EKG Documentation Completion [RC] ASDIRECTED Care 04/04/21 15:42 Active Peripheral IV Care [RC] . DIRECTED Care 04/04/21 15:59 Active Diltiazem [Cardizem] 100 mg Med 04/04/21 18:45 Active Sodium Chloride 0.9% [Normal Saline] 100 ml IV TITRATE Sodium Chloride 0.9% [Saline Flush] Med 04/04/21 15:58 Active 10 ml FLUSH ASDIRECTED PRN Peripheral IV Insertion Adult [OM.PC] Stat Oth 04/04/21 15:58 Ordered EKG 12 Lead [EK] Stat Ther 04/04/21 15:42 Ordered Medication Orders Diltiazem HCl 100 mg/ Sodium (Chloride) 100 mls @ 5 mls/hr IV TITRATE JOSHUA; Protocol Last Admin: 04/04/21 18:43 Dose: 5 mg/hr, 5 mls/hr Documented by: TIMBO Sodium Chloride (Sodium Chloride 0.9% 10 Ml Syringe) 10 ml FLUSH ASDIRECTED PRN PRN Reason: Keep Vein Open Last Admin: 04/04/21 16:08 Dose: 10 ml Documented by: TIMBO Assessment/Plan Comment:: 04/04/21 assess: 1/// a flutter /fib rvr on cardizem drip and will likely add beta ruby if rate control not acheived. risk factors chemo/dehydration/etoh?/hypertensive cv disease. ? triggered by i.v. therapy. rule out other cardiac issues echo as o.p. repeat mg ca and k in am . no evidence of pulm issues and sats stable on room air. 2/// colon ca : monitor chemo affects. eating and report only neuropathy and fatigue. side effects. dehydration recheck orthostatic b.p. 3/// chemo 4///neuropathy : on second to last chemo treatment. plan i.v cardizem and monitor icu boh - Mortality Measure Prognosis:: Good
[2021-04-04] MEDS ORDERED: LORazepam 2 MG/ML SDV IV PRN (20:17)
[2021-04-04] MEDS ORDERED: Acetaminophen 325 MG Tab PO PRN (20:17)
[2021-04-04] MEDS ORDERED: Prochlorperazine 5 MG Tab PO PRN (20:27)
[2021-04-04] MEDS: Docusate Sodium 100 MG Cap PO SCH (21:08)
[2021-04-04] MEDS: Gabapentin 300 MG Cap PO SCH (21:08)
[2021-04-04] MEDS: Bisacodyl 5 MG Tab PO SCH (21:09)
[2021-04-04] MEDS: Nortriptyline 25 MG Cap PO SCH (21:09)
[2021-04-05] MEDS: Sertraline 50 MG Tab PO SCH (08:29)
[2021-04-05] MEDS: Nicotine 14 MG/24 Hr Patch TRDERM SCH (08:29)
[2021-04-05] MEDS: Gabapentin 300 MG Cap PO SCH ×2 (08:29→19:59)
[2021-04-05] MEDS: Levothyroxine 50 MCG Tab PO SCH (08:29)
[2021-04-05] MEDS: Docusate Sodium 100 MG Cap PO SCH ×2 (08:29→19:59)
[2021-04-05] MEDS: Folic Acid 1 MG Tab PO SCH (08:29)
[2021-04-05] MEDS: Enoxaparin 30 MG/0.3 ML Syringe SUBCUT SCH (08:30)
[2021-04-05] MEDS ORDERED: Dexamethasone 4 MG Tab PO SCH (09:00)
[2021-04-05] MEDS ORDERED: Metoprolol Tartrate 5 MG/5 ML SDV IVPUSH ONE (11:37)
[2021-04-05 12:01] LABS: HEMOGLOBIN A1C 8.9 %
[2021-04-05] MEDS: Insulin Lispro 100 UNIT/ML 10 ML Vial SUBCUT SCH ×3 (13:44→21:48)
--- NOTE | 2021-04-05 13:48 | PCM.PN ---
- General Info Date of Service: 04/05/21 Admission Dx/Problem (Free Text): Admission Diagnosis/Problem Admission Diagnosis/Problem Atrial fibrillation with rapid ventricular response Subjective Update: 04/05/21 afebrile vss but heart rate still 100-140. mildy hypotensive during night with increased Cardizem rate./ b.p sta ble with 5 mg hour/ given i.v metoprolol and rate decreased to 70s without any side effects but still did not convert yet. denies any dizziness when getting up to b.r and no orthostasis. eating well no abd symptoms . b.s 244 a1c 8.4 labs normal mg 1.8 and repeated 2 grams magnesium. k 4.0 na normal tsh normal lfts normal cbc wbc 3.0 hgn 11.2 plat decreased 90 k . bnp 913 bs 266 and 188 a1c 8.9 (never told he was diabetic but gaining weight and eats alot,2 plus glucose in urine but on steriods) (de xamathazone x 4 dyas recheck after dc steroids) assess: plan 1///new onset afib with rvr not converting on diltiazem x 16 hours,adding beta ruby to slow rate and hopefully convert. 2///dehydration mild sec to decreased intake and possible polyuria. 3////hypotension mild and improved sec to diltiazem and decreased intake. 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 see d.e and start type one low carb diet and check b.s off steroids at home . 5/// colon cancer on chemo with neutropenia mild anc >500 and no fever or signs of sepsis/illness. increased nt bnp with afib . check echo as op. ekg no lvh or st changes. boh - Review of Systems General: Reports: No Symptoms HEENT: Reports: No Symptoms Pulmonary: Reports: No Symptoms Cardiovascular: Reports: No Symptoms Gastrointestinal: Reports: No Symptoms Genitourinary: Reports: No Symptoms Musculoskeletal: Reports: No Symptoms Skin: Reports: No Symptoms Neurological: Reports: No Symptoms Psychiatric: Reports: No Symptoms - Patient Data Vitals - Most Recent: Last Vital Signs Temp 36.2 C 04/05/21 12:00 Pulse 97 04/05/21 12:00 Resp 18 04/05/21 12:00 BP 82/69 L 04/05/21 11:58 Pulse Ox 95 04/05/21 12:00 Weight - Most Recent: 104.236 kg I&O - Last 24 Hours: Intake & Output 04/04/21 04/05/21 04/05/21 22:59 06:59 14:59 Intake Total 520 320 Balance 520 320 Lab Results Last 24 Hours: Laboratory Results - last 24 hr 04/04/21 04/05/21 04/05/21 Range/Units 22:48 04:05 04:05 WBC (4.23-9.07) K/mm3 RBC (4.63-6.08) M/mm3 Hgb (13.7-17.5) gm/dl Hct (40.1-51.0) % MCV (79.0-92.2) fl MCH (25.7-32.2) pg MCHC (32.2-35.5) g/dl RDW Std Deviation (35.1-43.9) fL Plt Count (163-337) K/mm3 MPV (9.4-12.3) fl Neut % (Auto) (34.0-67.9) % Lymph % (Auto) (21.8-53.1) % [place] % (Auto) (5.3-12.2) % Eos % (Auto) (0.8-7.0) Baso % (Auto) (0.1-1.2) % Neut # (Auto) (1.78-5.38) K/mm3 Lymph # (Auto) (1.32-3.57) K/mm3 [place] # (Auto) (0.30-0.82) K/mm3 Eos # (Auto) (0.04-0.54) K/mm3 Baso # (Auto) (0.01-0.08) K/mm3 Manual Slide Review ESR (0-15) mm/hr PT 10.1 (9.7-12.0) SECONDS INR 0.94 APTT 25.6 (21.7-31.4) SECONDS D-Dimer, Quantitative 0.71 H (0.19-0.50) mg/L Sodium 140 (136-145) mEq/L Potassium 4.3 (3.5-5.1) mEq/L Chloride 106 (98-107) mEq/L Carbon Dioxide 25 (21-32) mEq/L Anion Gap 13.3 (5-15) BUN 19 H (7-18) mg/dL Creatinine 1.1 (0.7-1.3) mg/dL Est Cr Clr Drug Dosing 93.16 mL/min Estimated GFR (MDRD) > 60 (>60) mL/min BUN/Creatinine Ratio 17.3 (14-18) Glucose 266 H (70-99) mg/dL Hemoglobin A1c ( - 5.6) % Lactic Acid (0.4-2.0) mmol/L Calcium 8.2 L (8.5-10.1) mg/dL Magnesium 1.9 (1.8-2.4) mg/dL Total Bilirubin 0.2 (0.2-1.0) mg/dL AST 10 L (15-37) U/L ALT 25 (16-63) U/L Alkaline Phosphatase 77 (46-116) U/L Creatine Kinase 44 (39-308) U/L Troponin I < 0.017 (0.00-0.056) ng/mL C-Reactive Protein 1.5 H* (<1.0) mg/dL NT-Pro-B Natriuret Pep (0-125) pg/mL Total Protein 6.4 (6.4-8.2) g/dl Albumin 2.7 L (3.4-5.0) g/dl Globulin 3.7 gm/dL Albumin/Globulin Ratio 0.7 L (1-2) TSH 3rd Generation (0.358-3.74) uIU/mL Urine Color Yellow (Yellow) Urine Appearance Clear (Clear) Urine pH 6.5 (5.0-8.0) Ur Specific [place] 1.020 (1.005-1.030) Urine Protein Negative (Negative) Urine Glucose (UA) 2+ H (Negative) Urine Ketones Negative (Negative) Urine Occult Blood Trace-intact H (Negative) Urine Nitrite Negative (Negative) Urine Bilirubin Negative (Negative) Urine Urobilinogen 0.2 (0.2-1.0) Ur Leukocyte Esterase Negative (Negative) Urine RBC 0-5 (0-5) /hpf Urine WBC 0-5 (0-5) /hpf Ur Epithelial Cells 0-5 (0-5) /hpf Urine Bacteria Rare (FEW) /hpf Urine Mucus Not seen (FEW) /hpf SARS-CoV-2 RNA ([place]) (NEGATIVE) 04/05/21 04/05/21 04/05/21 Range/Units 04:05 04:05 04:05 WBC 3.07 L (4.23-9.07) K/mm3 RBC 3.62 L (4.63-6.08) M/mm3 Hgb 11.0 L (13.7-17.5) gm/dl Hct 33.7 L (40.1-51.0) % MCV 93.1 H (79.0-92.2) fl MCH 30.4 (25.7-32.2) pg MCHC 32.6 (32.2-35.5) g/dl RDW Std Deviation 60.5 H (35.1-43.9) fL Plt Count 90 L D (163-337) K/mm3 MPV 10.4 (9.4-12.3) fl Neut % (Auto) 58.0 (34.0-67.9) % Lymph % (Auto) 31.3 (21.8-53.1) % [place] % (Auto) 6.2 (5.3-12.2) % Eos % (Auto) 4.2 (0.8-7.0) Baso % (Auto) 0.3 (0.1-1.2) % Neut # (Auto) 1.78 (1.78-5.38) K/mm3 Lymph # (Auto) 0.96 L (1.32-3.57) K/mm3 [place] # (Auto) 0.19 L (0.30-0.82) K/mm3 Eos # (Auto) 0.13 (0.04-0.54) K/mm3 Baso # (Auto) 0.01 (0.01-0.08) K/mm3 Manual Slide Review Abnormal smear ESR 34 H (0-15) mm/hr PT (9.7-12.0) SECONDS INR APTT (21.7-31.4) SECONDS D-Dimer, Quantitative (0.19-0.50) mg/L Sodium (136-145) mEq/L Potassium (3.5-5.1) mEq/L Chloride (98-107) mEq/L Carbon Dioxide (21-32) mEq/L Anion Gap (5-15) BUN (7-18) mg/dL Creatinine (0.7-1.3) mg/dL Est Cr Clr Drug Dosing mL/min Estimated GFR (MDRD) (>60) mL/min BUN/Creatinine Ratio (14-18) Glucose (70-99) mg/dL Hemoglobin A1c ( - 5.6) % Lactic Acid 0.8 (0.4-2.0) mmol/L Calcium (8.5-10.1) mg/dL Magnesium (1.8-2.4) mg/dL Total Bilirubin (0.2-1.0) mg/dL AST (15-37) U/L ALT (16-63) U/L Alkaline Phosphatase (46-116) U/L Creatine Kinase (39-308) U/L Troponin I (0.00-0.056) ng/mL C-Reactive Protein (<1.0) mg/dL NT-Pro-B Natriuret Pep (0-125) pg/mL Total Protein (6.4-8.2) g/dl Albumin (3.4-5.0) g/dl Globulin gm/dL Albumin/Globulin Ratio (1-2) TSH 3rd Generation (0.358-3.74) uIU/mL Urine Color (Yellow) Urine Appearance (Clear) Urine pH (5.0-8.0) Ur Specific [place] (1.005-1.030) Urine Protein (Negative) Urine Glucose (UA) (Negative) Urine Ketones (Negative) Urine Occult Blood (Negative) Urine Nitrite (Negative) Urine Bilirubin (Negative) Urine Urobilinogen (0.2-1.0) Ur Leukocyte Esterase (Negative) Urine RBC (0-5) /hpf Urine WBC (0-5) /hpf Ur Epithelial Cells (0-5) /hpf Urine Bacteria (FEW) /hpf Urine Mucus (FEW) /hpf SARS-CoV-2 RNA ([place]) (NEGATIVE) 04/05/21 04/05/21 04/05/21 Range/Units 04:05 04:53 11:40 WBC (4.23-9.07) K/mm3 RBC (4.63-6.08) M/mm3 Hgb (13.7-17.5) gm/dl Hct (40.1-51.0) % MCV (79.0-92.2) fl MCH (25.7-32.2) pg MCHC (32.2-35.5) g/dl RDW Std Deviation (35.1-43.9) fL Plt Count (163-337) K/mm3 MPV (9.4-12.3) fl Neut % (Auto) (34.0-67.9) % Lymph % (Auto) (21.8-53.1) % [place] % (Auto) (5.3-12.2) % Eos % (Auto) (0.8-7.0) Baso % (Auto) (0.1-1.2) % Neut # (Auto) (1.78-5.38) K/mm3 Lymph # (Auto) (1.32-3.57) K/mm3 [place] # (Auto) (0.30-0.82) K/mm3 Eos # (Auto) (0.04-0.54) K/mm3 Baso # (Auto) (0.01-0.08) K/mm3 Manual Slide Review ESR (0-15) mm/hr PT (9.7-12.0) SECONDS INR APTT (21.7-31.4) SECONDS D-Dimer, Quantitative (0.19-0.50) mg/L Sodium (136-145) mEq/L Potassium (3.5-5.1) mEq/L Chloride (98-107) mEq/L Carbon Dioxide (21-32) mEq/L Anion Gap (5-15) BUN (7-18) mg/dL Creatinine (0.7-1.3) mg/dL Est Cr Clr Drug Dosing mL/min Estimated GFR (MDRD) (>60) mL/min BUN/Creatinine Ratio (14-18) Glucose (70-99) mg/dL Hemoglobin A1c 8.9 H ( - 5.6) % Lactic Acid (0.4-2.0) mmol/L Calcium (8.5-10.1) mg/dL Magnesium (1.8-2.4) mg/dL Total Bilirubin (0.2-1.0) mg/dL AST (15-37) U/L ALT (16-63) U/L Alkaline Phosphatase (46-116) U/L Creatine Kinase (39-308) U/L Troponin I (0.00-0.056) ng/mL C-Reactive Protein (<1.0) mg/dL NT-Pro-B Natriuret Pep (0-125) pg/mL Total Protein (6.4-8.2) g/dl Albumin (3.4-5.0) g/dl Globulin gm/dL Albumin/Globulin Ratio (1-2) TSH 3rd Generation 1.314 (0.358-3.74) uIU/mL Urine Color (Yellow) Urine Appearance (Clear) Urine pH (5.0-8.0) Ur Specific [place] (1.005-1.030) Urine Protein (Negative) Urine Glucose (UA) (Negative) Urine Ketones (Negative) Urine Occult Blood (Negative) Urine Nitrite (Negative) Urine Bilirubin (Negative) Urine Urobilinogen (0.2-1.0) Ur Leukocyte Esterase (Negative) Urine RBC (0-5) /hpf Urine WBC (0-5) /hpf Ur Epithelial Cells (0-5) /hpf Urine Bacteria (FEW) /hpf Urine Mucus (FEW) /hpf SARS-CoV-2 RNA ([place]) Negative (NEGATIVE) 04/05/21 Range/Units 11:40 WBC (4.23-9.07) K/mm3 RBC (4.63-6.08) M/mm3 Hgb (13.7-17.5) gm/dl Hct (40.1-51.0) % MCV (79.0-92.2) fl MCH (25.7-32.2) pg MCHC (32.2-35.5) g/dl RDW Std Deviation (35.1-43.9) fL Plt Count (163-337) K/mm3 MPV (9.4-12.3) fl Neut % (Auto) (34.0-67.9) % Lymph % (Auto) (21.8-53.1) % [place] % (Auto) (5.3-12.2) % Eos % (Auto) (0.8-7.0) Baso % (Auto) (0.1-1.2) % Neut # (Auto) (1.78-5.38) K/mm3 Lymph # (Auto) (1.32-3.57) K/mm3 [place] # (Auto) (0.30-0.82) K/mm3 Eos # (Auto) (0.04-0.54) K/mm3 Baso # (Auto) (0.01-0.08) K/mm3 Manual Slide Review ESR (0-15) mm/hr PT (9.7-12.0) SECONDS INR APTT (21.7-31.4) SECONDS D-Dimer, Quantitative (0.19-0.50) mg/L Sodium (136-145) mEq/L Potassium (3.5-5.1) mEq/L Chloride (98-107) mEq/L Carbon Dioxide (21-32) mEq/L Anion Gap (5-15) BUN (7-18) mg/dL Creatinine (0.7-1.3) mg/dL Est Cr Clr Drug Dosing mL/min Estimated GFR (MDRD) (>60) mL/min BUN/Creatinine Ratio (14-18) Glucose (70-99) mg/dL Hemoglobin A1c ( - 5.6) % Lactic Acid (0.4-2.0) mmol/L Calcium (8.5-10.1) mg/dL Magnesium (1.8-2.4) mg/dL Total Bilirubin (0.2-1.0) mg/dL AST (15-37) U/L ALT (16-63) U/L Alkaline Phosphatase (46-116) U/L Creatine Kinase (39-308) U/L Troponin I (0.00-0.056) ng/mL C-Reactive Protein (<1.0) mg/dL NT-Pro-B Natriuret Pep 913 H (0-125) pg/mL Total Protein (6.4-8.2) g/dl Albumin (3.4-5.0) g/dl Globulin gm/dL Albumin/Globulin Ratio (1-2) TSH 3rd Generation (0.358-3.74) uIU/mL Urine Color (Yellow) Urine Appearance (Clear) Urine pH (5.0-8.0) Ur Specific [place] (1.005-1.030) Urine Protein (Negative) Urine Glucose (UA) (Negative) Urine Ketones (Negative) Urine Occult Blood (Negative) Urine Nitrite (Negative) Urine Bilirubin (Negative) Urine Urobilinogen (0.2-1.0) Ur Leukocyte Esterase (Negative) Urine RBC (0-5) /hpf Urine WBC (0-5) /hpf Ur Epithelial Cells (0-5) /hpf Urine Bacteria (FEW) /hpf Urine Mucus (FEW) /hpf SARS-CoV-2 RNA ([place]) (NEGATIVE) Med Orders - Current: Current Medications Acetaminophen (Acetaminophen 325 Mg Tab) 650 mg PO Q4H PRN PRN Reason: Pain (Mild 1-3)/fever Bisacodyl (Bisacodyl 5 Mg Tab) 5 mg PO BEDTIME [facility] Last Admin: 04/04/21 21:09 Dose: Not Given Documented by: Dexamethasone (Dexamethasone 4 Mg Tab) 2 mg PO DAILY [facility] Last Admin: 04/05/21 09:30 Dose: Not Given Documented by: Docusate Sodium (Docusate Sodium 100 Mg Cap) 100 mg PO BID [facility] Last Admin: 04/05/21 08:29 Dose: 100 mg Documented by: Enoxaparin Sodium (Enoxaparin 30 Mg/0.3 Ml Syringe) 30 mg SUBCUT DAILY [facility] Last Admin: 04/05/21 08:30 Dose: 30 mg Documented by: Folic Acid (Folic Acid 1 Mg Tab) 1 mg PO DAILY [facility] Last Admin: 04/05/21 08:29 Dose: 1 mg Documented by: Gabapentin (Gabapentin 300 Mg Cap) 300 mg PO BID [facility] Last Admin: 04/05/21 08:29 Dose: 300 mg Documented by: Diltiazem HCl 100 mg/ Sodium (Chloride) 100 mls @ 5 mls/hr IV TITRATE [facility]; Protocol Last Titration: 04/05/21 09:05 Dose: 0 mg/hr, 0 mls/hr Documented by: Insulin Human Lispro (Insulin Lispro 100 Unit/Ml 10 Ml Vial) 0 unit SUBCUT QIDACANDBED [facility]; Protocol Levothyroxine Sodium (Levothyroxine 50 Mcg Tab) 50 mcg PO DAILY [facility] Last Admin: 04/05/21 08:29 Dose: 50 mcg Documented by: Lorazepam (Lorazepam 2 Mg/Ml Sdv) 1 mg IV Q6H PRN PRN Reason: Nausea/Vomiting Metoprolol Tartrate (Metoprolol Tartrate 25 Mg Tab) 25 mg PO Q12H [facility] Miscellaneous Information (Remove Patch Nicotine) 1 ea TRDERM DAILY [facility] Last Admin: 04/05/21 08:31 Dose: Not Given Documented by: Nicotine (Nicotine 14 Mg/24 Hr Patch) 14 mg TRDERM DAILY [facility] Last Admin: 04/05/21 08:29 Dose: 14 mg Documented by: Nortriptyline HCl (Nortriptyline 25 Mg Cap) 25 mg PO BEDTIME [facility] Last Admin: 04/04/21 21:09 Dose: 25 mg Documented by: Prochlorperazine Maleate (Prochlorperazine 5 Mg Tab) 10 mg PO QID PRN PRN Reason: Vomiting Sertraline HCl (Sertraline 50 Mg Tab) 50 mg PO DAILY [facility] Last Admin: 04/05/21 08:29 Dose: 50 mg Documented by: Sodium Chloride (Sodium Chloride 0.9% 10 Ml Syringe) 10 ml FLUSH ASDIRECTED PRN PRN Reason: Keep Vein Open Last Admin: 04/04/21 16:08 Dose: 10 ml Documented by: Discontinued Medications Diltiazem HCl (Diltiazem 50 Mg/10 Ml Sdv) 20 mg IVPUSH ONETIME ONE Stop: 04/04/21 15:59 Last Admin: 04/04/21 16:08 Dose: 20 mg Documented by: Diltiazem HCl 5 mg/ Sodium (Chloride) 100 mls @ 5 mls/hr IV ASDIRECTED [facility] Metoprolol Tartrate (Metoprolol Tartrate 5 Mg/5 Ml Sdv) 5 mg IVPUSH ONETIME ONE Stop: 04/05/21 11:38 Last Admin: 04/05/21 11:56 Dose: 5 mg Documented by: - Exam Central Line Total Time: 0Days 23Hours General: Alert, Oriented HEENT: Pupils Equal, Pupils Reactive, EOMI, Mucous Membr. Moist/[place] Neck: Supple Lungs: Clear to Auscultation, Normal Respiratory Effort Cardiovascular: Regular Rate, Regular Rhythm GI/Abdominal Exam: Normal Bowel Sounds, Soft, Non-Tender, No Organomegaly, No Distention, No Abnormal Bruit, No Mass, Pelvis Stable (Male) Exam: No Hernia, Normal Inspection, Normal Prostate, Circumcised Back Exam: Normal Inspection, Full Range of Motion Extremities: Normal Inspection, Normal Range of Motion, Non-Tender, No Pedal Edema, Normal Capillary Refill Skin: Warm, Dry, Intact Wound/Incisions: Healing Well Neurological: No New Focal Deficit Psy/Mental Status: Alert, Normal Affect, Normal Mood - Patient Data Lab Results Last 24 hrs: Laboratory Results - last 24 hr 04/04/21 04/05/21 04/05/21 Range/Units 22:48 04:05 04:05 WBC (4.23-9.07) K/mm3 RBC (4.63-6.08) M/mm3 Hgb (13.7-17.5) gm/dl Hct (40.1-51.0) % MCV (79.0-92.2) fl MCH (25.7-32.2) pg MCHC (32.2-35.5) g/dl RDW Std Deviation (35.1-43.9) fL Plt Count (163-337) K/mm3 MPV (9.4-12.3) fl Neut % (Auto) (34.0-67.9) % Lymph % (Auto) (21.8-53.1) % [place] % (Auto) (5.3-12.2) % Eos % (Auto) (0.8-7.0) Baso % (Auto) (0.1-1.2) % Neut # (Auto) (1.78-5.38) K/mm3 Lymph # (Auto) (1.32-3.57) K/mm3 [place] # (Auto) (0.30-0.82) K/mm3 Eos # (Auto) (0.04-0.54) K/mm3 Baso # (Auto) (0.01-0.08) K/mm3 Manual Slide Review ESR (0-15) mm/hr PT 10.1 (9.7-12.0) SECONDS INR 0.94 APTT 25.6 (21.7-31.4) SECONDS D-Dimer, Quantitative 0.71 H (0.19-0.50) mg/L Sodium 140 (136-145) mEq/L Potassium 4.3 (3.5-5.1) mEq/L Chloride 106 (98-107) mEq/L Carbon Dioxide 25 (21-32) mEq/L Anion Gap 13.3 (5-15) BUN 19 H (7-18) mg/dL Creatinine 1.1 (0.7-1.3) mg/dL Est Cr Clr Drug Dosing 93.16 mL/min Estimated GFR (MDRD) > 60 (>60) mL/min BUN/Creatinine Ratio 17.3 (14-18) Glucose 266 H (70-99) mg/dL Hemoglobin A1c ( - 5.6) % Lactic Acid (0.4-2.0) mmol/L Calcium 8.2 L (8.5-10.1) mg/dL Magnesium 1.9 (1.8-2.4) mg/dL Total Bilirubin 0.2 (0.2-1.0) mg/dL AST 10 L (15-37) U/L ALT 25 (16-63) U/L Alkaline Phosphatase 77 (46-116) U/L Creatine Kinase 44 (39-308) U/L Troponin I < 0.017 (0.00-0.056) ng/mL C-Reactive Protein 1.5 H* (<1.0) mg/dL NT-Pro-B Natriuret Pep (0-125) pg/mL Total Protein 6.4 (6.4-8.2) g/dl Albumin 2.7 L (3.4-5.0) g/dl Globulin 3.7 gm/dL Albumin/Globulin Ratio 0.7 L (1-2) TSH 3rd Generation (0.358-3.74) uIU/mL Urine Color Yellow (Yellow) Urine Appearance Clear (Clear) Urine pH 6.5 (5.0-8.0) Ur Specific [place] 1.020 (1.005-1.030) Urine Protein Negative (Negative) Urine Glucose (UA) 2+ H (Negative) Urine Ketones Negative (Negative) Urine Occult Blood Trace-intact H (Negative) Urine Nitrite Negative (Negative) Urine Bilirubin Negative (Negative) Urine Urobilinogen 0.2 (0.2-1.0) Ur Leukocyte Esterase Negative (Negative) Urine RBC 0-5 (0-5) /hpf Urine WBC 0-5 (0-5) /hpf Ur Epithelial Cells 0-5 (0-5) /hpf Urine Bacteria Rare (FEW) /hpf Urine Mucus Not seen (FEW) /hpf SARS-CoV-2 RNA ([place]) (NEGATIVE) 04/05/21 04/05/21 04/05/21 Range/Units 04:05 04:05 04:05 WBC 3.07 L (4.23-9.07) K/mm3 RBC 3.62 L (4.63-6.08) M/mm3 Hgb 11.0 L (13.7-17.5) gm/dl Hct 33.7 L (40.1-51.0) % MCV 93.1 H (79.0-92.2) fl MCH 30.4 (25.7-32.2) pg MCHC 32.6 (32.2-35.5) g/dl RDW Std Deviation 60.5 H (35.1-43.9) fL Plt Count 90 L D (163-337) K/mm3 MPV 10.4 (9.4-12.3) fl Neut % (Auto) 58.0 (34.0-67.9) % Lymph % (Auto) 31.3 (21.8-53.1) % [place] % (Auto) 6.2 (5.3-12.2) % Eos % (Auto) 4.2 (0.8-7.0) Baso % (Auto) 0.3 (0.1-1.2) % Neut # (Auto) 1.78 (1.78-5.38) K/mm3 Lymph # (Auto) 0.96 L (1.32-3.57) K/mm3 [place] # (Auto) 0.19 L (0.30-0.82) K/mm3 Eos # (Auto) 0.13 (0.04-0.54) K/mm3 Baso # (Auto) 0.01 (0.01-0.08) K/mm3 Manual Slide Review Abnormal smear ESR 34 H (0-15) mm/hr PT (9.7-12.0) SECONDS INR APTT (21.7-31.4) SECONDS D-Dimer, Quantitative (0.19-0.50) mg/L Sodium (136-145) mEq/L Potassium (3.5-5.1) mEq/L Chloride (98-107) mEq/L Carbon Dioxide (21-32) mEq/L Anion Gap (5-15) BUN (7-18) mg/dL Creatinine (0.7-1.3) mg/dL Est Cr Clr Drug Dosing mL/min Estimated GFR (MDRD) (>60) mL/min BUN/Creatinine Ratio (14-18) Glucose (70-99) mg/dL Hemoglobin A1c ( - 5.6) % Lactic Acid 0.8 (0.4-2.0) mmol/L Calcium (8.5-10.1) mg/dL Magnesium (1.8-2.4) mg/dL Total Bilirubin (0.2-1.0) mg/dL AST (15-37) U/L ALT (16-63) U/L Alkaline Phosphatase (46-116) U/L Creatine Kinase (39-308) U/L Troponin I (0.00-0.056) ng/mL C-Reactive Protein (<1.0) mg/dL NT-Pro-B Natriuret Pep (0-125) pg/mL Total Protein (6.4-8.2) g/dl Albumin (3.4-5.0) g/dl Globulin gm/dL Albumin/Globulin Ratio (1-2) TSH 3rd Generation (0.358-3.74) uIU/mL Urine Color (Yellow) Urine Appearance (Clear) Urine pH (5.0-8.0) Ur Specific [place] (1.005-1.030) Urine Protein (Negative) Urine Glucose (UA) (Negative) Urine Ketones (Negative) Urine Occult Blood (Negative) Urine Nitrite (Negative) Urine Bilirubin (Negative) Urine Urobilinogen (0.2-1.0) Ur Leukocyte Esterase (Negative) Urine RBC (0-5) /hpf Urine WBC (0-5) /hpf Ur Epithelial Cells (0-5) /hpf Urine Bacteria (FEW) /hpf Urine Mucus (FEW) /hpf SARS-CoV-2 RNA ([place]) (NEGATIVE) 04/05/21 04/05/21 04/05/21 Range/Units 04:05 04:53 11:40 WBC (4.23-9.07) K/mm3 RBC (4.63-6.08) M/mm3 Hgb (13.7-17.5) gm/dl Hct (40.1-51.0) % MCV (79.0-92.2) fl MCH (25.7-32.2) pg MCHC (32.2-35.5) g/dl RDW Std Deviation (35.1-43.9) fL Plt Count (163-337) K/mm3 MPV (9.4-12.3) fl Neut % (Auto) (34.0-67.9) % Lymph % (Auto) (21.8-53.1) % [place] % (Auto) (5.3-12.2) % Eos % (Auto) (0.8-7.0) Baso % (Auto) (0.1-1.2) % Neut # (Auto) (1.78-5.38) K/mm3 Lymph # (Auto) (1.32-3.57) K/mm3 [place] # (Auto) (0.30-0.82) K/mm3 Eos # (Auto) (0.04-0.54) K/mm3 Baso # (Auto) (0.01-0.08) K/mm3 Manual Slide Review ESR (0-15) mm/hr PT (9.7-12.0) SECONDS INR APTT (21.7-31.4) SECONDS D-Dimer, Quantitative (0.19-0.50) mg/L Sodium (136-145) mEq/L Potassium (3.5-5.1) mEq/L Chloride (98-107) mEq/L Carbon Dioxide (21-32) mEq/L Anion Gap (5-15) BUN (7-18) mg/dL Creatinine (0.7-1.3) mg/dL Est Cr Clr Drug Dosing mL/min Estimated GFR (MDRD) (>60) mL/min BUN/Creatinine Ratio (14-18) Glucose (70-99) mg/dL Hemoglobin A1c 8.9 H ( - 5.6) % Lactic Acid (0.4-2.0) mmol/L Calcium (8.5-10.1) mg/dL Magnesium (1.8-2.4) mg/dL Total Bilirubin (0.2-1.0) mg/dL AST (15-37) U/L ALT (16-63) U/L Alkaline Phosphatase (46-116) U/L Creatine Kinase (39-308) U/L Troponin I (0.00-0.056) ng/mL C-Reactive Protein (<1.0) mg/dL NT-Pro-B Natriuret Pep (0-125) pg/mL Total Protein (6.4-8.2) g/dl Albumin (3.4-5.0) g/dl Globulin gm/dL Albumin/Globulin Ratio (1-2) TSH 3rd Generation 1.314 (0.358-3.74) uIU/mL Urine Color (Yellow) Urine Appearance (Clear) Urine pH (5.0-8.0) Ur Specific [place] (1.005-1.030) Urine Protein (Negative) Urine Glucose (UA) (Negative) Urine Ketones (Negative) Urine Occult Blood (Negative) Urine Nitrite (Negative) Urine Bilirubin (Negative) Urine Urobilinogen (0.2-1.0) Ur Leukocyte Esterase (Negative) Urine RBC (0-5) /hpf Urine WBC (0-5) /hpf Ur Epithelial Cells (0-5) /hpf Urine Bacteria (FEW) /hpf Urine Mucus (FEW) /hpf SARS-CoV-2 RNA ([place]) Negative (NEGATIVE) 04/05/21 Range/Units 11:40 WBC (4.23-9.07) K/mm3 RBC (4.63-6.08) M/mm3 Hgb (13.7-17.5) gm/dl Hct (40.1-51.0) % MCV (79.0-92.2) fl MCH (25.7-32.2) pg MCHC (32.2-35.5) g/dl RDW Std Deviation (35.1-43.9) fL Plt Count (163-337) K/mm3 MPV (9.4-12.3) fl Neut % (Auto) (34.0-67.9) % Lymph % (Auto) (21.8-53.1) % [place] % (Auto) (5.3-12.2) % Eos % (Auto) (0.8-7.0) Baso % (Auto) (0.1-1.2) % Neut # (Auto) (1.78-5.38) K/mm3 Lymph # (Auto) (1.32-3.57) K/mm3 [place] # (Auto) (0.30-0.82) K/mm3 Eos # (Auto) (0.04-0.54) K/mm3 Baso # (Auto) (0.01-0.08) K/mm3 Manual Slide Review ESR (0-15) mm/hr PT (9.7-12.0) SECONDS INR APTT (21.7-31.4) SECONDS D-Dimer, Quantitative (0.19-0.50) mg/L Sodium (136-145) mEq/L Potassium (3.5-5.1) mEq/L Chloride (98-107) mEq/L Carbon Dioxide (21-32) mEq/L Anion Gap (5-15) BUN (7-18) mg/dL Creatinine (0.7-1.3) mg/dL Est Cr Clr Drug Dosing mL/min Estimated GFR (MDRD) (>60) mL/min BUN/Creatinine Ratio (14-18) Glucose (70-99) mg/dL Hemoglobin A1c ( - 5.6) % Lactic Acid (0.4-2.0) mmol/L Calcium (8.5-10.1) mg/dL Magnesium (1.8-2.4) mg/dL Total Bilirubin (0.2-1.0) mg/dL AST (15-37) U/L ALT (16-63) U/L Alkaline Phosphatase (46-116) U/L Creatine Kinase (39-308) U/L Troponin I (0.00-0.056) ng/mL C-Reactive Protein (<1.0) mg/dL NT-Pro-B Natriuret Pep 913 H (0-125) pg/mL Total Protein (6.4-8.2) g/dl Albumin (3.4-5.0) g/dl Globulin gm/dL Albumin/Globulin Ratio (1-2) TSH 3rd Generation (0.358-3.74) uIU/mL Urine Color (Yellow) Urine Appearance (Clear) Urine pH (5.0-8.0) Ur Specific [place] (1.005-1.030) Urine Protein (Negative) Urine Glucose (UA) (Negative) Urine Ketones (Negative) Urine Occult Blood (Negative) Urine Nitrite (Negative) Urine Bilirubin (Negative) Urine Urobilinogen (0.2-1.0) Ur Leukocyte Esterase (Negative) Urine RBC (0-5) /hpf Urine WBC (0-5) /hpf Ur Epithelial Cells (0-5) /hpf Urine Bacteria (FEW) /hpf Urine Mucus (FEW) /hpf SARS-CoV-2 RNA ([place]) (NEGATIVE) Result Diagrams: 04/05/21 04:05 04/05/21 04:05 Sepsis Event Note - Evaluation Sepsis Screening Result: No Definite Risk - Focused Exam Vital Signs: Vital Signs Temp Pulse Resp BP BP Pulse Ox 04/05/21 12:00 36.2 C 97 18 95 04/05/21 11:58 82/69 L 04/05/21 11:56 101 H 82/69 L 04/05/21 10:18 114/64 04/05/21 09:03 95/59 L 92 L 04/05/21 09:02 93 L 04/05/21 09:01 89/54 L 93 L 04/05/21 09:00 95 04/05/21 08:28 36.2 C 145 H 18 105/60 105/60 94 L 04/05/21 08:27 95 04/05/21 04:00 36.1 C 86 16 102/65 102/65 95 - Problem List & Annotations (1) Colon cancer SNOMED Code(s): 407392473 Code(s): C18.9 - MALIGNANT NEOPLASM OF COLON, UNSPECIFIED Status: Acute Priority: Medium Current Visit: Yes Onset Date: ~04/04/21 Qualifiers: Colon location: descending Qualified Code(s): C18.6 - Malignant neoplasm of descending colon (2) Atrial flutter SNOMED Code(s): 0740651 Code(s): I48.92 - UNSPECIFIED ATRIAL FLUTTER Status: Acute Priority: High Current Visit: Yes Onset Date: ~04/04/21 Qualifiers: Atrial flutter type: unspecified Qualified Code(s): I48.92 - Unspecified atrial flutter (3) History of recent chemotherapy SNOMED Code(s): 713737553 Code(s): UDI2939 - Status: Acute Priority: Medium Current Visit: Yes Onset Date: ~04/04/21 (4) Hypotension SNOMED Code(s): 28388900 Code(s): I95.9 - HYPOTENSION, UNSPECIFIED Status: Acute Priority: Medium Current Visit: Yes Onset Date: ~04/04/21 Qualifiers: Hypotension type: orthostatic hypotension Qualified Code(s): I95.1 - Orthostatic hypotension - Problem List Review Problem List Initiated/Reviewed/Updated: Yes - My Orders Last 24 Hours: My Active Orders 04/04/21 20:17 Patient Status [ADT] Routine Bedrest Bathroom Privileges [RC] ASDIRECTED Height and Weight [RC] 0400 Oxygen Therapy [RC] PRN Up ad Swetha [RC] ASDIRECTED VTE/DVT Education [RC] Acetaminophen [TylenoL] 650 mg PO Q4H PRN LORazepam [Ativan] 1 mg IV Q6H PRN Resuscitation Status Routine 04/04/21 20:19 Cardiac Monitoring [RC] CONTINUOUS Intake and Output [RC] 04,16 04/04/21 20:27 Prochlorperazine [Compazine] 10 mg PO QID PRN 04/04/21 21:00 Docusate Sodium [Colace] 100 mg PO BID Gabapentin [Neurontin] 300 mg PO BID Nortriptyline 25 mg PO BEDTIME bisacodyL [Dulcolax] 5 mg PO BEDTIME 04/05/21 06:00 EKG Documentation Completion [RC] AM 04/05/21 09:00 BLOOD CULTURE [MREF] AM Enoxaparin [Lovenox] 30 mg SUBCUT DAILY Folic Acid 1 mg PO DAILY Levothyroxine [Synthroid] 50 mcg PO DAILY Nicotine [Habitrol] 14 mg TRDERM DAILY Remove Patch 1 ea TRDERM DAILY Sertraline [Zoloft] 50 mg PO DAILY dexAMETHasone 2 mg PO DAILY 04/05/21 13:21 Blood Glucose Check, Bedside [RC] QIDACANDBED 04/05/21 13:22 Consult to Diabetic Nurse Specialist [CONS] Routine 04/05/21 17:00 Insulin Lispro [HumaLOG] See Protocol SUBCUT QIDACANDBED Metoprolol Tartrate [Lopressor] 25 mg PO Q12H 04/06/21 05:11 BLOOD CULTURE [MREF] AM CBC WITH AUTO DIFF [HEME] DAILY COMPREHENSIVE METABOLIC PN,CMP [CHEM] DAILY - Plan Plan:: 04/04/21 assess: 1/// a flutter /fib rvr on cardizem drip and will likely add beta ruby if rate control not acheived. risk factors chemo/dehydration/etoh?/hypertensive cv disease. ? triggered by i.v. therapy. rule out other cardiac issues echo as o.p. repeat mg ca and k in am . no evidence of pulm issues and sats stable on room air. 2/// colon ca : monitor chemo affects. eating and report only neuropathy and fatigue. side effects. dehydration recheck orthostatic b.p. 3/// chemo 4///neuropathy : on second to last chemo treatment. plan i.v cardizem and monitor icu boh
[2021-04-05] MEDS: Metoprolol Tartrate 25 MG Tab PO SCH (17:19)
[2021-04-05] MEDS: Nortriptyline 25 MG Cap PO SCH (19:59)
[2021-04-05] MEDS: Bisacodyl 5 MG Tab PO SCH (20:00)
[2021-04-06] MEDS: Metoprolol Tartrate 25 MG Tab PO SCH ×2 (04:02→16:41)
[2021-04-06] MEDS: Insulin Lispro 100 UNIT/ML 10 ML Vial SUBCUT SCH ×4 (06:10→21:16)
[2021-04-06] MEDS: Gabapentin 300 MG Cap PO SCH ×2 (08:25→19:59)
[2021-04-06] MEDS: Docusate Sodium 100 MG Cap PO SCH ×2 (08:25→20:00)
[2021-04-06] MEDS: Levothyroxine 50 MCG Tab PO SCH (08:25)
[2021-04-06] MEDS: Folic Acid 1 MG Tab PO SCH (08:25)
[2021-04-06] MEDS: Sertraline 50 MG Tab PO SCH (08:25)
[2021-04-06] MEDS: Nicotine 14 MG/24 Hr Patch TRDERM SCH (08:27)
[2021-04-06] MEDS: Enoxaparin 30 MG/0.3 ML Syringe SUBCUT SCH (08:27)
[2021-04-06] MEDS: Diltiazem 120 MG Cap.CD PO SCH (12:27)
--- NOTE | 2021-04-06 14:29 | PCM.PN ---
- General Info Date of Service: 04/06/21 - Review of Systems General: Reports: No Symptoms HEENT: Reports: No Symptoms Pulmonary: Reports: No Symptoms Cardiovascular: Reports: No Symptoms Gastrointestinal: Reports: No Symptoms Genitourinary: Reports: No Symptoms Musculoskeletal: Reports: No Symptoms Skin: Reports: No Symptoms Neurological: Reports: No Symptoms Psychiatric: Reports: No Symptoms - Patient Data Vitals - Most Recent: Last Vital Signs Temp 97.5 F 04/06/21 08:15 Pulse 143 H 04/06/21 12:27 Resp 16 04/06/21 08:15 BP 100/59 L 04/06/21 12:27 Pulse Ox 94 L 04/06/21 08:15 Weight - Most Recent: 104.372 kg I&O - Last 24 Hours: Intake & Output 04/05/21 04/06/21 04/06/21 22:59 06:59 14:59 Intake Total 1185 1000 Balance 1185 1000 Lab Results Last 24 Hours: Laboratory Results - last 24 hr 04/05/21 04/05/21 04/06/21 Range/Units 17:07 21:44 04:05 WBC 3.26 L (4.23-9.07) K/mm3 RBC 3.84 L (4.63-6.08) M/mm3 Hgb 11.6 L (13.7-17.5) gm/dl Hct 35.6 L (40.1-51.0) % MCV 92.7 H (79.0-92.2) fl MCH 30.2 (25.7-32.2) pg MCHC 32.6 (32.2-35.5) g/dl RDW Std Deviation 58.7 H (35.1-43.9) fL Plt Count 100 L (163-337) K/mm3 MPV 9.5 (9.4-12.3) fl Neut % (Auto) 52.7 (34.0-67.9) % Lymph % (Auto) 35.3 (21.8-53.1) % [place] % (Auto) 8.0 (5.3-12.2) % Eos % (Auto) 3.1 (0.8-7.0) Baso % (Auto) 0.6 (0.1-1.2) % Neut # (Auto) 1.72 L (1.78-5.38) K/mm3 Lymph # (Auto) 1.15 L (1.32-3.57) K/mm3 [place] # (Auto) 0.26 L (0.30-0.82) K/mm3 Eos # (Auto) 0.10 (0.04-0.54) K/mm3 Baso # (Auto) 0.02 (0.01-0.08) K/mm3 Sodium (136-145) mEq/L Potassium (3.5-5.1) mEq/L Chloride (98-107) mEq/L Carbon Dioxide (21-32) mEq/L Anion Gap (5-15) BUN (7-18) mg/dL Creatinine (0.7-1.3) mg/dL Est Cr Clr Drug Dosing mL/min Estimated GFR (MDRD) (>60) mL/min BUN/Creatinine Ratio (14-18) Glucose (70-99) mg/dL POC Glucose 283 H 343 H (70-99) mg/dL Calcium (8.5-10.1) mg/dL Total Bilirubin (0.2-1.0) mg/dL AST (15-37) U/L ALT (16-63) U/L Alkaline Phosphatase (46-116) U/L Total Protein (6.4-8.2) g/dl Albumin (3.4-5.0) g/dl Globulin gm/dL Albumin/Globulin Ratio (1-2) 04/06/21 04/06/21 04/06/21 Range/Units 04:05 06:07 12:22 WBC (4.23-9.07) K/mm3 RBC (4.63-6.08) M/mm3 Hgb (13.7-17.5) gm/dl Hct (40.1-51.0) % MCV (79.0-92.2) fl MCH (25.7-32.2) pg MCHC (32.2-35.5) g/dl RDW Std Deviation (35.1-43.9) fL Plt Count (163-337) K/mm3 MPV (9.4-12.3) fl Neut % (Auto) (34.0-67.9) % Lymph % (Auto) (21.8-53.1) % [place] % (Auto) (5.3-12.2) % Eos % (Auto) (0.8-7.0) Baso % (Auto) (0.1-1.2) % Neut # (Auto) (1.78-5.38) K/mm3 Lymph # (Auto) (1.32-3.57) K/mm3 [place] # (Auto) (0.30-0.82) K/mm3 Eos # (Auto) (0.04-0.54) K/mm3 Baso # (Auto) (0.01-0.08) K/mm3 Sodium 141 (136-145) mEq/L Potassium 4.3 (3.5-5.1) mEq/L Chloride 106 (98-107) mEq/L Carbon Dioxide 24 (21-32) mEq/L Anion Gap 15.3 H (5-15) BUN 17 (7-18) mg/dL Creatinine 1.0 (0.7-1.3) mg/dL Est Cr Clr Drug Dosing 102.47 mL/min Estimated GFR (MDRD) > 60 (>60) mL/min BUN/Creatinine Ratio 17.0 (14-18) Glucose 199 H (70-99) mg/dL POC Glucose 180 H 282 H (70-99) mg/dL Calcium 8.9 (8.5-10.1) mg/dL Total Bilirubin 0.2 (0.2-1.0) mg/dL AST 11 L (15-37) U/L ALT 23 (16-63) U/L Alkaline Phosphatase 80 (46-116) U/L Total Protein 7.0 (6.4-8.2) g/dl Albumin 3.0 L (3.4-5.0) g/dl Globulin 4.0 gm/dL Albumin/Globulin Ratio 0.8 L (1-2) Med Orders - Current: Current Medications Acetaminophen (Acetaminophen 325 Mg Tab) 650 mg PO Q4H PRN PRN Reason: Pain (Mild 1-3)/fever Apixaban (Apixaban 5 Mg Tab) 2.5 mg PO DAILY [facility] Bisacodyl (Bisacodyl 5 Mg Tab) 5 mg PO BEDTIME JOSHUA Last Admin: 04/05/21 20:00 Dose: Not Given Documented by: Diltiazem HCl (Diltiazem 120 Mg Cap.Cd) 120 mg PO DAILY JOSHUA Last Admin: 04/06/21 12:27 Dose: 120 mg Documented by: Docusate Sodium (Docusate Sodium 100 Mg Cap) 100 mg PO BID [facility] Last Admin: 04/06/21 08:25 Dose: 100 mg Documented by: Enoxaparin Sodium (Enoxaparin 30 Mg/0.3 Ml Syringe) 30 mg SUBCUT DAILY [facility] Stop: 04/06/21 14:30 Last Admin: 04/06/21 08:27 Dose: 30 mg Documented by: Folic Acid (Folic Acid 1 Mg Tab) 1 mg PO DAILY [facility] Last Admin: 04/06/21 08:25 Dose: 1 mg Documented by: Gabapentin (Gabapentin 300 Mg Cap) 300 mg PO BID [facility] Last Admin: 04/06/21 08:25 Dose: 300 mg Documented by: Diltiazem HCl 100 mg/ Sodium (Chloride) 100 mls @ 5 mls/hr IV TITRATE [facility]; Protocol Last Titration: 04/05/21 09:05 Dose: 0 mg/hr, 0 mls/hr Documented by: Insulin Human Lispro (Insulin Lispro 100 Unit/Ml 10 Ml Vial) 0 unit SUBCUT QIDACANDBED [facility]; Protocol Last Admin: 04/06/21 12:28 Dose: 3 unit Documented by: Levothyroxine Sodium (Levothyroxine 50 Mcg Tab) 50 mcg PO DAILY [facility] Last Admin: 04/06/21 08:25 Dose: 50 mcg Documented by: Lorazepam (Lorazepam 2 Mg/Ml Sdv) 1 mg IV Q6H PRN PRN Reason: Nausea/Vomiting Metformin HCl (Metformin 850 Mg Tab) 850 mg PO BIDMEALS [facility] Metoprolol Tartrate (Metoprolol Tartrate 25 Mg Tab) 25 mg PO Q12H [facility] Last Admin: 04/06/21 04:02 Dose: 25 mg Documented by: Miscellaneous Information (Remove Patch Nicotine) 1 ea TRDERM DAILY [facility] Last Admin: 04/06/21 08:28 Dose: 1 ea Documented by: Nicotine (Nicotine 14 Mg/24 Hr Patch) 14 mg TRDERM DAILY [facility] Last Admin: 04/06/21 08:27 Dose: 14 mg Documented by: Nortriptyline HCl (Nortriptyline 25 Mg Cap) 75 mg PO BEDTIME [facility] Prochlorperazine Maleate (Prochlorperazine 5 Mg Tab) 10 mg PO QID PRN PRN Reason: Vomiting Sertraline HCl (Sertraline 50 Mg Tab) 50 mg PO DAILY [facility] Last Admin: 04/06/21 08:25 Dose: 50 mg Documented by: Sodium Chloride (Sodium Chloride 0.9% 10 Ml Syringe) 10 ml FLUSH ASDIRECTED PRN PRN Reason: Keep Vein Open Last Admin: 04/04/21 16:08 Dose: 10 ml Documented by: Discontinued Medications Dexamethasone (Dexamethasone 4 Mg Tab) 2 mg PO DAILY [facility] Last Admin: 04/05/21 09:30 Dose: Not Given Documented by: Diltiazem HCl (Diltiazem 50 Mg/10 Ml Sdv) 20 mg IVPUSH ONETIME ONE Stop: 04/04/21 15:59 Last Admin: 04/04/21 16:08 Dose: 20 mg Documented by: Diltiazem HCl 5 mg/ Sodium (Chloride) 100 mls @ 5 mls/hr IV ASDIRECTED [facility] Metoprolol Tartrate (Metoprolol Tartrate 5 Mg/5 Ml Sdv) 5 mg IVPUSH ONETIME ONE Stop: 04/05/21 11:38 Last Admin: 04/05/21 11:56 Dose: 5 mg Documented by: Nortriptyline HCl (Nortriptyline 25 Mg Cap) 25 mg PO BEDTIME [facility] Last Admin: 04/05/21 19:59 Dose: 25 mg Documented by: - Exam Central Line Total Time: 1Days 22Hours General: Alert, Oriented, Cooperative, No Acute Distress HEENT: Mucous Membr. Moist/[place] Neck: Supple Lungs: Clear to Auscultation, Normal Respiratory Effort Cardiovascular: No Murmurs, Irregular Rhythm, Tachycardia, Other GI/Abdominal Exam: Normal Bowel Sounds, Soft, Non-Tender (Male) Exam: Deferred Back Exam: Normal Inspection, Full Range of Motion Extremities: Normal Inspection, Normal Range of Motion, Non-Tender, No Pedal Edema, Normal Capillary Refill Skin: Warm, Dry, Intact Neurological: No New Focal Deficit Psy/Mental Status: Alert, Normal Affect, Normal Mood - Patient Data Lab Results Last 24 hrs: Laboratory Results - last 24 hr 04/05/21 04/05/21 04/06/21 Range/Units 17:07 21:44 04:05 WBC 3.26 L (4.23-9.07) K/mm3 RBC 3.84 L (4.63-6.08) M/mm3 Hgb 11.6 L (13.7-17.5) gm/dl Hct 35.6 L (40.1-51.0) % MCV 92.7 H (79.0-92.2) fl MCH 30.2 (25.7-32.2) pg MCHC 32.6 (32.2-35.5) g/dl RDW Std Deviation 58.7 H (35.1-43.9) fL Plt Count 100 L (163-337) K/mm3 MPV 9.5 (9.4-12.3) fl Neut % (Auto) 52.7 (34.0-67.9) % Lymph % (Auto) 35.3 (21.8-53.1) % [place] % (Auto) 8.0 (5.3-12.2) % Eos % (Auto) 3.1 (0.8-7.0) Baso % (Auto) 0.6 (0.1-1.2) % Neut # (Auto) 1.72 L (1.78-5.38) K/mm3 Lymph # (Auto) 1.15 L (1.32-3.57) K/mm3 [place] # (Auto) 0.26 L (0.30-0.82) K/mm3 Eos # (Auto) 0.10 (0.04-0.54) K/mm3 Baso # (Auto) 0.02 (0.01-0.08) K/mm3 Sodium (136-145) mEq/L Potassium (3.5-5.1) mEq/L Chloride (98-107) mEq/L Carbon Dioxide (21-32) mEq/L Anion Gap (5-15) BUN (7-18) mg/dL Creatinine (0.7-1.3) mg/dL Est Cr Clr Drug Dosing mL/min Estimated GFR (MDRD) (>60) mL/min BUN/Creatinine Ratio (14-18) Glucose (70-99) mg/dL POC Glucose 283 H 343 H (70-99) mg/dL Calcium (8.5-10.1) mg/dL Total Bilirubin (0.2-1.0) mg/dL AST (15-37) U/L ALT (16-63) U/L Alkaline Phosphatase (46-116) U/L Total Protein (6.4-8.2) g/dl Albumin (3.4-5.0) g/dl Globulin gm/dL Albumin/Globulin Ratio (1-2) 04/06/21 04/06/21 04/06/21 Range/Units 04:05 06:07 12:22 WBC (4.23-9.07) K/mm3 RBC (4.63-6.08) M/mm3 Hgb (13.7-17.5) gm/dl Hct (40.1-51.0) % MCV (79.0-92.2) fl MCH (25.7-32.2) pg MCHC (32.2-35.5) g/dl RDW Std Deviation (35.1-43.9) fL Plt Count (163-337) K/mm3 MPV (9.4-12.3) fl Neut % (Auto) (34.0-67.9) % Lymph % (Auto) (21.8-53.1) % [place] % (Auto) (5.3-12.2) % Eos % (Auto) (0.8-7.0) Baso % (Auto) (0.1-1.2) % Neut # (Auto) (1.78-5.38) K/mm3 Lymph # (Auto) (1.32-3.57) K/mm3 [place] # (Auto) (0.30-0.82) K/mm3 Eos # (Auto) (0.04-0.54) K/mm3 Baso # (Auto) (0.01-0.08) K/mm3 Sodium 141 (136-145) mEq/L Potassium 4.3 (3.5-5.1) mEq/L Chloride 106 (98-107) mEq/L Carbon Dioxide 24 (21-32) mEq/L Anion Gap 15.3 H (5-15) BUN 17 (7-18) mg/dL Creatinine 1.0 (0.7-1.3) mg/dL Est Cr Clr Drug Dosing 102.47 mL/min Estimated GFR (MDRD) > 60 (>60) mL/min BUN/Creatinine Ratio 17.0 (14-18) Glucose 199 H (70-99) mg/dL POC Glucose 180 H 282 H (70-99) mg/dL Calcium 8.9 (8.5-10.1) mg/dL Total Bilirubin 0.2 (0.2-1.0) mg/dL AST 11 L (15-37) U/L ALT 23 (16-63) U/L Alkaline Phosphatase 80 (46-116) U/L Total Protein 7.0 (6.4-8.2) g/dl Albumin 3.0 L (3.4-5.0) g/dl Globulin 4.0 gm/dL Albumin/Globulin Ratio 0.8 L (1-2) Result Diagrams: 04/06/21 04:05 04/06/21 04:05 Sepsis Event Note - Evaluation Sepsis Screening Result: No Definite Risk - Focused Exam Vital Signs: Vital Signs Temp Pulse Resp BP BP Pulse Ox 04/06/21 12:27 143 H 100/59 L 04/06/21 10:05 145 H 04/06/21 08:16 109/77 04/06/21 08:15 97.5 F 121 H 16 109/77 94 L 04/06/21 04:02 118 H 118/64 04/06/21 04:00 98.3 F 105 H 16 118/64 95 - Problem List & Annotations (1) Type 2 diabetes mellitus SNOMED Code(s): 58442669 Code(s): E11.9 - TYPE 2 DIABETES MELLITUS WITHOUT COMPLICATIONS Status: Acute Priority: High Current Visit: Yes Onset Date: ~04/05/21 Annotation/Comment:: hx of glucocorticoid use due to chemo/colon cancer (2) Atrial flutter SNOMED Code(s): 2179595 Code(s): I48.92 - UNSPECIFIED ATRIAL FLUTTER Status: Acute Priority: High Current Visit: Yes Onset Date: ~04/04/21 Qualifiers: Atrial flutter type: unspecified Qualified Code(s): I48.92 - Unspecified atrial flutter (3) Colon cancer SNOMED Code(s): 813030440 Code(s): C18.9 - MALIGNANT NEOPLASM OF COLON, UNSPECIFIED Status: Acute Priority: Medium Current Visit: Yes Onset Date: ~04/04/21 Qualifiers: Colon location: descending Qualified Code(s): C18.6 - Malignant neoplasm of descending colon (4) History of recent chemotherapy SNOMED Code(s): 932372077 Code(s): KZQ1584 - Status: Acute Priority: Medium Current Visit: Yes Onset Date: ~04/04/21 (5) Hypotension SNOMED Code(s): 73937344 Code(s): I95.9 - HYPOTENSION, UNSPECIFIED Status: Acute Priority: Medium Current Visit: Yes Onset Date: ~04/04/21 Qualifiers: Hypotension type: orthostatic hypotension Qualified Code(s): I95.1 - Orthostatic hypotension - Problem List Review Problem List Initiated/Reviewed/Updated: Yes - My Orders Last 24 Hours: My Active Orders 04/06/21 14:15 Consult to Auto Radiator Mechanic [CONS] Routine 04/06/21 17:00 metFORMIN [Glucophage] 850 mg PO BIDMEALS 04/07/21 09:00 Apixaban [Eliquis] 2.5 mg PO DAILY - Plan Plan:: 04/04/21 assess: 1/// a flutter /fib rvr on cardizem drip and will likely add beta ruby if rate control not acheived. risk factors chemo/dehydration/etoh?/hypertensive cv disease. ? triggered by i.v. therapy. rule out other cardiac issues echo as o.p. repeat mg ca and k in am . no evidence of pulm issues and sats stable on room air. 2/// colon ca : monitor chemo affects. eating and report only neuropathy and fatigue. side effects. dehydration recheck orthostatic b.p. 3/// chemo 4///neuropathy : on second to last chemo treatment. plan i.v cardizem and monitor icu boh 04/05/2021 Assessment: Jamar is a 55yo male with PMH of colon cancer s/p chemotherapy t reatment admitted for atrial flutter with RVR, new onset diabetes s/p steroid use for chemo/colon cancer. 1. a flutter/fib w/ RVR on oral cardizem and oral metoprolol, will continue to monitor dosing to achieve rate control 2. colon cancer s/p chemotherapy treatment 3. persistent hyperglycemia, diabetes secondary to steroid use for chemo/colon cancer 4. pancytopenia Plan: 1. continue medications to achieve rate control, titrate dose as needed, may add meds if rate control not achieved 2. d/c lovenox, begin eliquis for VTE prophylaxis 04/07/2021 am at 2.5mg/day as platelet count at 100,000 s/p cancer/chemo 3. begin metformin 850mg BID as tolerated 4. discussed smoking cessation as a solution for uncontrolled rate/rhythm 5. discussed hyperglycemia/diabetes as a cause for uncontrolled rate/rhythm, patient noted understanding 6. plan to d/c 04/07/2021 if rate and hypotension are controlled 7. plan to follow up with outpatient echocardiogram
[2021-04-06] MEDS ORDERED: Diltiazem 120 MG Cap.CD PO ONE (15:07)
[2021-04-06] MEDS: Nortriptyline 25 MG Cap PO SCH (19:59)
[2021-04-06] MEDS: Bisacodyl 5 MG Tab PO SCH (20:00)
[2021-04-07] MEDS: Metoprolol Tartrate 25 MG Tab PO SCH ×2 (04:04→17:25)
[2021-04-07] MEDS: Insulin Lispro 100 UNIT/ML 10 ML Vial SUBCUT SCH ×4 (06:00→21:20)
[2021-04-07] MEDS: Diltiazem 120 MG Cap.CD PO SCH ×2 (08:54→09:05)
[2021-04-07] MEDS: Levothyroxine 50 MCG Tab PO SCH (08:54)
[2021-04-07] MEDS: Docusate Sodium 100 MG Cap PO SCH ×2 (09:00→21:06)
[2021-04-07] MEDS ORDERED: Apixaban 5 MG Tab PO SCH (09:00)
[2021-04-07] MEDS: Gabapentin 300 MG Cap PO SCH ×2 (09:00→21:07)
[2021-04-07] MEDS: Sertraline 50 MG Tab PO SCH (09:00)
[2021-04-07] MEDS: Nicotine 14 MG/24 Hr Patch TRDERM SCH (09:06)
[2021-04-07] MEDS: Folic Acid 1 MG Tab PO SCH (09:06)
--- NOTE | 2021-04-07 10:29 | PCM.PN ---
- General Info Date of Service: 04/07/21 Admission Dx/Problem (Free Text): Admission Diagnosis/Problem Admission Diagnosis/Problem Atrial fibrillation with rapid ventricular response Subjective Update: Patient denies chest pain denies SOB tolerating diet discussed echo; ok with getting echo today patient states he cant afford eliquis request transition to warfarin - Patient Data Vitals - Most Recent: Last Vital Signs Temp 98.2 F 04/07/21 08:00 Pulse 84 04/07/21 09:05 Resp 16 04/07/21 08:00 BP 100/62 04/07/21 09:05 Pulse Ox 96 04/07/21 08:00 Weight - Most Recent: 229 lb 12.8 oz I&O - Last 24 Hours: Intake & Output 04/06/21 04/07/21 04/07/21 22:59 06:59 14:59 Intake Total 1120 1000 Balance 1120 1000 Lab Results Last 24 Hours: Laboratory Results - last 24 hr 04/06/21 04/06/21 04/06/21 Range/Units 12:22 18:00 21:09 WBC (4.23-9.07) K/mm3 RBC (4.63-6.08) M/mm3 Hgb (13.7-17.5) gm/dl Hct (40.1-51.0) % MCV (79.0-92.2) fl MCH (25.7-32.2) pg MCHC (32.2-35.5) g/dl RDW Std Deviation (35.1-43.9) fL Plt Count (163-337) K/mm3 MPV (9.4-12.3) fl Neut % (Auto) (34.0-67.9) % Lymph % (Auto) (21.8-53.1) % [place] % (Auto) (5.3-12.2) % Eos % (Auto) (0.8-7.0) Baso % (Auto) (0.1-1.2) % Neut # (Auto) (1.78-5.38) K/mm3 Lymph # (Auto) (1.32-3.57) K/mm3 [place] # (Auto) (0.30-0.82) K/mm3 Eos # (Auto) (0.04-0.54) K/mm3 Baso # (Auto) (0.01-0.08) K/mm3 Sodium (136-145) mEq/L Potassium (3.5-5.1) mEq/L Chloride (98-107) mEq/L Carbon Dioxide (21-32) mEq/L Anion Gap (5-15) BUN (7-18) mg/dL Creatinine (0.7-1.3) mg/dL Est Cr Clr Drug Dosing mL/min Estimated GFR (MDRD) (>60) mL/min BUN/Creatinine Ratio (14-18) Glucose (70-99) mg/dL POC Glucose 282 H 283 H 279 H (70-99) mg/dL Calcium (8.5-10.1) mg/dL Magnesium (1.8-2.4) mg/dL Total Bilirubin (0.2-1.0) mg/dL AST (15-37) U/L ALT (16-63) U/L Alkaline Phosphatase (46-116) U/L NT-Pro-B Natriuret Pep (0-125) pg/mL Total Protein (6.4-8.2) g/dl Albumin (3.4-5.0) g/dl Globulin gm/dL Albumin/Globulin Ratio (1-2) 04/07/21 04/07/21 04/07/21 Range/Units 04:05 04:05 04:05 WBC 3.73 L (4.23-9.07) K/mm3 RBC 3.75 L (4.63-6.08) M/mm3 Hgb 11.3 L (13.7-17.5) gm/dl Hct 34.5 L (40.1-51.0) % MCV 92.0 (79.0-92.2) fl MCH 30.1 (25.7-32.2) pg MCHC 32.8 (32.2-35.5) g/dl RDW Std Deviation 57.7 H (35.1-43.9) fL Plt Count 107 L (163-337) K/mm3 MPV 10.1 (9.4-12.3) fl Neut % (Auto) 46.6 (34.0-67.9) % Lymph % (Auto) 38.9 (21.8-53.1) % [place] % (Auto) 10.5 (5.3-12.2) % Eos % (Auto) 3.2 (0.8-7.0) Baso % (Auto) 0.5 (0.1-1.2) % Neut # (Auto) 1.74 L (1.78-5.38) K/mm3 Lymph # (Auto) 1.45 (1.32-3.57) K/mm3 [place] # (Auto) 0.39 (0.30-0.82) K/mm3 Eos # (Auto) 0.12 (0.04-0.54) K/mm3 Baso # (Auto) 0.02 (0.01-0.08) K/mm3 Sodium 137 (136-145) mEq/L Potassium 4.3 (3.5-5.1) mEq/L Chloride 101 (98-107) mEq/L Carbon Dioxide 26 (21-32) mEq/L Anion Gap 14.3 (5-15) BUN 19 H (7-18) mg/dL Creatinine 1.1 (0.7-1.3) mg/dL Est Cr Clr Drug Dosing 93.16 mL/min Estimated GFR (MDRD) > 60 (>60) mL/min BUN/Creatinine Ratio 17.3 (14-18) Glucose 252 H (70-99) mg/dL POC Glucose (70-99) mg/dL Calcium 8.4 L (8.5-10.1) mg/dL Magnesium 1.7 L (1.8-2.4) mg/dL Total Bilirubin 0.2 (0.2-1.0) mg/dL AST 11 L (15-37) U/L ALT 19 (16-63) U/L Alkaline Phosphatase 77 (46-116) U/L NT-Pro-B Natriuret Pep (0-125) pg/mL Total Protein 7.1 (6.4-8.2) g/dl Albumin 2.9 L (3.4-5.0) g/dl Globulin 4.2 gm/dL Albumin/Globulin Ratio 0.7 L (1-2) 04/07/21 04/07/21 Range/Units 04:05 05:56 WBC (4.23-9.07) K/mm3 RBC (4.63-6.08) M/mm3 Hgb (13.7-17.5) gm/dl Hct (40.1-51.0) % MCV (79.0-92.2) fl MCH (25.7-32.2) pg MCHC (32.2-35.5) g/dl RDW Std Deviation (35.1-43.9) fL Plt Count (163-337) K/mm3 MPV (9.4-12.3) fl Neut % (Auto) (34.0-67.9) % Lymph % (Auto) (21.8-53.1) % [place] % (Auto) (5.3-12.2) % Eos % (Auto) (0.8-7.0) Baso % (Auto) (0.1-1.2) % Neut # (Auto) (1.78-5.38) K/mm3 Lymph # (Auto) (1.32-3.57) K/mm3 [place] # (Auto) (0.30-0.82) K/mm3 Eos # (Auto) (0.04-0.54) K/mm3 Baso # (Auto) (0.01-0.08) K/mm3 Sodium (136-145) mEq/L Potassium (3.5-5.1) mEq/L Chloride (98-107) mEq/L Carbon Dioxide (21-32) mEq/L Anion Gap (5-15) BUN (7-18) mg/dL Creatinine (0.7-1.3) mg/dL Est Cr Clr Drug Dosing mL/min Estimated GFR (MDRD) (>60) mL/min BUN/Creatinine Ratio (14-18) Glucose (70-99) mg/dL POC Glucose 224 H (70-99) mg/dL Calcium (8.5-10.1) mg/dL Magnesium (1.8-2.4) mg/dL Total Bilirubin (0.2-1.0) mg/dL AST (15-37) U/L ALT (16-63) U/L Alkaline Phosphatase (46-116) U/L NT-Pro-B Natriuret Pep 489 H (0-125) pg/mL Total Protein (6.4-8.2) g/dl Albumin (3.4-5.0) g/dl Globulin gm/dL Albumin/Globulin Ratio (1-2) Jordon Results Last 24 Hours: Microbiology 04/05/21 09:00 Blood Culture - Preliminary Blood - Port-A-Cath Med Orders - Current: Current Medications Acetaminophen (Acetaminophen 325 Mg Tab) 650 mg PO Q4H PRN PRN Reason: Pain (Mild 1-3)/fever Apixaban (Apixaban 5 Mg Tab) 2.5 mg PO DAILY [facility] Last Admin: 04/07/21 09:01 Dose: 2.5 mg Documented by: Bisacodyl (Bisacodyl 5 Mg Tab) 5 mg PO BEDTIME [facility] Last Admin: 04/06/21 20:00 Dose: Not Given Documented by: Diltiazem HCl (Diltiazem 120 Mg Cap.Cd) 120 mg PO DAILY [facility] Last Admin: 04/07/21 09:05 Dose: 120 mg Documented by: Docusate Sodium (Docusate Sodium 100 Mg Cap) 100 mg PO BID [facility] Last Admin: 04/07/21 09:00 Dose: 100 mg Documented by: Folic Acid (Folic Acid 1 Mg Tab) 1 mg PO DAILY [facility] Last Admin: 04/07/21 09:06 Dose: 1 mg Documented by: Gabapentin (Gabapentin 300 Mg Cap) 300 mg PO BID [facility] Last Admin: 04/07/21 09:00 Dose: 300 mg Documented by: Diltiazem HCl 100 mg/ Sodium (Chloride) 100 mls @ 5 mls/hr IV TITRATE [facility]; Protocol Last Titration: 04/05/21 09:05 Dose: 0 mg/hr, 0 mls/hr Documented by: Insulin Human Lispro (Insulin Lispro 100 Unit/Ml 10 Ml Vial) 0 unit SUBCUT QIDACANDBED [facility]; Protocol Last Admin: 04/07/21 06:00 Dose: 2 unit Documented by: Levothyroxine Sodium (Levothyroxine 50 Mcg Tab) 50 mcg PO DAILY [facility] Last Admin: 04/07/21 08:54 Dose: 50 mcg Documented by: Lorazepam (Lorazepam 2 Mg/Ml Sdv) 1 mg IV Q6H PRN PRN Reason: Nausea/Vomiting Metformin HCl (Metformin 500 Mg Tab) 1,000 mg PO BIDMEALS [facility] Metoprolol Tartrate (Metoprolol Tartrate 25 Mg Tab) 25 mg PO Q12H [facility] Last Admin: 04/07/21 04:04 Dose: 25 mg Documented by: Miscellaneous Information (Remove Patch Nicotine) 1 ea TRDERM DAILY [facility] Last Admin: 04/06/21 08:28 Dose: 1 ea Documented by: Nicotine (Nicotine 14 Mg/24 Hr Patch) 14 mg TRDERM DAILY [facility] Last Admin: 04/07/21 09:06 Dose: 14 mg Documented by: Nortriptyline HCl (Nortriptyline 25 Mg Cap) 75 mg PO BEDTIME [facility] Last Admin: 04/06/21 19:59 Dose: 75 mg Documented by: Prochlorperazine Maleate (Prochlorperazine 5 Mg Tab) 10 mg PO QID PRN PRN Reason: Vomiting Sertraline HCl (Sertraline 50 Mg Tab) 50 mg PO DAILY [facility] Last Admin: 04/07/21 09:00 Dose: 50 mg Documented by: Sodium Chloride (Sodium Chloride 0.9% 10 Ml Syringe) 10 ml FLUSH ASDIRECTED PRN PRN Reason: Keep Vein Open Last Admin: 04/04/21 16:08 Dose: 10 ml Documented by: Discontinued Medications Dexamethasone (Dexamethasone 4 Mg Tab) 2 mg PO DAILY [facility] Last Admin: 04/05/21 09:30 Dose: Not Given Documented by: Diltiazem HCl (Diltiazem 50 Mg/10 Ml Sdv) 20 mg IVPUSH ONETIME ONE Stop: 04/04/21 15:59 Last Admin: 04/04/21 16:08 Dose: 20 mg Documented by: Diltiazem HCl (Diltiazem 120 Mg Cap.Cd) 120 mg PO ONETIME ONE Stop: 04/06/21 15:08 Last Admin: 04/06/21 15:17 Dose: 120 mg Documented by: Enoxaparin Sodium (Enoxaparin 30 Mg/0.3 Ml Syringe) 30 mg SUBCUT DAILY [facility] Stop: 04/06/21 14:30 Last Admin: 04/06/21 08:27 Dose: 30 mg Documented by: Diltiazem HCl 5 mg/ Sodium (Chloride) 100 mls @ 5 mls/hr IV ASDIRECTED [facility] Metformin HCl (Metformin 850 Mg Tab) 850 mg PO BIDMEALS [facility] Last Admin: 04/07/21 06:00 Dose: 850 mg Documented by: Metoprolol Tartrate (Metoprolol Tartrate 5 Mg/5 Ml Sdv) 5 mg IVPUSH ONETIME ONE Stop: 04/05/21 11:38 Last Admin: 04/05/21 11:56 Dose: 5 mg Documented by: Nortriptyline HCl (Nortriptyline 25 Mg Cap) 25 mg PO BEDTIME [facility] Last Admin: 04/05/21 19:59 Dose: 25 mg Documented by: - Exam Central Line Total Time: 2Days 20Hours General: Alert, Oriented HEENT: EOMI, Mucous Membr. Moist/Juda Neck: Supple Lungs: Clear to Auscultation, Normal Respiratory Effort Cardiovascular: Irregular Rhythm, Other GI/Abdominal Exam: Soft, Non-Tender Skin: Warm, Dry, Intact Neurological: No New Focal Deficit Psy/Mental Status: Alert, Other (Flat affect) - Patient Data Lab Results Last 24 hrs: Laboratory Results - last 24 hr 04/06/21 04/06/21 04/06/21 Range/Units 12:22 18:00 21:09 WBC (4.23-9.07) K/mm3 RBC (4.63-6.08) M/mm3 Hgb (13.7-17.5) gm/dl Hct (40.1-51.0) % MCV (79.0-92.2) fl MCH (25.7-32.2) pg MCHC (32.2-35.5) g/dl RDW Std Deviation (35.1-43.9) fL Plt Count (163-337) K/mm3 MPV (9.4-12.3) fl Neut % (Auto) (34.0-67.9) % Lymph % (Auto) (21.8-53.1) % [place] % (Auto) (5.3-12.2) % Eos % (Auto) (0.8-7.0) Baso % (Auto) (0.1-1.2) % Neut # (Auto) (1.78-5.38) K/mm3 Lymph # (Auto) (1.32-3.57) K/mm3 [place] # (Auto) (0.30-0.82) K/mm3 Eos # (Auto) (0.04-0.54) K/mm3 Baso # (Auto) (0.01-0.08) K/mm3 Sodium (136-145) mEq/L Potassium (3.5-5.1) mEq/L Chloride (98-107) mEq/L Carbon Dioxide (21-32) mEq/L Anion Gap (5-15) BUN (7-18) mg/dL Creatinine (0.7-1.3) mg/dL Est Cr Clr Drug Dosing mL/min Estimated GFR (MDRD) (>60) mL/min BUN/Creatinine Ratio (14-18) Glucose (70-99) mg/dL POC Glucose 282 H 283 H 279 H (70-99) mg/dL Calcium (8.5-10.1) mg/dL Magnesium (1.8-2.4) mg/dL Total Bilirubin (0.2-1.0) mg/dL AST (15-37) U/L ALT (16-63) U/L Alkaline Phosphatase (46-116) U/L NT-Pro-B Natriuret Pep (0-125) pg/mL Total Protein (6.4-8.2) g/dl Albumin (3.4-5.0) g/dl Globulin gm/dL Albumin/Globulin Ratio (1-2) 04/07/21 04/07/21 04/07/21 Range/Units 04:05 04:05 04:05 WBC 3.73 L (4.23-9.07) K/mm3 RBC 3.75 L (4.63-6.08) M/mm3 Hgb 11.3 L (13.7-17.5) gm/dl Hct 34.5 L (40.1-51.0) % MCV 92.0 (79.0-92.2) fl MCH 30.1 (25.7-32.2) pg MCHC 32.8 (32.2-35.5) g/dl RDW Std Deviation 57.7 H (35.1-43.9) fL Plt Count 107 L (163-337) K/mm3 MPV 10.1 (9.4-12.3) fl Neut % (Auto) 46.6 (34.0-67.9) % Lymph % (Auto) 38.9 (21.8-53.1) % [place] % (Auto) 10.5 (5.3-12.2) % Eos % (Auto) 3.2 (0.8-7.0) Baso % (Auto) 0.5 (0.1-1.2) % Neut # (Auto) 1.74 L (1.78-5.38) K/mm3 Lymph # (Auto) 1.45 (1.32-3.57) K/mm3 [place] # (Auto) 0.39 (0.30-0.82) K/mm3 Eos # (Auto) 0.12 (0.04-0.54) K/mm3 Baso # (Auto) 0.02 (0.01-0.08) K/mm3 Sodium 137 (136-145) mEq/L Potassium 4.3 (3.5-5.1) mEq/L Chloride 101 (98-107) mEq/L Carbon Dioxide 26 (21-32) mEq/L Anion Gap 14.3 (5-15) BUN 19 H (7-18) mg/dL Creatinine 1.1 (0.7-1.3) mg/dL Est Cr Clr Drug Dosing 93.16 mL/min Estimated GFR (MDRD) > 60 (>60) mL/min BUN/Creatinine Ratio 17.3 (14-18) Glucose 252 H (70-99) mg/dL POC Glucose (70-99) mg/dL Calcium 8.4 L (8.5-10.1) mg/dL Magnesium 1.7 L (1.8-2.4) mg/dL Total Bilirubin 0.2 (0.2-1.0) mg/dL AST 11 L (15-37) U/L ALT 19 (16-63) U/L Alkaline Phosphatase 77 (46-116) U/L NT-Pro-B Natriuret Pep (0-125) pg/mL Total Protein 7.1 (6.4-8.2) g/dl Albumin 2.9 L (3.4-5.0) g/dl Globulin 4.2 gm/dL Albumin/Globulin Ratio 0.7 L (1-2) 04/07/21 04/07/21 Range/Units 04:05 05:56 WBC (4.23-9.07) K/mm3 RBC (4.63-6.08) M/mm3 Hgb (13.7-17.5) gm/dl Hct (40.1-51.0) % MCV (79.0-92.2) fl MCH (25.7-32.2) pg MCHC (32.2-35.5) g/dl RDW Std Deviation (35.1-43.9) fL Plt Count (163-337) K/mm3 MPV (9.4-12.3) fl Neut % (Auto) (34.0-67.9) % Lymph % (Auto) (21.8-53.1) % [place] % (Auto) (5.3-12.2) % Eos % (Auto) (0.8-7.0) Baso % (Auto) (0.1-1.2) % Neut # (Auto) (1.78-5.38) K/mm3 Lymph # (Auto) (1.32-3.57) K/mm3 [place] # (Auto) (0.30-0.82) K/mm3 Eos # (Auto) (0.04-0.54) K/mm3 Baso # (Auto) (0.01-0.08) K/mm3 Sodium (136-145) mEq/L Potassium (3.5-5.1) mEq/L Chloride (98-107) mEq/L Carbon Dioxide (21-32) mEq/L Anion Gap (5-15) BUN (7-18) mg/dL Creatinine (0.7-1.3) mg/dL Est Cr Clr Drug Dosing mL/min Estimated GFR (MDRD) (>60) mL/min BUN/Creatinine Ratio (14-18) Glucose (70-99) mg/dL POC Glucose 224 H (70-99) mg/dL Calcium (8.5-10.1) mg/dL Magnesium (1.8-2.4) mg/dL Total Bilirubin (0.2-1.0) mg/dL AST (15-37) U/L ALT (16-63) U/L Alkaline Phosphatase (46-116) U/L NT-Pro-B Natriuret Pep 489 H (0-125) pg/mL Total Protein (6.4-8.2) g/dl Albumin (3.4-5.0) g/dl Globulin gm/dL Albumin/Globulin Ratio (1-2) Result Diagrams: 04/07/21 04:05 04/07/21 04:05 Jordon Results Last 24 hrs: Microbiology 04/05/21 09:00 Blood Culture - Preliminary Blood - Port-A-Cath Sepsis Event Note - Evaluation Sepsis Screening Result: No Definite Risk - Focused Exam Vital Signs: Vital Signs Temp Pulse Resp BP BP Pulse Ox 04/07/21 09:05 84 100/62 04/07/21 08:00 98.2 F 84 16 100/62 96 04/07/21 04:04 92 106/68 04/07/21 03:58 97.0 F 72 15 106/68 94 L 04/07/21 00:00 97 F 68 16 106/67 95 - Problem List Review Problem List Initiated/Reviewed/Updated: Yes - My Orders Last 24 Hours: My Active Orders 04/07/21 12:00 Echo Comp wo Cont [US] Routine 04/07/21 17:00 metFORMIN [Glucophage] 1,000 mg PO BIDMEALS - Plan Plan:: 04/04/21 assess: 1/// a flutter /fib rvr on cardizem drip and will likely add beta ruby if rate control not acheived. risk factors chemo/dehydration/etoh?/hypertensive cv disease. ? triggered by i.v. therapy. rule out other cardiac issues echo as o.p. repeat mg ca and k in am . no evidence of pulm issues and sats stable on room air. 2/// colon ca : monitor chemo affects. eating and report only neuropathy and fatigue. side effects. dehydration recheck orthostatic b.p. 3/// chemo 4///neuropathy : on second to last chemo treatment. plan i.v cardizem and monitor icu boh 04/05/2021 Assessment: Jamar is a 55yo male with PMH of colon cancer s/p chemotherapy treatment admitted for atrial flutter with RVR, new onset diabetes s/p steroid use for chemo/colon cancer. 1. a flutter/fib w/ RVR on oral cardizem and oral metoprolol, will continue to monitor dosing to achieve rate control 2. colon cancer s/p chemotherapy treatment 3. persistent hyperglycemia, diabetes secondary to steroid use for chemo/colon cancer 4. pancytopenia Plan: 1. continue medications to achieve rate control, titrate dose as needed, may add meds if rate control not achieved 2. d/c lovenox, begin eliquis for VTE prophylaxis 04/07/2021 am at 2.5mg/day as platelet count at 100,000 s/p cancer/chemo 3. begin metformin 850mg BID as tolerated 4. discussed smoking cessation as a solution for uncontrolled rate/rhythm 5. discussed hyperglycemia/diabetes as a cause for uncontrolled rate/rhythm, patient noted understanding 6. plan to d/c 04/07/2021 if rate and hypotension are controlled 7. plan to follow up with outpatient echocardiogram 04/07/2021 Assessment: Jamar is a 55yo male with PMH of colon cancer s/p chemotherapy treatment admitted for atrial flutter with RVR, new onset diabetes s/p steroid use for chemo/colon cancer. 1. a flutter/fib w/ RVR on oral cardizem and oral metoprolol, will continue to monitor dosing to achieve rate control; RVR has resolved 2. colon cancer s/p chemotherapy treatment 3. persistent hyperglycemia, diabetes secondary to steroid use for chemo/colon cancer 4. pancytopenia Plan: 1. continue medications to achieve rate control, titrate dose as needed, m 2. d/c lovenox, dc eliquis; patient states he can not afford medicatoin -warfarin pharm to dose 3. increase metformin to 1000 mg BID 4. discussed smoking cessation as a solution for uncontrolled rate/rhythm 5. discussed hyperglycemia/diabetes as a cause for uncontrolled rate/rhythm, patient noted understanding 6. plan to d/c 04/08/2021 if rate and hypotension are controlled 7. Echo today 8. monitor BP. some intermittent hypotension; asymptomatic 9. Will need outpatient Cardiology referral and PCP follow up
[2021-04-07] MEDS ORDERED: Magnesium Oxide 400 MG Tab PO ONE (11:30)
[2021-04-07] MEDS: metFORMIN 500 MG Tab PO SCH (17:25)
[2021-04-07] MEDS ORDERED: Metoprolol Tartrate 50 MG Tab PO ONE (17:59)
[2021-04-07] MEDS ORDERED: Warfarin 5 MG Tab PO SCH (18:00)
[2021-04-07] MEDS ORDERED: Metoprolol Tartrate 25 MG Tab PO ONE (18:30)
[2021-04-07] MEDS: Bisacodyl 5 MG Tab PO SCH (21:06)
[2021-04-07] MEDS: Nortriptyline 25 MG Cap PO SCH (21:07)
[2021-04-07] MEDS: Apixaban 2.5 MG Tab PO SCH (21:07)
[2021-04-08] MEDS ORDERED: Metoprolol Tartrate 25 MG Tab PO SCH ×2 (05:00→08:00)
[2021-04-08] MEDS: metFORMIN 500 MG Tab PO SCH (06:00)
[2021-04-08] MEDS: Insulin Lispro 100 UNIT/ML 10 ML Vial SUBCUT SCH ×2 (08:34→13:17)
[2021-04-08] MEDS: Apixaban 2.5 MG Tab PO SCH (08:34)
[2021-04-08] MEDS: Nicotine 14 MG/24 Hr Patch TRDERM SCH (08:34)
[2021-04-08] MEDS: Diltiazem 120 MG Cap.CD PO SCH (08:35)
[2021-04-08] MEDS: Gabapentin 300 MG Cap PO SCH (08:35)
[2021-04-08] MEDS: Levothyroxine 50 MCG Tab PO SCH (08:35)
[2021-04-08] MEDS: Sertraline 50 MG Tab PO SCH (08:35)
[2021-04-08] MEDS: Folic Acid 1 MG Tab PO SCH (08:36)
[2021-04-08] MEDS: Docusate Sodium 100 MG Cap PO SCH (08:39)
--- NOTE | 2021-04-08 11:16 | PCM.DCSUM1 ---
Discharge Summary - Hospital Course HPI Initial Comments: - History of Present Illness FROM DR VELA H&P Initial Comments - Free Text/Narative: 55 year old male presented to e.r. with manuel after i.v infusion for malaise after chemotherapy. feeling dizzy ,no pleurisy,syncope or anginal like pain. found in afib/flutter vent [id number]. on cardizem slowed down but b.p dropped and rate slowed down. currently at 5 and hr 110-120. feels fairly well otherwise. hx of colon ca stage unknown treated with surgical resection followed by chemo.tolerates fairly well gained weight of 20 lbs. ros. 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 works in oil field but unable to drive currently . HOSPITAL SUMMARY Assessment: Jamar is a 55yo male with PMH of colon cancer s/p chemotherapy treatment admitted for atrial flutter with RVR, diabetes s/p steroid use for chemo/colon cancer. 1. a flutter/fib w/ RVR on oral cardizem and oral metoprolol, will continue to monitor dosing to achieve rate control; RVR has resolved 2. colon cancer s/p chemotherapy treatment 3. persistent hyperglycemia, diabetes secondary to steroid use for chemo/colon cancer 4. pancytopenia 5. Medical noncompliance 6. Financial distress 7. Medication noncompliance Plan: 1. continue medications to achieve rate control started on metoprolol and diltiazem; metoprolol increased to 50 mg BID 2. patient started on eliquis; despite cost; patient was given option of of warfarin; but his mother and him elected on eliquis 3. continued metformin 4. discussed smoking cessation as a solution for uncontrolled rate/rhythm 5. lisinopril discontinued 6. Echo completed -LVEF 60% -norval LV diastolic filling -trace MVR, TVR, no regional wall motion abnormalities 7. patient declined outpatient Cardiology referral until he is seen by PCP 8. will need close PCP follow up 9. Case management and SW assisted in providing resources to patient for medication financial assistance Diagnosis: Stroke: No - Discharge Data Discharge Date: 04/08/21 Discharge Disposition: Home, Self-Care 01 Condition: Stable - Referral to Home Health Primary Care Physician: Rex Julian MD - Patient Summary/Data Consults: Consultations 04/05/21 13:22 Consult to Diabetic Nurse Specialist [CONS] Routine 04/06/21 14:15 Consult to Dressmaker Garment Fitter [CONS] Routine - Patient Instructions Diet: Heart Healthy Diet Notify Provider of: Fever, Increased Pain, Nausea and/or Vomiting - Discharge Plan *PRESCRIPTION DRUG MONITORING PROGRAM REVIEWED*: Not Applicable *COPY OF PRESCRIPTION DRUG MONITORING REPORT IN PATIENT JOE: Not Applicable Prescriptions/Med Rec: dilTIAZem HCL [Diltiazem 24Hr ER (Xr)] 120 mg PO DAILY #30 cap.er.deg Apixaban [Eliquis] 5 mg PO BID #60 tablet metFORMIN [Glucophage XR] 500 mg PO BIDMEALS #30 tab.er Metoprolol Tartrate 50 mg PO BID #60 tablet Home Medications: Home Meds Folic Acid 1 mg PO DAILY 10/06/20 [History] Levothyroxine [Synthroid] 50 mcg PO DAILY 10/06/20 [History] Sertraline HCl [Zoloft] 50 mg PO DAILY 10/06/20 [History] Docusate Sodium [Colace] 100 mg PO BID 15 Days #30 cap 10/15/20 [Rx] Gabapentin [Neurontin] 300 mg PO BID cap 10/15/20 [Rx] Nortriptyline 75 mg PO BEDTIME 04/04/21 [History] Prochlorperazine Maleate [Compazine] 10 mg PO QID PRN 04/04/21 [History] bisacodyL [Bisacodyl] 5 mg PO BEDTIME 04/04/21 [History] Apixaban [Eliquis] 5 mg PO BID #60 tablet 04/08/21 [Rx] Metoprolol Tartrate 50 mg PO BID #60 tablet 04/08/21 [Rx] dilTIAZem HCL [Diltiazem 24Hr ER (Xr)] 120 mg PO DAILY #30 cap.er.deg 04/08/21 [Rx] metFORMIN [Glucophage XR] 500 mg PO BIDMEALS #30 tab.er 04/08/21 [Rx] Oxygen Therapy Mode: Room Air Patient Handouts: Apixaban oral tablets, Steps to Quit Smoking Forms: ED Department Discharge Referrals: Rex Julian MD [Primary Care Provider] - 04/15/21 12:20 pm (Please arrive at 12:20) Yves Anton MD [Ordering Only Provider] - (Continue to follow up with Dr. Anton as directed.) - Discharge Summary/Plan Comment DC Time >30 min.: Yes (35 minutes) Total # of Minutes for Discharge Time: 35 minutes - Patient Data Vitals - Most Recent: Last Vital Signs Temp 97.7 F 04/08/21 07:35 Pulse 76 04/08/21 08:35 Resp 16 04/08/21 07:35 BP 103/62 04/08/21 08:35 Pulse Ox 97 04/08/21 07:35 Weight - Most Recent: 223 lb 6.4 oz I&O - Last 24 hours: Intake & Output 04/07/21 04/08/21 04/08/21 22:59 06:59 14:59 Intake Total 1100 400 120 Balance 1100 400 120 Lab Results - Last 24 hrs: Laboratory Results - last 24 hr 04/07/21 04/07/21 04/07/21 Range/Units 12:19 17:22 21:10 WBC (4.23-9.07) K/mm3 RBC (4.63-6.08) M/mm3 Hgb (13.7-17.5) gm/dl Hct (40.1-51.0) % MCV (79.0-92.2) fl MCH (25.7-32.2) pg MCHC (32.2-35.5) g/dl RDW Std Deviation (35.1-43.9) fL Plt Count (163-337) K/mm3 MPV (9.4-12.3) fl Neut % (Auto) (34.0-67.9) % Lymph % (Auto) (21.8-53.1) % [place] % (Auto) (5.3-12.2) % Eos % (Auto) (0.8-7.0) Baso % (Auto) (0.1-1.2) % Neut # (Auto) (1.78-5.38) K/mm3 Lymph # (Auto) (1.32-3.57) K/mm3 [place] # (Auto) (0.30-0.82) K/mm3 Eos # (Auto) (0.04-0.54) K/mm3 Baso # (Auto) (0.01-0.08) K/mm3 Sodium (136-145) mEq/L Potassium (3.5-5.1) mEq/L Chloride (98-107) mEq/L Carbon Dioxide (21-32) mEq/L Anion Gap (5-15) BUN (7-18) mg/dL Creatinine (0.7-1.3) mg/dL Est Cr Clr Drug Dosing mL/min Estimated GFR (MDRD) (>60) mL/min BUN/Creatinine Ratio (14-18) Glucose (70-99) mg/dL POC Glucose 217 H 239 H 233 H (70-99) mg/dL Calcium (8.5-10.1) mg/dL 04/08/21 04/08/21 04/08/21 Range/Units 06:01 08:15 08:15 WBC 5.70 (4.23-9.07) K/mm3 RBC 3.84 L (4.63-6.08) M/mm3 Hgb 11.7 L (13.7-17.5) gm/dl Hct 35.3 L (40.1-51.0) % MCV 91.9 (79.0-92.2) fl MCH 30.5 (25.7-32.2) pg MCHC 33.1 (32.2-35.5) g/dl RDW Std Deviation 59.3 H (35.1-43.9) fL Plt Count 110 L (163-337) K/mm3 MPV 10.4 (9.4-12.3) fl Neut % (Auto) 47.5 (34.0-67.9) % Lymph % (Auto) 37.2 (21.8-53.1) % [place] % (Auto) 11.6 (5.3-12.2) % Eos % (Auto) 3.2 (0.8-7.0) Baso % (Auto) 0.5 (0.1-1.2) % Neut # (Auto) 2.71 (1.78-5.38) K/mm3 Lymph # (Auto) 2.12 (1.32-3.57) K/mm3 [place] # (Auto) 0.66 (0.30-0.82) K/mm3 Eos # (Auto) 0.18 (0.04-0.54) K/mm3 Baso # (Auto) 0.03 (0.01-0.08) K/mm3 Sodium 139 (136-145) mEq/L Potassium 4.6 (3.5-5.1) mEq/L Chloride 104 (98-107) mEq/L Carbon Dioxide 26 (21-32) mEq/L Anion Gap 13.6 (5-15) BUN 22 H (7-18) mg/dL Creatinine 1.3 (0.7-1.3) mg/dL Est Cr Clr Drug Dosing 78.82 mL/min Estimated GFR (MDRD) 57 (>60) mL/min BUN/Creatinine Ratio 16.9 (14-18) Glucose 194 H (70-99) mg/dL POC Glucose 217 H (70-99) mg/dL Calcium 9.0 (8.5-10.1) mg/dL JOHN Results - Last 24 hrs: Microbiology 04/05/21 09:00 Blood Culture - Preliminary Blood - Port-A-Cath Med Orders - Current: Current Medications Acetaminophen (Acetaminophen 325 Mg Tab) 650 mg PO Q4H PRN PRN Reason: Pain (Mild 1-3)/fever Apixaban (Apixaban 5 Mg Tab) 5 mg PO BID [facility] Bisacodyl (Bisacodyl 5 Mg Tab) 5 mg PO BEDTIME [facility] Last Admin: 04/07/21 21:06 Dose: 5 mg Documented by: Diltiazem HCl (Diltiazem 120 Mg Cap.Cd) 120 mg PO DAILY [facility] Last Admin: 04/08/21 08:35 Dose: 120 mg Documented by: Docusate Sodium (Docusate Sodium 100 Mg Cap) 100 mg PO BID [facility] Last Admin: 04/08/21 08:39 Dose: Not Given Documented by: Folic Acid (Folic Acid 1 Mg Tab) 1 mg PO DAILY [facility] Last Admin: 04/08/21 08:36 Dose: 1 mg Documented by: Gabapentin (Gabapentin 300 Mg Cap) 300 mg PO BID [facility] Last Admin: 04/08/21 08:35 Dose: 300 mg Documented by: Diltiazem HCl 100 mg/ Sodium (Chloride) 100 mls @ 5 mls/hr IV TITRATE JOSHUA; Protocol Last Titration: 04/05/21 09:05 Dose: 0 mg/hr, 0 mls/hr Documented by: Insulin Human Lispro (Insulin Lispro 100 Unit/Ml 10 Ml Vial) 0 unit SUBCUT QIDACANDBED [facility]; Protocol Last Admin: 04/08/21 08:34 Dose: 2 units Documented by: Levothyroxine Sodium (Levothyroxine 50 Mcg Tab) 50 mcg PO DAILY [facility] Last Admin: 04/08/21 08:35 Dose: 50 mcg Documented by: Lorazepam (Lorazepam 2 Mg/Ml Sdv) 1 mg IV Q6H PRN PRN Reason: Nausea/Vomiting Metformin HCl (Metformin 500 Mg Tab) 1,000 mg PO BIDMEALS [facility] Last Admin: 04/08/21 06:00 Dose: 1,000 mg Documented by: Metoprolol Tartrate (Metoprolol Tartrate 25 Mg Tab) 50 mg PO Q12H [facility] Last Admin: 04/08/21 08:35 Dose: 50 mg Documented by: Miscellaneous Information (Remove Patch Nicotine) 1 ea TRDERM DAILY [facility] Last Admin: 04/08/21 08:38 Dose: 1 ea Documented by: Nicotine (Nicotine 14 Mg/24 Hr Patch) 14 mg TRDERM DAILY [facility] Last Admin: 04/08/21 08:34 Dose: 14 mg Documented by: Nortriptyline HCl (Nortriptyline 25 Mg Cap) 75 mg PO BEDTIME [facility] Last Admin: 04/07/21 21:07 Dose: 75 mg Documented by: Prochlorperazine Maleate (Prochlorperazine 5 Mg Tab) 10 mg PO QID PRN PRN Reason: Vomiting Sertraline HCl (Sertraline 50 Mg Tab) 50 mg PO DAILY [facility] Last Admin: 04/08/21 08:35 Dose: 50 mg Documented by: Sodium Chloride (Sodium Chloride 0.9% 10 Ml Syringe) 10 ml FLUSH ASDIRECTED PRN PRN Reason: Keep Vein Open Last Admin: 04/04/21 16:08 Dose: 10 ml Documented by: Discontinued Medications Apixaban (Apixaban 5 Mg Tab) 2.5 mg PO DAILY [facility] Last Admin: 04/07/21 09:01 Dose: 2.5 mg Documented by: Apixaban (Apixaban 2.5 Mg Tab) 2.5 mg PO BID [facility] Last Admin: 04/08/21 08:34 Dose: 2.5 mg Documented by: Dexamethasone (Dexamethasone 4 Mg Tab) 2 mg PO DAILY [facility] Last Admin: 04/05/21 09:30 Dose: Not Given Documented by: Diltiazem HCl (Diltiazem 50 Mg/10 Ml Sdv) 20 mg IVPUSH ONETIME ONE Stop: 04/04/21 15:59 Last Admin: 04/04/21 16:08 Dose: 20 mg Documented by: Diltiazem HCl (Diltiazem 120 Mg Cap.Cd) 120 mg PO ONETIME ONE Stop: 04/06/21 15:08 Last Admin: 04/06/21 15:17 Dose: 120 mg Documented by: Enoxaparin Sodium (Enoxaparin 30 Mg/0.3 Ml Syringe) 30 mg SUBCUT DAILY [facility] Stop: 04/06/21 14:30 Last Admin: 04/06/21 08:27 Dose: 30 mg Documented by: Diltiazem HCl 5 mg/ Sodium (Chloride) 100 mls @ 5 mls/hr IV ASDIRECTED [facility] Magnesium Oxide (Magnesium Oxide 400 Mg Tab) 800 mg PO ONETIME ONE Stop: 04/07/21 11:31 Last Admin: 04/07/21 12:28 Dose: 800 mg Documented by: Metformin HCl (Metformin 850 Mg Tab) 850 mg PO BIDMEALS [facility] Last Admin: 04/07/21 06:00 Dose: 850 mg Documented by: Metoprolol Tartrate (Metoprolol Tartrate 5 Mg/5 Ml Sdv) 5 mg IVPUSH ONETIME ONE Stop: 04/05/21 11:38 Last Admin: 04/05/21 11:56 Dose: 5 mg Documented by: Metoprolol Tartrate (Metoprolol Tartrate 25 Mg Tab) 25 mg PO Q12H [facility] Last Admin: 04/07/21 17:25 Dose: 25 mg Documented by: Metoprolol Tartrate (Metoprolol Tartrate 50 Mg Tab) 12.5 mg PO ONETIME ONE Stop: 04/07/21 18:00 Last Admin: 04/07/21 18:27 Dose: Not Given Documented by: Metoprolol Tartrate (Metoprolol Tartrate 25 Mg Tab) 37.5 mg PO Q12H [facility] Last Admin: 04/08/21 05:58 Dose: 37.5 mg Documented by: Metoprolol Tartrate (Metoprolol Tartrate 25 Mg Tab) 12.5 mg PO ONETIME ONE Stop: 04/07/21 18:31 Last Admin: 04/07/21 18:30 Dose: 12.5 mg Documented by: Nortriptyline HCl (Nortriptyline 25 Mg Cap) 25 mg PO BEDTIME [facility] Last Admin: 04/05/21 19:59 Dose: 25 mg Documented by: Warfarin Sodium (Pharmacy To Dose - Warfarin) 0 dose .XX ASDIRECTED PRN PRN Reason: RX TO DOSE COUMADIN Warfarin Sodium (Warfarin 5 Mg Tab) 5 mg PO QPM [facility] Stop: 04/07/21 21:00 - Exam General: Reports: Alert, Oriented HEENT: Reports: EOMI, Mucous Membr. Moist/[place] Neck: Reports: Supple Lungs: Reports: Clear to Auscultation, Normal Respiratory Effort Cardiovascular: Reports: Irregular Rhythm GI/Abdominal Exam: Soft, Non-Tender, No Distention Back Exam: Reports: Normal Inspection Extremities: Normal Inspection Skin: Reports: Warm, Dry, Intact Neurological: Reports: No New Focal Deficit Psy/Mental Status: Reports: Alert, Normal Affect *Q Meaningful Use (DIS) - VTE *Q VTE Criteria *Q: 3
[2021-04-08] MEDS ORDERED: Apixaban 5 MG Tab PO SCH (21:00)
--- NOTE | 2021-04-10 18:26 | PCM.SN.2 ---
- Free Text/Narrative Note: ekg reading 04/05/21 aflutter 3:1 block vent rate 70-80. mild non spec st t wave changes likely related to aflutter. abnormal ekg no changes form prev. ekg in e.r. boh
== END 2021-04-08 13:00 | disposition home or self-care (01) | DRG 201 ==
LOC: JD.ED 15:31 → JD.ICU 19:19 → JD.MS 04-07 21:14
PROVIDERS: ADMIT Pediatrics; ATTEND Pediatrics
DX: I48.92 Unspecified atrial flutter (principal); D61.810 Antineoplastic chemotherapy induced pancytopenia; E11.65 Type 2 diabetes mellitus with hyperglycemia; T45.1X5A Adverse effect of antineoplastic and immunosuppressive drugs, initial encounter; Z92.21 Personal history of antineoplastic chemotherapy; C18.6 Malignant neoplasm of descending colon; I95.1 Orthostatic hypotension; E11.42 Type 2 diabetes mellitus with diabetic polyneuropathy; E86.0 Dehydration; I48.91 Unspecified atrial fibrillation; D70.1 Agranulocytosis secondary to cancer chemotherapy; Z20.822 Contact with and (suspected) exposure to COVID-19
CPT/HCPCS: 36415; 71045; 71045-26; 80048; 80053; 81001; 82550; 82947; 83036; 83605; 83735; 83880; 84443; 84484; 85025; 85379; 85610; 85652; 85730; 86140; 87040; 93005; 93010; 93306; 96374; 99233; 99239; 99284; 99285-25; A9270-GY; J1642; J1650; J1815-GY; J3490; U0002